=== PATIENT | female | born 1955 | race Caucasian/White ===

== ENCOUNTER 2021-01-30 20:51 | Emergency (ER) | payer MEDICARE, BC ==
--- NOTE | 2021-01-30 21:24 | EDM.PDOC ---
ED HPI GENERAL MEDICAL PROBLEM - General Stated Complaint: HIGH BS AND CHILLS Time Seen by Provider: 01/30/21 21:11 Source of Information: Reports: Patient - History of Present Illness INITIAL COMMENTS - FREE TEXT/NARRATIVE: Beverly is a 65 y/o female who presents to the ER with a 1 day history of chills. She apparently had a temp of 102 at home. Her blood suagr has also been elevated. and she just started to dysuria. She is usually seen at the [facility] in [place]. Has not had much of an appetite the last day. - Related Data Home Meds: Home Meds Levofloxacin [Levaquin] 500 mg PO DAILY #10 tablet 01/30/21 [Rx] Review of Systems - Review of Systems Review Of Systems: See Below Constitutional: Reports: Chills, Fever Eyes: Reports: No Symptoms Ears: Reports: No Symptoms Nose: Reports: No Symptoms Mouth/Throat: Reports: No Symptoms Respiratory: Reports: No Symptoms Cardiovascular: Reports: No Symptoms GI/Abdominal: Reports: Decreased Appetite Genitourinary: Reports: Dysuria Musculoskeletal: Reports: No Symptoms Skin: Reports: No Symptoms Neurological: Reports: No Symptoms Psychiatric: Reports: No Symptoms ED EXAM, GENERAL - Physical Exam Exam: See Below General Appearance: Alert, WD/WN, No Apparent Distress (Elderly female. SItting quietly on the ER cart.) Ears: Hearing Grossly Normal Nose: Normal Inspection Throat/Mouth: Normal Inspection, Normal Voice Head: Atraumatic, Normocephalic Neck: Normal Inspection, Supple Respiratory/Chest: No Respiratory Distress, Lungs Clear, Chest Non-Tender Cardiovascular: Normal Peripheral Pulses, Regular Rate, Rhythm GI/Abdominal: Normal Bowel Sounds, Soft (Female) Exam: Deferred Rectal (Female) Exam: Deferred Back Exam: Normal Inspection Extremities: No Pedal Edema, Normal Capillary Refill Neurological: Alert, Oriented, CN II-XII Intact, Normal Cognition, Normal Gait Skin Exam: Warm, Dry, Intact, Normal Color, No Rash Course - Vital Signs Text/Narrative:: 2110 The patient was seen by the DIRECTOR OF REHABILITATION. Labs ordered. She was given APAP 650mg po x 1 for fever of 103.2. 2230 Labs reviewed. CBC WBC=13.2, Neuts=86%. CMP Evmwef=217, BUN=22, Slip Bridge Operator=1.8, Mawbywy=172. UA +nitrates, sm ketones, WBC=20-30, Leuk Es=-small, Bacteria=many. Urine Cx pending. Will given Ceftriaxone 1gm IVP and a liter fo NS. Patient denies pain or nausea at this time. Will plan Levaquin for outpatient abx therapy. Patient denied any pain or nausea. Her fever did come down from the dose of APAP that she was given.\ Patient was given discharge instructions and left the ER in stable condition. - Orders/Labs/Meds Orders: Active Orders 24 hr Category Date Time Status CULTURE URINE [RM] Stat Lab 01/30/21 21:17 Received Sodium Chloride 0.9% [Normal Saline] 1,000 ml Med 01/30/21 22:30 Active IV ONETIME Medication Orders Sodium Chloride (Normal Saline) 1,000 mls @ 999 mls/hr IV ONETIME ONE Stop: 01/30/21 23:30 Labs: Laboratory Tests 01/30/21 01/30/21 01/30/21 Range/Units 21:08 21:17 21:36 WBC 13.2 H (4.0-10.0) x10^3/uL RBC 3.83 L (4.00-5.50) x10^6/uL Hgb 12.0 (12.0-16.0) g/dL Hct 34.3 (33.0-47.0) % MCV 89.6 (78.0-93.0) fL MCH 31.3 (26.0-32.0) pg MCHC 35.0 (32.0-36.0) g/dL RDW Coeff of Kris 12.2 (10.0-15.0) % Plt Count 298 (130-400) x10^3/uL Add Manual Diff Yes Neutrophils % (Manual) 86 H (50-80) % Band Neutrophils % 3 (0-6) % Lymphocytes % (Manual) 5 L (25-50) % Reactive Lymphs % 2 H (0) % Monocytes % (Manual) 4 (2-11) % Hypersegmented Neuts Few H Platelet Estimate Adequate Polychromasia Rare Target Cells Rare Sodium (136-145) mmol/L Potassium (3.5-5.1) mmol/L Chloride (98-107) mmol/L Carbon Dioxide (21-32) mmol/L Anion Gap (5-15) mmol/L BUN (7-18) mg/dL Creatinine (0.55-1.02) mg/dL Est Cr Clr Drug Dosing Estimated GFR (MDRD) Glucose (70-99) mg/dL POC Glucose 370 H (70-99) mg/dL Calcium (8.5-10.1) mg/dL Urine Color Yellow (YELLOW) Urine Appearance Slightly cloudy H (CLEAR) Urine pH 5.5 (5.0-8.0) Ur Specific [place] 1.020 Urine Protein >=300 H (NEGATIVE) mg/dL Urine Glucose (UA) 500 H (NEGATIVE) mg/dL Urine Ketones 15 H (NEGATIVE) mg/dL Urine Occult Blood Moderate H (NEGATIVE) Urine Nitrite Positive H (NEGATIVE) Urine Bilirubin Negative (NEGATIVE) Urine Urobilinogen 0.2 (0.2) EU/dL Ur Leukocyte Esterase Small H (NEGATIVE) U Hyaline Cast (Auto) Rare Urine RBC 5-10 H (NOT SEEN) /HPF Urine WBC 20-30 H (NOT SEEN) /HPF Ur Squamous Epith Cells Few H (NOT SEEN) /HPF Urine Bacteria Many H (NOT SEEN) /HPF Urine Mucus Few H (NOT SEEN) /LPF 01/30/21 Range/Units 21:36 WBC (4.0-10.0) x10^3/uL RBC (4.00-5.50) x10^6/uL Hgb (12.0-16.0) g/dL Hct (33.0-47.0) % MCV (78.0-93.0) fL MCH (26.0-32.0) pg MCHC (32.0-36.0) g/dL RDW Coeff of Kris (10.0-15.0) % Plt Count (130-400) x10^3/uL Add Manual Diff Neutrophils % (Manual) (50-80) % Band Neutrophils % (0-6) % Lymphocytes % (Manual) (25-50) % Reactive Lymphs % (0) % Monocytes % (Manual) (2-11) % Hypersegmented Neuts Platelet Estimate Polychromasia Target Cells Sodium 133 L (136-145) mmol/L Potassium 3.8 (3.5-5.1) mmol/L Chloride 94 L (98-107) mmol/L Carbon Dioxide 26 (21-32) mmol/L Anion Gap 16.8 H (5-15) mmol/L BUN 22 H (7-18) mg/dL Creatinine 1.8 H (0.55-1.02) mg/dL Est Cr Clr Drug Dosing TNP Estimated GFR (MDRD) 28 Glucose 406 H* (70-99) mg/dL POC Glucose (70-99) mg/dL Calcium 9.2 (8.5-10.1) mg/dL Urine Color (YELLOW) Urine Appearance (CLEAR) Urine pH (5.0-8.0) Ur Specific [place] Urine Protein (NEGATIVE) mg/dL Urine Glucose (UA) (NEGATIVE) mg/dL Urine Ketones (NEGATIVE) mg/dL Urine Occult Blood (NEGATIVE) Urine Nitrite (NEGATIVE) Urine Bilirubin (NEGATIVE) Urine Urobilinogen (0.2) EU/dL Ur Leukocyte Esterase (NEGATIVE) U Hyaline Cast (Auto) Urine RBC (NOT SEEN) /HPF Urine WBC (NOT SEEN) /HPF Ur Squamous Epith Cells (NOT SEEN) /HPF Urine Bacteria (NOT SEEN) /HPF Urine Mucus (NOT SEEN) /LPF Meds: Medications Generic Name Dose Route Start Last Admin Trade Name Freq PRN Reason Stop Dose Admin Sodium Chloride 1,000 mls @ 999 mls/hr 01/30/21 22:30 Normal Saline IV 01/30/21 23:30 ONETIME ONE Discontinued Medications Generic Name Dose Route Start Last Admin Trade Name Freq PRN Reason Stop Dose Admin Acetaminophen 650 mg 01/30/21 21:22 Acetaminophen 325 Mg Tab PO 01/30/21 21:23 NOW ONE Ceftriaxone Sodium 1 gm 01/30/21 22:30 Ceftriaxone 1 Gm Vial IVPUSH 01/30/21 22:31 STAT ONE Departure - Departure Time of Disposition: 22:46 Disposition: Home, Self-Care 01 Condition: Good Clinical Impression: Pyelonephritis Diabetes Qualifiers: Diabetes mellitus type: type 2 Diabetes mellitus snf insulin use: unspecified snf insulin use status Diabetes mellitus complication status: without complication Qualified Code(s): E11.9 - Type 2 diabetes mellitus without complications - Discharge Information *PRESCRIPTION DRUG MONITORING PROGRAM REVIEWED*: Not Applicable *COPY OF PRESCRIPTION DRUG MONITORING REPORT IN PATIENT DAMIÁN: Not Applicable Prescriptions: Levofloxacin [Levaquin] 500 mg PO DAILY #10 tablet Instructions: Pyelonephritis, Adult Referrals: PCP,Not In Area [Primary Care Provider] - - My Orders Last 24 Hours: My Active Orders 01/30/21 21:17 CULTURE URINE [RM] Stat 01/30/21 22:30 Sodium Chloride 0.9% [Normal Saline] 1,000 ml IV ONETIME - Assessment/Plan Last 24 Hours: My Active Orders 01/30/21 21:17 CULTURE URINE [RM] Stat 01/30/21 22:30 Sodium Chloride 0.9% [Normal Saline] 1,000 ml IV ONETIME Assessment:: 1)Pyelonephritis 2)Hx Diabetes Mellitus Plan: -Levaquin 500mg oral daily x 10 days #10(Rx) -Zofran 4 mg oral very 6 hours as needed for nausea #6(Rx) -Use acetaminophen or ibuprofen as needed for fever/pain -Push fluids -Rest -Your blood sugars will run higher since you have an infection. If you feel more ill and are not able to take your meds for any reason, you need to come back to the nearest ER for possible admission -Follow up next week for recheck with your Primary Care Physician
[2021-01-30 21:54] LABS: CHLORIDE,CL 94 mmol/L (98-107); SODIUM,NA 133 mmol/L (136-145)
[2021-01-30 21:56] LABS: ANION GAP 16.8 mmol/L (5-15)
[2021-01-30] MEDS: Acetaminophen 325 MG Tab PO ONE (21:56)
[2021-01-30] MEDS: cefTRIAXone 1 GM Vial IVPUSH ONE (22:45)
[2021-01-30] MEDS: Sodium Chloride 0.9% 1,000 ML IV ONE (22:45)
== END 2021-01-31 00:05 | disposition home or self-care (01) ==
LOC: VM.ED 20:51
DX: E11.9 Type 2 diabetes mellitus without complications (principal); N12 Tubulo-interstitial nephritis, not specified as acute or chronic
CPT/HCPCS: 36415; 80048; 81001; 82947; 85025; 87086; 87088; 87186; 96374; 99283; A9270; J0696; J7030; 99284

== ENCOUNTER 2021-01-31 16:40 | Observation (INO) | payer MEDICARE, BC ==
[2021-01-31] MEDS ORDERED: Ketorolac 30 MG/ML SDV IVPUSH ONE (16:56)
[2021-01-31] MEDS ORDERED: Ondansetron 4 MG/2 ML SDV IVPUSH ONE (16:56)
[2021-01-31] MEDS ORDERED: Sodium Chloride 0.9% 1,000 ML IV ONE (16:56)
--- NOTE | 2021-01-31 17:09 | EDM.PDOC ---
ED HPI GENERAL MEDICAL PROBLEM - General Chief Complaint: General Stated Complaint: SHAKING,DEHYDRATION Time Seen by Provider: 01/31/21 17:07 Source of Information: Reports: Patient, Family - History of Present Illness INITIAL COMMENTS - FREE TEXT/NARRATIVE: Beverly is a 65 y/o female who comes to the ER reporting that she is not feeling any better. She was seen last night for pyelonephritis and sent home with oral Levaquin. She took that this AM and then has also been taking APAP an ibuprofen. She is now shaking and has gotten nauseated. She did vomit on arrival to the ER. - Related Data Allergies Allergy/AdvReac Type Severity Reaction Status Date / Time No Known Allergies Allergy Verified 01/31/21 16:59 Home Meds: Home Meds Levofloxacin [Levaquin] 500 mg PO DAILY #10 tablet 01/30/21 [Rx] Aspirin 81 mg PO DAILY 01/31/21 [History] Calcium Carbonate/Vitamin D3 [Caltrate 600 + D Soft Chew Tab] 1 each PO BIDMEALS 01/31/21 [History] Losartan [Cozaar] 100 mg PO DAILY 01/31/21 [History] Lovastatin 20 mg PO BEDTIME 01/31/21 [History] Metoprolol Succinate [Toprol XL 100mg] 100 mg PO DAILY 01/31/21 [History] Multivitamin with Minerals [Multiple Vitamin] 1 tab PO DAILY 01/31/21 [History] Semaglutide [Rybelsus] 7 mg PO DAILY 01/31/21 [History] glipiZIDE [Glipizide ER] 10 mg PO BID 01/31/21 [History] hydroCHLOROthiazide [Hydrochlorothiazide] 25 mg PO DAILY 01/31/21 [History] metFORMIN [Glucophage XR] 2,000 mg PO DAILY 01/31/21 [History] Past Medical History Genitourinary History: Reports: UTI, Recurrent Endocrine/Metabolic History: Reports: Diabetes, Type II Social & Family History - Tobacco Use Tobacco Use Status *Q: Unknown Ever Used Tobacco ED ROS GENERAL - Review of Systems Review Of Systems: See Below Constitutional: Reports: Fever, Chills, Malaise, Weakness HEENT: Reports: No Symptoms Respiratory: Reports: No Symptoms Cardiovascular: Reports: No Symptoms Endocrine: Reports: No Symptoms GI/Abdominal: Reports: Decreased Appetite, Nausea, Vomiting Musculoskeletal: Reports: No Symptoms Skin: Reports: No Symptoms Neurological: Reports: No Symptoms Psychiatric: Reports: No Symptoms Hematologic/Lymphatic: Reports: No Symptoms Immunologic: Reports: No Symptoms ED EXAM, GENERAL - Physical Exam Exam: See Below General Appearance: Alert, WD/WN (Adult female, appears to not feel well.), Other (Patient is shaking on exam) Eye Exam: Bilateral Eye: PERRL Ears: Hearing Grossly Normal Nose: Normal Inspection Throat/Mouth: Normal Inspection, Normal Lips, Perioral Cyanosis Neck: Normal Inspection, Supple Respiratory/Chest: No Respiratory Distress, Lungs Clear, Chest Non-Tender Cardiovascular: Normal Peripheral Pulses, Regular Rate, Rhythm GI/Abdominal: Normal Bowel Sounds, Soft, Non-Tender (Female) Exam: Deferred Rectal (Female) Exam: Deferred Back Exam: Normal Inspection Extremities: Normal Inspection, Normal Range of Motion, Normal Capillary Refill Neurological: Alert, Oriented, CN II-XII Intact Psychiatric: Flat Affect Skin Exam: Warm, Dry, Intact, Normal Color Lymphatic: No Adenopathy Course - Vital Signs Text/Narrative:: 1704 The patient was seen by the RN TRANSITIONAL. Labs done. She was given a liter of IV fluids, Zofran 4mg IVP, and Toradol 30mg IVP. 1830 Lab reviewed. Note WBC=15.0, Neuts=85%; CMP BUN=25, Contract Project Manager=2.0, Zlpvtgo=[id number]. CRP=39.6. 24 hours urine cx report noted gram neg rods, should be covered with Levaquin. WBC is increasing and appears to be a bit more dehydrated. Having trouble with oral meds at home and is also diabetic. Discussed with patient and her and will admit her to Observation for IV abx, serial labs, and symptomatic cares. See Observation orders. COVID test ordered prior to admission. Last Recorded V/S: Last Vital Signs Temp 36.9 C 01/31/21 18:18 Pulse 101 H 01/31/21 18:18 Resp 12 01/31/21 18:18 BP 126/59 L 01/31/21 18:18 Pulse Ox 94 L 01/31/21 18:18 - Orders/Labs/Meds Orders: Active Orders 24 hr Category Date Time Status Patient Status [ADT] Routine ADT 01/31/21 18:29 Ordered Labs: Laboratory Tests 01/31/21 01/31/21 Range/Units 17:18 17:18 WBC 15.0 H (4.0-10.0) x10^3/uL RBC 4.18 (4.00-5.50) x10^6/uL Hgb 12.9 (12.0-16.0) g/dL Hct 36.9 (33.0-47.0) % MCV 88.3 (78.0-93.0) fL MCH 30.9 (26.0-32.0) pg MCHC 35.0 (32.0-36.0) g/dL RDW Coeff of Kris 12.2 (10.0-15.0) % Plt Count 289 (130-400) x10^3/uL Add Manual Diff Yes Neutrophils % (Manual) 85 H (50-80) % Lymphocytes % (Manual) 6 L (25-50) % Atypical Lymphs % 2 H (0) % Monocytes % (Manual) 7 (2-11) % Hypersegmented Neuts Few H Platelet Estimate Adequate Acanthocytes (Spur) Occasional Sodium 136 (136-145) mmol/L Potassium 4.2 (3.5-5.1) mmol/L Chloride 97 L (98-107) mmol/L Carbon Dioxide 23 (21-32) mmol/L Anion Gap 20.2 H (5-15) mmol/L BUN 25 H (7-18) mg/dL Creatinine 2.0 H (0.55-1.02) mg/dL Est Cr Clr Drug Dosing TNP Estimated GFR (MDRD) 25 Glucose 336 H (70-99) mg/dL Calcium 9.1 (8.5-10.1) mg/dL C-Reactive Protein 39.6 H (<=0.9) mg/dL Meds: Medications Discontinued Medications Generic Name Dose Route Start Last Admin Trade Name Freq PRN Reason Stop Dose Admin Sodium Chloride 1,000 mls @ 999 mls/hr 01/31/21 16:56 01/31/21 17:14 Normal Saline IV 01/31/21 17:56 999 mls/hr ONETIME ONE Administration Ketorolac Tromethamine 30 mg 01/31/21 16:56 01/31/21 17:23 Ketorolac 30 Mg/Ml Sdv IVPUSH 01/31/21 16:57 30 mg ONETIME ONE Administration Ondansetron HCl 4 mg 01/31/21 16:56 01/31/21 17:16 Ondansetron 4 Mg/2 Ml Sdv IVPUSH 01/31/21 16:57 4 mg ONETIME ONE Administration Departure - Departure Time of Disposition: 18:31 Disposition: Refer to Observation Condition: Good Clinical Impression: Pyelonephritis Diabetes Qualifiers: Diabetes mellitus type: type 2 Diabetes mellitus terminal carman insulin use: unspecified terminal carman insulin use status Diabetes mellitus complication status: without complication Qualified Code(s): E11.9 - Type 2 diabetes mellitus without complications - Discharge Information Referrals: Lidya Dhillon NP [Primary Care Provider] - Forms: ED Department Discharge Sepsis Event Note (ED) - Evaluation Sepsis Screening Result: No Definite Risk - Focused Exam Vital Signs: Vital Signs Temp Pulse Resp BP Pulse Ox 01/31/21 18:18 36.9 C 101 H 12 126/59 L 94 L 01/31/21 16:45 36.4 C 99 18 141/62 H 99 - My Orders Last 24 Hours: My Active Orders 01/31/21 18:29 Patient Status [ADT] Routine - Assessment/Plan Admission H&P: Please use this note as an admission H&P Last 24 Hours: My Active Orders 01/31/21 18:29 Patient Status [ADT] Routine Assessment:: 1)Pyelonephritis,Failed outpatient therapy 2)DM Plan: -Admit for IV abx and IV fluids -Serial Labs
[2021-01-31 17:36] LABS: CHLORIDE,CL 97 mmol/L (98-107); SODIUM,NA 136 mmol/L (136-145)
[2021-01-31 17:39] LABS: ANION GAP 20.2 mmol/L (5-15)
[2021-01-31] MEDS ORDERED: Acetaminophen 325 MG Tab PO PRN (18:36)
[2021-01-31] MEDS ORDERED: Promethazine 25 MG Tab PO PRN (18:36)
[2021-01-31] MEDS ORDERED: Acetaminophen/oxyCODONE 325-5 MG Tab PO PRN ×2 (18:36)
[2021-01-31] MEDS ORDERED: Sodium Chloride 0.9% 10 ML Syringe FLUSH PRN (18:36)
[2021-01-31] MEDS ORDERED: Ondansetron 4 MG Tab.DIS PO PRN (18:36)
[2021-01-31] MEDS ORDERED: Levofloxacin/Dextrose 5%-Water 500 MG in Premix Bag 1 BAG IV SCH (18:45)
[2021-01-31] MEDS: glipiZIDE 10 MG Tab.ER PO SCH (19:41)
[2021-01-31] MEDS: atorvaSTATin 10 MG Tab PO SCH (19:42)
[2021-01-31] MEDS ORDERED: Meropenem 1 GM in Sodium Chloride 0.9% 100 ML IV SCH (20:00)
[2021-01-31] MEDS ORDERED: LOVASTATIN 20 MG PO SCH (20:00)
[2021-02-01] MEDS: Meropenem 500 MG in Sodium Chloride 0.9% 100 ML IV SCH ×3 (04:47→19:31)
[2021-02-01] MEDS ORDERED: Non-Formulary Medication 1 Each (Metformin [Glucophage Xr] 500 MG Tab.Er) PO SCH ×2 (08:00→18:45)
[2021-02-01] MEDS: Metoprolol Succinate 50 MG Tab.ER PO SCH (08:03)
[2021-02-01] MEDS: glipiZIDE 10 MG Tab.ER PO SCH ×2 (08:03→17:56)
[2021-02-01] MEDS: Losartan 50 MG Tab PO SCH (08:04)
[2021-02-01] MEDS: Hydrochlorothiazide 25 MG Tab PO SCH (08:04)
[2021-02-01] MEDS: Aspirin 81 MG Tab.Chew PO SCH (08:04)
[2021-02-01 08:19] LABS: ANION GAP 13.5 mmol/L (5-15)
[2021-02-01] MEDS: Sodium Chloride 0.9% 1,000 ML IV SCH (10:37)
[2021-02-01] MEDS ORDERED: 50% Dextrose in Water 50 ML Syringe IV PRN (12:31)
[2021-02-01] MEDS ORDERED: Glucagon,Human Recombinant 1 MG Vial IM PRN (12:31)
--- NOTE | 2021-02-01 12:31 | PCM.PN ---
- General Info Date of Service: 02/01/21 Subjective Update: Patient is seen on rounds. Report she is feeling better. No further shaking episodes, nausea seems to be gone. Has been up to the bathroom to void. - Review of Systems General: Reports: No Symptoms HEENT: Reports: No Symptoms Pulmonary: Reports: No Symptoms Cardiovascular: Reports: No Symptoms Gastrointestinal: Reports: No Symptoms Genitourinary: Reports: No Symptoms Musculoskeletal: Reports: No Symptoms Skin: Reports: No Symptoms Neurological: Reports: No Symptoms Psychiatric: Reports: No Symptoms - Patient Data Vitals - Most Recent: Last Vital Signs Temp 36.4 C 02/01/21 10:00 Pulse 85 02/01/21 10:00 Resp 16 02/01/21 10:00 BP 116/56 L 02/01/21 10:00 Pulse Ox 95 02/01/21 10:00 Weight - Most Recent: 75.296 kg I&O - Last 24 Hours: Intake & Output 01/31/21 02/01/21 02/01/21 22:59 06:59 14:59 Intake Total 100 385 Output Total 250 100 Balance -150 285 Lab Results Last 24 Hours: Laboratory Results - last 24 hr 01/31/21 01/31/21 01/31/21 Range/Units 17:18 17:18 18:32 WBC 15.0 H (4.0-10.0) x10^3/uL RBC 4.18 (4.00-5.50) x10^6/uL Hgb 12.9 (12.0-16.0) g/dL Hct 36.9 (33.0-47.0) % MCV 88.3 (78.0-93.0) fL MCH 30.9 (26.0-32.0) pg MCHC 35.0 (32.0-36.0) g/dL RDW Coeff of Kris 12.2 (10.0-15.0) % Plt Count 289 (130-400) x10^3/uL Add Manual Diff Yes Neutrophils % (Manual) 85 H (50-80) % Lymphocytes % (Manual) 6 L (25-50) % Atypical Lymphs % 2 H (0) % Monocytes % (Manual) 7 (2-11) % Hypersegmented Neuts Few H Platelet Estimate Adequate Poikilocytosis Acanthocytes (Spur) Occasional Sodium 136 (136-145) mmol/L Potassium 4.2 (3.5-5.1) mmol/L Chloride 97 L (98-107) mmol/L Carbon Dioxide 23 (21-32) mmol/L Anion Gap 20.2 H (5-15) mmol/L BUN 25 H (7-18) mg/dL Creatinine 2.0 H (0.55-1.02) mg/dL Est Cr Clr Drug Dosing TNP Estimated GFR (MDRD) 25 Glucose 336 H (70-99) mg/dL POC Glucose (70-99) mg/dL Calcium 9.1 (8.5-10.1) mg/dL C-Reactive Protein 39.6 H (<=0.9) mg/dL SARS CoV-2 RNA Rapid BERNADINE Negative (NEGATIVE) 01/31/21 02/01/21 02/01/21 Range/Units 21:38 04:57 07:31 WBC 10.1 H (4.0-10.0) x10^3/uL RBC 3.39 L (4.00-5.50) x10^6/uL Hgb 10.4 L D (12.0-16.0) g/dL Hct 30.4 L (33.0-47.0) % MCV 89.7 (78.0-93.0) fL MCH 30.7 (26.0-32.0) pg MCHC 34.2 (32.0-36.0) g/dL RDW Coeff of Kris 12.1 (10.0-15.0) % Plt Count 259 (130-400) x10^3/uL Add Manual Diff Yes Neutrophils % (Manual) 77 (50-80) % Lymphocytes % (Manual) 11 L (25-50) % Atypical Lymphs % 2 H (0) % Monocytes % (Manual) 10 (2-11) % Hypersegmented Neuts Platelet Estimate Adequate Poikilocytosis Occasional Acanthocytes (Spur) Few Sodium (136-145) mmol/L Potassium (3.5-5.1) mmol/L Chloride (98-107) mmol/L Carbon Dioxide (21-32) mmol/L Anion Gap (5-15) mmol/L BUN (7-18) mg/dL Creatinine (0.55-1.02) mg/dL Est Cr Clr Drug Dosing Estimated GFR (MDRD) Glucose (70-99) mg/dL POC Glucose 356 H 219 H (70-99) mg/dL Calcium (8.5-10.1) mg/dL C-Reactive Protein (<=0.9) mg/dL SARS CoV-2 RNA Rapid BERNADINE (NEGATIVE) 02/01/21 Range/Units 07:31 WBC (4.0-10.0) x10^3/uL RBC (4.00-5.50) x10^6/uL Hgb (12.0-16.0) g/dL Hct (33.0-47.0) % MCV (78.0-93.0) fL MCH (26.0-32.0) pg MCHC (32.0-36.0) g/dL RDW Coeff of Kris (10.0-15.0) % Plt Count (130-400) x10^3/uL Add Manual Diff Neutrophils % (Manual) (50-80) % Lymphocytes % (Manual) (25-50) % Atypical Lymphs % (0) % Monocytes % (Manual) (2-11) % Hypersegmented Neuts Platelet Estimate Poikilocytosis Acanthocytes (Spur) Sodium 140 (136-145) mmol/L Potassium 3.5 (3.5-5.1) mmol/L Chloride 103 (98-107) mmol/L Carbon Dioxide 27 (21-32) mmol/L Anion Gap 13.5 (5-15) mmol/L BUN 28 H (7-18) mg/dL Creatinine 1.8 H (0.55-1.02) mg/dL Est Cr Clr Drug Dosing 28.78 Estimated GFR (MDRD) 28 Glucose 223 H (70-99) mg/dL POC Glucose (70-99) mg/dL Calcium 8.1 L (8.5-10.1) mg/dL C-Reactive Protein 31.7 H (<=0.9) mg/dL SARS CoV-2 RNA Rapid BERNADINE (NEGATIVE) Med Orders - Current: Current Medications Acetaminophen (Acetaminophen 325 Mg Tab) 650 mg PO Q4H PRN PRN Reason: Pain (Mild 1-3)/fever Aspirin (Aspirin 81 Mg Tab.Chew) 81 mg PO DAILY JO Last Admin: 02/01/21 08:04 Dose: 81 mg Documented by: Atorvastatin Calcium (Atorvastatin 10 Mg Tab) 5 mg PO BEDTIME [facility] Last Admin: 01/31/21 19:42 Dose: 5 mg Documented by: Glipizide (Glipizide 10 Mg Tab.Er) 10 mg PO BIDMEALS [facility] Last Admin: 02/01/21 08:03 Dose: 10 mg Documented by: Hydrochlorothiazide (Hydrochlorothiazide 25 Mg Tab) 25 mg PO DAILY [facility] Last Admin: 02/01/21 08:04 Dose: 25 mg Documented by: Levofloxacin/Dextrose 500 mg/ (Premix) 100 mls @ 100 mls/hr IV Q24H [facility] Meropenem 500 mg/ Sodium (Chloride) 100 mls @ 33 mls/hr IV Q8H [facility] Last Admin: 02/01/21 11:52 Dose: 33 mls/hr Documented by: Sodium Chloride (Normal Saline) 1,000 mls @ 125 mls/hr IV ASDIRECTED [facility] Last Admin: 02/01/21 10:37 Dose: 125 mls/hr Documented by: Losartan Potassium (Losartan 50 Mg Tab) 100 mg PO DAILY [facility] Last Admin: 02/01/21 08:04 Dose: 100 mg Documented by: Metoprolol Succinate (Metoprolol Succinate 50 Mg Tab.Er) 100 mg PO DAILY [facility] Last Admin: 02/01/21 08:03 Dose: 100 mg Documented by: Non-Formulary Medication (Metformin [Glucophage Xr]) 2,000 mg PO DAILY [facility] Non-Formulary Medication (Semaglutide [Rybelsus]) 7 mg PO DAILY [facility] Ondansetron HCl (Ondansetron 4 Mg Tab.Dis) 4 mg PO Q4H PRN PRN Reason: nausea, able to take PO Oxycodone/Acetaminophen (Acetaminophen/Oxycodone 325-5 Mg Tab) 1 tab PO Q4H PRN PRN Reason: Pain (moderate 4-6) Oxycodone/Acetaminophen (Acetaminophen/Oxycodone 325-5 Mg Tab) 2 tab PO Q4H PRN PRN Reason: Pain (moderate 4-6) Promethazine HCl (Promethazine 25 Mg Tab) 25 mg PO Q6H PRN PRN Reason: nausea, able to take PO Sodium Chloride (Sodium Chloride 0.9% 10 Ml Syringe) 10 ml FLUSH ASDIRECTED PRN PRN Reason: Keep Vein Open Discontinued Medications Sodium Chloride (Normal Saline) 1,000 mls @ 999 mls/hr IV ONETIME ONE Stop: 01/31/21 17:56 Last Admin: 01/31/21 17:14 Dose: 999 mls/hr Documented by: Meropenem 1 gm/ Sodium (Chloride) 100 mls @ 200 mls/hr IV Q8H [facility] Last Admin: 01/31/21 19:41 Dose: 200 mls/hr Documented by: Ketorolac Tromethamine (Ketorolac 30 Mg/Ml Sdv) 30 mg IVPUSH ONETIME ONE Stop: 01/31/21 16:57 Last Admin: 01/31/21 17:23 Dose: 30 mg Documented by: Ondansetron HCl (Ondansetron 4 Mg/2 Ml Sdv) 4 mg IVPUSH ONETIME ONE Stop: 01/31/21 16:57 Last Admin: 01/31/21 17:16 Dose: 4 mg Documented by: - Exam General: Alert, Oriented, No Acute Distress HEENT: Pupils Equal Neck: Supple Lungs: Clear to Auscultation, Normal Respiratory Effort Cardiovascular: Regular Rate GI/Abdominal Exam: Normal Bowel Sounds, Soft, Non-Tender (Female) Exam: Deferred Back Exam: No: CVA Tenderness (L), CVA Tenderness (R) Extremities: Normal Inspection, Normal Range of Motion, Non-Tender, Normal Capil berenice Refill Skin: Warm, Dry, Intact Psy/Mental Status: Alert, Normal Affect - Patient Data Lab Results Last 24 hrs: Laboratory Results - last 24 hr 01/31/21 01/31/21 01/31/21 Range/Units 17:18 17:18 18:32 WBC 15.0 H (4.0-10.0) x10^3/uL RBC 4.18 (4.00-5.50) x10^6/uL Hgb 12.9 (12.0-16.0) g/dL Hct 36.9 (33.0-47.0) % MCV 88.3 (78.0-93.0) fL MCH 30.9 (26.0-32.0) pg MCHC 35.0 (32.0-36.0) g/dL RDW Coeff of Kris 12.2 (10.0-15.0) % Plt Count 289 (130-400) x10^3/uL Add Manual Diff Yes Neutrophils % (Manual) 85 H (50-80) % Lymphocytes % (Manual) 6 L (25-50) % Atypical Lymphs % 2 H (0) % Monocytes % (Manual) 7 (2-11) % Hypersegmented Neuts Few H Platelet Estimate Adequate Poikilocytosis Acanthocytes (Spur) Occasional Sodium 136 (136-145) mmol/L Potassium 4.2 (3.5-5.1) mmol/L Chloride 97 L (98-107) mmol/L Carbon Dioxide 23 (21-32) mmol/L Anion Gap 20.2 H (5-15) mmol/L BUN 25 H (7-18) mg/dL Creatinine 2.0 H (0.55-1.02) mg/dL Est Cr Clr Drug Dosing TNP Estimated GFR (MDRD) 25 Glucose 336 H (70-99) mg/dL POC Glucose (70-99) mg/dL Calcium 9.1 (8.5-10.1) mg/dL C-Reactive Protein 39.6 H (<=0.9) mg/dL SARS CoV-2 RNA Rapid BERNADINE Negative (NEGATIVE) 01/31/21 02/01/21 02/01/21 Range/Units 21:38 04:57 07:31 WBC 10.1 H (4.0-10.0) x10^3/uL RBC 3.39 L (4.00-5.50) x10^6/uL Hgb 10.4 L D (12.0-16.0) g/dL Hct 30.4 L (33.0-47.0) % MCV 89.7 (78.0-93.0) fL MCH 30.7 (26.0-32.0) pg MCHC 34.2 (32.0-36.0) g/dL RDW Coeff of Kris 12.1 (10.0-15.0) % Plt Count 259 (130-400) x10^3/uL Add Manual Diff Yes Neutrophils % (Manual) 77 (50-80) % Lymphocytes % (Manual) 11 L (25-50) % Atypical Lymphs % 2 H (0) % Monocytes % (Manual) 10 (2-11) % Hypersegmented Neuts Platelet Estimate Adequate Poikilocytosis Occasional Acanthocytes (Spur) Few Sodium (136-145) mmol/L Potassium (3.5-5.1) mmol/L Chloride (98-107) mmol/L Carbon Dioxide (21-32) mmol/L Anion Gap (5-15) mmol/L BUN (7-18) mg/dL Creatinine (0.55-1.02) mg/dL Est Cr Clr Drug Dosing Estimated GFR (MDRD) Glucose (70-99) mg/dL POC Glucose 356 H 219 H (70-99) mg/dL Calcium (8.5-10.1) mg/dL C-Reactive Protein (<=0.9) mg/dL SARS CoV-2 RNA Rapid BERNADINE (NEGATIVE) 02/01/21 Range/Units 07:31 WBC (4.0-10.0) x10^3/uL RBC (4.00-5.50) x10^6/uL Hgb (12.0-16.0) g/dL Hct (33.0-47.0) % MCV (78.0-93.0) fL MCH (26.0-32.0) pg MCHC (32.0-36.0) g/dL RDW Coeff of Kris (10.0-15.0) % Plt Count (130-400) x10^3/uL Add Manual Diff Neutrophils % (Manual) (50-80) % Lymphocytes % (Manual) (25-50) % Atypical Lymphs % (0) % Monocytes % (Manual) (2-11) % Hypersegmented Neuts Platelet Estimate Poikilocytosis Acanthocytes (Spur) Sodium 140 (136-145) mmol/L Potassium 3.5 (3.5-5.1) mmol/L Chloride 103 (98-107) mmol/L Carbon Dioxide 27 (21-32) mmol/L Anion Gap 13.5 (5-15) mmol/L BUN 28 H (7-18) mg/dL Creatinine 1.8 H (0.55-1.02) mg/dL Est Cr Clr Drug Dosing 28.78 Estimated GFR (MDRD) 28 Glucose 223 H (70-99) mg/dL POC Glucose (70-99) mg/dL Calcium 8.1 L (8.5-10.1) mg/dL C-Reactive Protein 31.7 H (<=0.9) mg/dL SARS CoV-2 RNA Rapid BERNADINE (NEGATIVE) Result Diagrams: 02/01/21 07:31 02/01/21 07:31 Sepsis Event Note - Evaluation Sepsis Screening Result: No Definite Risk - Focused Exam Vital Signs: Vital Signs Temp Pulse Pulse Resp BP BP Pulse Ox 02/01/21 10:00 36.4 C 85 16 116/56 L 95 02/01/21 08:04 114/56 L 02/01/21 08:03 87 114/56 L 02/01/21 04:51 37.1 C 93 16 133/60 93 L 02/01/21 02:00 36.9 C 90 16 124/46 L 96 - Problem List Review Problem List Initiated/Reviewed/Updated: Yes - My Orders Last 24 Hours: My Active Orders 01/31/21 18:29 Patient Status [ADT] Routine 01/31/21 18:36 Blood Glucose Check, Bedside [RC] 07,11,17,20 Intake and Output [RC] 06,18 Oxygen Therapy [RC] PRN Up With Assistance [RC] 08,20 VTE/DVT Education [RC] .PRN Vital Signs [RC] 02,06,10,14,18,22 Acetaminophen [TylenoL] 650 mg PO Q4H PRN Acetaminophen/oxyCODONE [Percocet 325-5 MG] 1 tab PO Q4H PRN Acetaminophen/oxyCODONE [Percocet 325-5 MG] 2 tab PO Q4H PRN Ondansetron [Zofran ODT] 4 mg PO Q4H PRN Promethazine [Phenergan] 25 mg PO Q6H PRN Sodium Chloride 0.9% [Saline Flush] 10 ml FLUSH ASDIRECTED PRN Glucose Management Sub Q Reflex [OM.PC] Click to Edit Peripheral IV Insertion Adult [OM.PC] Routine Resuscitation Status Routine 01/31/21 18:38 Diabetes Education [RC] .PRN 01/31/21 18:39 Dietary Supplements [RC] ,01/31/21 18:45 Levofloxacin/Dextrose 5%-Water [Levaquin in D5W 500 MG/100 ML] 500 mg Premix Bag 1 bag IV Q24H 01/31/21 19:00 glipiZIDE [Glucotrol XL] 10 mg PO BIDMEALS 01/31/21 20:00 atorvaSTATin [Lipitor] 5 mg PO BEDTIME 02/01/21 04:00 Meropenem [Merrem] 500 mg Sodium Chloride 0.9% [Normal Saline] 100 ml IV Q8H 02/01/21 Breakfast [employer] Diet [DIET] 02/01/21 08:00 Aspirin 81 mg PO DAILY Losartan [Cozaar] 100 mg PO DAILY Metoprolol Succinate [Toprol XL] 100 mg PO DAILY Semaglutide [Rybelsus] 7 mg PO DAILY hydroCHLOROthiazide 25 mg PO DAILY metFORMIN [Glucophage XR] 2,000 mg PO DAILY 02/01/21 10:30 Sodium Chloride 0.9% [Normal Saline] 1,000 ml IV ASDIRECTED 02/02/21 05:11 BASIC METABOLIC PANEL,BMP [CHEM] AM C-REACTIVE PROTEIN [CHEM] AM CBC WITH AUTO DIFF [HEME] AM - Assessment Assessment:: 1)Pyelonephritis 2)DM Type 2 3)Renal Insufficiency - Plan Plan:: -WBC is improving. WBC 10.1 and diff normalized. Note BUN increased to 28 and Manager Cash also increased to 2.0. -Continue IV fluids today -Receiving Meropenem. Pharmacy recommended alternatie doing due to kidney function -Will add sliding scale insulin coverage while admitted. Blood sugars running in the 300s. -AM labs
[2021-02-01] MEDS: Insulin Regular, Human 100 Units/ML 3 ML Vial SUBCUT SCH ×2 (14:34→17:56)
[2021-02-01] MEDS: atorvaSTATin 10 MG Tab PO SCH (19:32)
[2021-02-02] MEDS: Sodium Chloride 0.9% 1,000 ML IV SCH (00:47)
[2021-02-02] MEDS: Meropenem 500 MG in Sodium Chloride 0.9% 100 ML IV SCH (05:03)
[2021-02-02] MEDS: Hydrochlorothiazide 25 MG Tab PO SCH (07:54)
[2021-02-02] MEDS: glipiZIDE 10 MG Tab.ER PO SCH (07:54)
[2021-02-02] MEDS: Aspirin 81 MG Tab.Chew PO SCH (07:54)
[2021-02-02] MEDS: Losartan 50 MG Tab PO SCH (07:54)
[2021-02-02] MEDS: Metoprolol Succinate 50 MG Tab.ER PO SCH (07:54)
[2021-02-02] MEDS: Insulin Regular, Human 100 Units/ML 3 ML Vial SUBCUT SCH (07:56)
[2021-02-02 09:17] LABS: ANION GAP 12.4 mmol/L (5-15)
[2021-02-02] MEDS ORDERED: Amoxicillin/Clavulanate K 500-125 MG Tab PO ONE (14:42)
--- NOTE | 2021-02-02 23:13 | PCM.DCSUM1 ---
Discharge Summary - Hospital Course Free Text/Narrative:: Pt. was admitted observation status for acute pyelonephritis and weakness. Pt. had initially been seen in ER and was discharged, only to return later at which time she was admitted. Pt. has a history of stage 3 chronic kidney disease. She was started on IV Merropenem. Urine cultures grew e coli susceptible to all antibiotics in the susceptibility spectrum. Labs were repeated this AM. Her white count was decreased, as was her CRP. Kidney function had improved as well. Pt. last dose of IV antibiotics was during rounds this AM. Pt. is very eager to be released this AM. She will be started on renally adjusted augmentin (500mg BID) which has activity against this strain of e coli. Will treat the patient for 10 days, and advise follow-up in 10 days time to ensure resolution of the infection. Diagnosis: Stroke: No - Discharge Data Discharge Date: 02/02/21 Discharge Disposition: Home, Self-Care 01 Condition: Good - Referral to Home Health Primary Care Physician: Lidya Dhillon NP - Discharge Diagnosis/Problem(s) (1) Pyelonephritis SNOMED Code(s): 69910639 ICD Code: N12 - TUBULO-INTERSTITIAL NEPHRITIS, NOT SPCF ACUTE OR CHRONIC Status: Acute - Patient Instructions Driving: Do Not Drive Showering/Bathing: May Shower Notify Provider of: Fever, Nausea and/or Vomiting - Discharge Plan Home Medications: Home Meds Aspirin 81 mg PO DAILY 01/31/21 [History] Calcium Carbonate/Vitamin D3 [Caltrate 600 + D Soft Chew Tab] 1 each PO BIDMEALS 01/31/21 [History] Losartan [Cozaar] 100 mg PO DAILY 01/31/21 [History] Lovastatin 20 mg PO BEDTIME 01/31/21 [History] Metoprolol Succinate [Toprol XL 100mg] 100 mg PO DAILY 01/31/21 [History] Multivitamin with Minerals [Multiple Vitamin] 1 tab PO DAILY 01/31/21 [History] Semaglutide [Rybelsus] 7 mg PO DAILY 01/31/21 [History] glipiZIDE [Glipizide ER] 10 mg PO BID 01/31/21 [History] hydroCHLOROthiazide [Hydrochlorothiazide] 25 mg PO DAILY 01/31/21 [History] metFORMIN [Glucophage XR] 2,000 mg PO DAILY 01/31/21 [History] Forms: ED Department Discharge Referrals: Lidya Dhillon NP [Primary Care Provider] - - Discharge Summary/Plan Comment DC Time >30 min.: Yes Discharge Summary/Plan Comment: Continue with current medications. Stop levaquin. Start augmentin 500mg 1 twice daily for 10 days Drink plenty of fluids. Tylenol for fever. Recheck in clinic in 10-14 days - General Info Functional Status: Reports: Pain Controlled, Tolerating Diet, Ambulating, Urinating - Review of Systems General: Reports: No Symptoms. Denies: Fever, Weakness HEENT: Reports: No Symptoms Pulmonary: Reports: No Symptoms Cardiovascular: Reports: No Symptoms Gastrointestinal: Reports: No Symptoms Genitourinary: Reports: No Symptoms Musculoskeletal: Reports: No Symptoms Skin: Reports: No Symptoms Neurological: Reports: No Symptoms Psychiatric: Reports: No Symptoms - Patient Data Vitals - Most Recent: Last Vital Signs Temp 36.6 C 02/02/21 05:24 Pulse 84 02/02/21 07:54 Resp 16 02/02/21 05:24 BP 131/66 02/02/21 07:54 Pulse Ox 96 02/02/21 05:24 Weight - Most Recent: 75.296 kg Lab Results - Last 24 hrs: Laboratory Results - last 24 hr 02/02/21 02/02/21 02/02/21 Range/Units 05:11 08:40 08:40 WBC 9.3 (4.0-10.0) x10^3/uL RBC 3.63 L (4.00-5.50) x10^6/uL Hgb 11.2 L (12.0-16.0) g/dL Hct 32.4 L (33.0-47.0) % MCV 89.3 (78.0-93.0) fL MCH 30.9 (26.0-32.0) pg MCHC 34.6 (32.0-36.0) g/dL RDW Coeff of Kris 12.1 (10.0-15.0) % Plt Count 276 (130-400) x10^3/uL Neut % (Auto) 70.4 (50.0-80.0) % Lymph % (Auto) 17.9 L (25.0-50.0) % Lucas % (Auto) 11.1 H (2.0-11.0) % Eos % (Auto) 0.4 (0.0-4.0) % Baso % (Auto) 0.2 (0.2-1.2) % Sodium 139 (136-145) mmol/L Potassium 3.4 L (3.5-5.1) mmol/L Chloride 103 (98-107) mmol/L Carbon Dioxide 27 (21-32) mmol/L Anion Gap 12.4 (5-15) mmol/L BUN 18 (7-18) mg/dL Creatinine 1.5 H (0.55-1.02) mg/dL Est Cr Clr Drug Dosing 34.54 mL/min Estimated GFR (MDRD) 35 Glucose 196 H (70-99) mg/dL POC Glucose 125 H (70-99) mg/dL Calcium 8.2 L (8.5-10.1) mg/dL Corrected Calcium 9.7 (8.5-10.1) mg/dL Total Bilirubin 0.5 (0.2-1.0) mg/dL AST 17 (15-37) U/L ALT 13 L (14-59) U/L Alkaline Phosphatase 57 (46-116) U/L C-Reactive Protein 19.1 H (<=0.9) mg/dL Total Protein 6.2 L (6.4-8.2) g/dL Albumin 2.1 L (3.4-5.0) g/dL Globulin 4.1 Albumin/Globulin Ratio 0.51 Med Orders - Current: Current Medications Discontinued Medications Acetaminophen (Acetaminophen 325 Mg Tab) 650 mg PO Q4H PRN PRN Reason: Pain (Mild 1-3)/fever Amoxicillin/Clavulanate Potassium (Amoxicillin/Clavulanate K 500-125 Mg Tab) 1 tab PO ONETIME ONE Stop: 02/02/21 14:43 Aspirin (Aspirin 81 Mg Tab.Chew) 81 mg PO DAILY [facility] Last Admin: 02/02/21 07:54 Dose: 81 mg Documented by: Atorvastatin Calcium (Atorvastatin 10 Mg Tab) 5 mg PO BEDTIME [facility] Last Admin: 02/01/21 19:32 Dose: 5 mg Documented by: Dextrose/Water (50% Dextrose In Water 50 Ml Syringe) 50 ml IV ASDIRECTED PRN PRN Reason: Hypoglycemia Glipizide (Glipizide 10 Mg Tab.Er) 10 mg PO BIDMEALS [facility] Last Admin: 02/02/21 07:54 Dose: 10 mg Documented by: Glucagon (Glucagon,Human Recombinant 1 Mg Vial) 1 mg IM ASDIRECTED PRN PRN Reason: Hypoglycemia Hydrochlorothiazide (Hydrochlorothiazide 25 Mg Tab) 25 mg PO DAILY [facility] Last Admin: 02/02/21 07:54 Dose: 25 mg Documented by: Sodium Chloride (Normal Saline) 1,000 mls @ 999 mls/hr IV ONETIME ONE Stop: 01/31/21 17:56 Last Admin: 01/31/21 17:14 Dose: 999 mls/hr Documented by: Levofloxacin/Dextrose 500 mg/ (Premix) 100 mls @ 100 mls/hr IV Q24H [facility] Last Admin: 02/01/21 21:13 Dose: Not Given Documented by: Meropenem 1 gm/ Sodium (Chloride) 100 mls @ 200 mls/hr IV Q8H [facility] Last Admin: 01/31/21 19:41 Dose: 200 mls/hr Documented by: Meropenem 500 mg/ Sodium (Chloride) 100 mls @ 33 mls/hr IV Q8H [facility] Last Admin: 02/02/21 05:03 Dose: 33 mls/hr Documented by: Sodium Chloride (Normal Saline) 1,000 mls @ 125 mls/hr IV ASDIRECTED [facility] Last Admin: 02/02/21 00:47 Dose: 125 mls/hr Documented by: Insulin Human Regular (Insulin Regular, Human 100 Units/Ml 3 Ml Vial) 0 unit SUBCUT TIDMEALS [facility]; Protocol Last Admin: 02/02/21 07:56 Dose: Not Given Documented by: Ketorolac Tromethamine (Ketorolac 30 Mg/Ml Sdv) 30 mg IVPUSH ONETIME ONE Stop: 01/31/21 16:57 Last Admin: 01/31/21 17:23 Dose: 30 mg Documented by: Losartan Potassium (Losartan 50 Mg Tab) 100 mg PO DAILY [facility] Last Admin: 02/02/21 07:54 Dose: 100 mg Documented by: Metoprolol Succinate (Metoprolol Succinate 50 Mg Tab.Er) 100 mg PO DAILY [facility] Last Admin: 02/02/21 07:54 Dose: 100 mg Documented by: Non-Formulary Medication (Metformin [Glucophage Xr]) 2,000 mg PO DAILY [facility] Last Admin: 02/01/21 21:13 Dose: Not Given Documented by: Non-Formulary Medication (Semaglutide [Rybelsus]) 7 mg PO DAILY [facility] Last Admin: 02/01/21 21:13 Dose: Not Given Documented by: Non-Formulary Medication (Metformin [Glucophage Xr]) 2,000 mg PO DAILY [facility] Non-Formulary Medication (Semaglutide [Rybelsus]) 7 mg PO DAILY [facility] Ondansetron HCl (Ondansetron 4 Mg/2 Ml Sdv) 4 mg IVPUSH ONETIME ONE Stop: 01/31/21 16:57 Last Admin: 01/31/21 17:16 Dose: 4 mg Documented by: Ondansetron HCl (Ondansetron 4 Mg Tab.Dis) 4 mg PO Q4H PRN PRN Reason: nausea, able to take PO Oxycodone/Acetaminophen (Acetaminophen/Oxycodone 325-5 Mg Tab) 1 tab PO Q4H PRN PRN Reason: Pain (moderate 4-6) Oxycodone/Acetaminophen (Acetaminophen/Oxycodone 325-5 Mg Tab) 2 tab PO Q4H PRN PRN Reason: Pain (moderate 4-6) Promethazine HCl (Promethazine 25 Mg Tab) 25 mg PO Q6H PRN PRN Reason: nausea, able to take PO Sodium Chloride (Sodium Chloride 0.9% 10 Ml Syringe) 10 ml FLUSH ASDIRECTED PRN PRN Reason: Keep Vein Open - Exam General: Reports: Alert, Oriented Lungs: Reports: Clear to Auscultation, Normal Respiratory Effort Cardiovascular: Reports: Regular Rate, Regular Rhythm GI/Abdominal Exam: Normal Bowel Sounds, Soft, Non-Tender, No Distention, No Mass (Female) Exam: Deferred Rectal (Female) Exam: Deferred Back Exam: Reports: Normal Inspection, Full Range of Motion Extremities: Normal Inspection, Normal Range of Motion, Non-Tender, No Pedal Edema, Normal Capillary Refill Skin: Reports: Warm, Dry, Intact Neurological: Reports: No New Focal Deficit Psy/Mental Status: Reports: Alert, Normal Affect, Normal Mood
== END 2021-02-02 10:35 | disposition home or self-care (01) ==
LOC: VM.ED 16:40 → VM.MS 18:29 → UNDODISOB 02-01 18:35
PROVIDERS: ADMIT Nurse Practitioner Family; ATTEND Nurse Practitioner Family
DX: N12 Tubulo-interstitial nephritis, not specified as acute or chronic (principal); E11.9 Type 2 diabetes mellitus without complications; Z79.84 Long term (current) use of oral hypoglycemic drugs; Z20.822 Contact with and (suspected) exposure to COVID-19; Z79.899 Other long term (current) drug therapy; Z79.82 Long term (current) use of aspirin
CPT/HCPCS: 36415; 80048; 80053; 82947; 85025; 86140; 96365; 96366; 96374; 96375; 96376; 99217; 99220; 99225; 99284-25; A9270-GY; G0378; J1815-GY; J1885; J2185; J2405; J7030; U0002

== ENCOUNTER 2021-05-13 21:35 | Inpatient (IN) | payer MEDICARE, BC ==
[2021-05-13] MEDS ORDERED: Sodium Chloride 0.9% 10 ML Syringe FLUSH PRN (22:06)
[2021-05-13] MEDS ORDERED: Ondansetron 4 MG/2 ML SDV IV ONE (22:06)
[2021-05-13] MEDS ORDERED: Lactated Ringers 1,000 ML IV ONE ×2 (22:06→22:50)
--- NOTE | 2021-05-13 22:16 | EDM.PDOC ---
ED HPI GENERAL MEDICAL PROBLEM - General Stated Complaint: NOT FEELING WELL Time Seen by Provider: 05/13/21 22:01 Source of Information: Reports: Patient History Limitations: Reports: No Limitations - History of Present Illness INITIAL COMMENTS - FREE TEXT/NARRATIVE: Patient comes emergency department today from home with concerns of not feeling well for about 7 days. The patient is a very poor historian at best. She relates that she has a history of diabetes she believes. She denies any other history. She is unsure if she has had any surgeries in her abdomen in the past but does tell me that she has had a hysterectomy. She has had some changes in her diabetic medications recently. Her blood sugars last couple of days have been in the 300s and today at home it read high. She does have a history of asymptomatic pyelonephritis as well that she has been hospitalized for. She has had nausea and vomiting for the past 7 days although today it was much better and she has been able to drink fluids today. Today was a day when she had a high reading on her glucometer. She has had no chest pain or shortness of breath or difficulty breathing. No cough or congestion. No weakness dizziness lightheadedness. No syncope. She has no pain in her abdomen other than when she has vomiting. She has had no hematuria dysuria urinary frequency. No black or tarry stools. No flank pain. - Related Data Allergies Allergy/AdvReac Type Severity Reaction Status Date / Time No Known Allergies Allergy Verified 05/13/21 23:46 Home Meds: Home Meds Aspirin 81 mg PO DAILY 01/31/21 [History] Calcium Carbonate/Vitamin D3 [Caltrate 600 + D Soft Chew Tab] 1 each PO BIDMEALS 01/31/21 [History] Losartan [Cozaar] 100 mg PO DAILY 01/31/21 [History] Lovastatin 20 mg PO BEDTIME 01/31/21 [History] Metoprolol Succinate [Toprol XL 100mg] 100 mg PO DAILY 01/31/21 [History] Multivitamin with Minerals [Multiple Vitamin] 1 tab PO DAILY 01/31/21 [History] hydroCHLOROthiazide [Hydrochlorothiazide] 25 mg PO DAILY 01/31/21 [History] metFORMIN [Glucophage XR] 2,000 mg PO DAILY 01/31/21 [History] Ondansetron [Zofran ODT] 4 mg PO Q8H PRN 05/13/21 [History] Semaglutide [Rybelsus] 14 mg PO DAILY 05/13/21 [History] glipiZIDE [Glipizide ER] 10 mg PO DAILY 05/13/21 [History] Past Medical History Cardiovascular History: Reports: High Cholesterol, Hypertension Other Gastrointestinal History: rectocele Genitourinary History: Reports: Chronic Renal Insuffiency, UTI, Recurrent Other Genitourinary History: cystocele Endocrine/Metabolic History: Reports: Diabetes, Type II Social & Family History - Caffeine Use Caffeine Use: Reports: Soda ED ROS GENERAL - Review of Systems Review Of Systems: Comprehensive ROS is negative, except as noted in HPI. ED EXAM, GI/ABD - Physical Exam Exam: See Below Text/Narrative:: She is alert appropriate does not appear to be confused although she is really struggling to answer even simple questions. She has a fine tremor noted at rest. Exam Limited By: No Limitations General Appearance: Alert, WD/WN, No Apparent Distress Eyes: Bilateral: EOMI Ears: Normal External Exam Nose: Normal Inspection Throat/Mouth: Normal Inspection Head: Atraumatic, Normocephalic Neck: Normal Inspection, Supple, Non-Tender, Full Range of Motion Respiratory/Chest: No Respiratory Distress, Lungs Clear, Normal Breath Sounds, No Accessory Muscle Use, Chest Non-Tender Cardiovascular: Normal Peripheral Pulses, Regular Rate, Rhythm GI/Abdominal Exam: Normal Bowel Sounds, Soft, Non-Tender (Female) Exam: Deferred Rectal (Female) Exam: Deferred Back Exam: Normal Inspection, Full Range of Motion. No: CVA Tenderness (L), CVA Tenderness (R) Extremities: Normal Inspection, Normal Range of Motion, Non-Tender, No Pedal Edema, Normal Capillary Refill Neurological: Alert, Oriented, CN II-XII Intact, Normal Cognition, No Motor/Sensory Deficits Psychiatric: Flat Affect Skin Exam: Intact, Normal Color, Cool, Diaphoretic (minimally) Lymphatic: No Adenopathy Course - Vital Signs Last Recorded V/S: Last Vital Signs Temp 97.9 F 05/14/21 05:42 Pulse 95 05/14/21 05:42 Resp 16 05/14/21 05:42 BP 144/57 H 05/14/21 05:42 Pulse Ox 99 05/14/21 05:42 - Orders/Labs/Meds Orders: Active Orders 24 hr Category Date Time Status CULTURE BLOOD [BC] Stat Lab 05/13/21 22:08 Received CULTURE BLOOD [BC] Stat Lab 05/13/21 22:15 Received CULTURE URINE [RM] Stat Lab 05/13/21 22:58 Received Sodium Chloride 0.9% [Saline Flush] Med 05/13/21 22:06 Active 10 ml FLUSH ASDIRECTED PRN Blood Culture x2 Reflex Set [OM.PC] Stat Ot 05/13/21 22:09 Ordered Peripheral IV Insertion Adult [OM.PC] Stat Ot 05/13/21 22:06 Ordered Medication Orders Acetaminophen (Acetaminophen 325 Mg Tab) 650 mg PO Q4H PRN PRN Reason: Pain (Mild 1-3)/fever Aspirin (Aspirin 81 Mg Tab.Chew) 81 mg PO DAILY [facility] Calcium Carbonate (Calcium Carbonate/Vitamin D3 1250 Mg-5 Mcg Tab) 1 tab PO BIDMEALS [facility] Ceftriaxone Sodium (Ceftriaxone 2 Gm Vial) 2 gm IVPUSH DAILY [facility] Dextrose/Water (50% Dextrose In Water 50 Ml Syringe) 50 ml IVPUSH ASDIRECTED PRN PRN Reason: Hypoglycemia Enoxaparin Sodium (Enoxaparin 30 Mg/0.3 Ml Syringe) 30 mg SUBCUT DAILY@2000 [facility] Glucagon (Glucagon,Human Recombinant 1 Mg Vial) 1 mg IM ASDIRECTED PRN PRN Reason: Hypoglycemia Sodium Chloride (Normal Saline) 1,000 mls @ 200 mls/hr IV ASDIRECTED [facility] Last Admin: 05/14/21 05:38 Dose: 200 mls/hr Documented by: YOSI Sodium Chloride (Normal Saline) 1,000 mls @ 500 mls/hr IV ASDIRECTED [facility] Last Admin: 05/14/21 00:35 Dose: 500 mls/hr Documented by: AUGUSTINA Insulin Human Lispro (Insulin Lispro 100 Units/Ml 3 Ml Vial) 0 unit SUBCUT TIDMEALS [facility]; Protocol Metoprolol Succinate (Metoprolol Succinate 50 Mg Tab.Er) 100 mg PO DAILY [facility] Ondansetron HCl (Ondansetron 4 Mg/2 Ml Sdv) 4 mg IV Q6H PRN PRN Reason: Nausea/Vomiting Sodium Chloride (Sodium Chloride 0.9% 10 Ml Syringe) 10 ml FLUSH ASDIRECTED PRN PRN Reason: Keep Vein Open Labs: Laboratory Tests 05/13/21 05/13/21 05/13/21 Range/Units 22:08 22:08 22:08 WBC 20.1 H* (4.0-10.0) x10^3/uL RBC 4.39 (4.00-5.50) x10^6/uL Hgb 13.0 (12.0-16.0) g/dL Hct 36.7 (33.0-47.0) % MCV 83.6 (78.0-93.0) fL MCH 29.6 (26.0-32.0) pg MCHC 35.4 (32.0-36.0) g/dL RDW Coeff of Kris 12.2 (10.0-15.0) % Plt Count 701 H (130-400) x10^3/uL Add Manual Diff Yes Neutrophils % (Manual) 88 H (50-80) % Band Neutrophils % 1 (0-6) % Lymphocytes % (Manual) 4 L (25-50) % Monocytes % (Manual) 6 (2-11) % Metamyelocytes % 1 H (0) % Immature Gran # 0.20 H (0.00-0.07) X10^3/Ul Absolute Neutrophils 17.9 H (1.8-7.7) x10^3/uL Lymphocytes # (Manual) 0.8 L (1.0-4.8) x10^3/uL Monocytes # (Manual) 1.2 H (0.0-0.8) x10^3/uL Platelet Estimate Increased H POC VBG pH (7.33-7.43) pH POC VBG pCO2 (41-51) mmHg POC VBG pO2 mmHg POC VBG HCO3 (22-29) mmol/L POC Venous O2 Sat % VBG Base Excess (-(2)-3) mmol/L POC FiO2 Sodium 128 L* D (136-145) mmol/L Potassium 4.7 (3.5-5.1) mmol/L Chloride 88 L D (98-107) mmol/L Carbon Dioxide 18 L (21-32) mmol/L POC Venous Total CO2 (23-30) mmol/L Anion Gap 26.7 H (5-15) mmol/L BUN 120 H* D (7-18) mg/dL Creatinine 8.6 H* D (0.55-1.02) mg/dL Est Cr Clr Drug Dosing TNP Estimated GFR (MDRD) 5 Glucose 582 H* (70-99) mg/dL Lactic Acid 5.3 H* (0.4-2.0) mmol/L Calcium 8.6 (8.5-10.1) mg/dL Corrected Calcium 9.4 (8.5-10.1) mg/dL Magnesium (1.8-2.4) mg/dL Total Bilirubin 0.5 (0.2-1.0) mg/dL AST 11 L (15-37) U/L ALT 14 (14-59) U/L Alkaline Phosphatase 74 (46-116) U/L C-Reactive Protein 12.9 H (<=0.9) mg/dL Total Protein 7.5 (6.4-8.2) g/dL Albumin 3.0 L (3.4-5.0) g/dL Globulin 4.5 Albumin/Globulin Ratio 0.67 Lipase 8569 H (73-393) U/L Procalcitonin (0.1-0.50) ng/mL 05/13/21 05/13/21 05/13/21 Range/Units 22:08 22:08 22:22 WBC (4.0-10.0) x10^3/uL RBC (4.00-5.50) x10^6/uL Hgb (12.0-16.0) g/dL Hct (33.0-47.0) % MCV (78.0-93.0) fL MCH (26.0-32.0) pg MCHC (32.0-36.0) g/dL RDW Coeff of Kris (10.0-15.0) % Plt Count (130-400) x10^3/uL Add Manual Diff Neutrophils % (Manual) (50-80) % Band Neutrophils % (0-6) % Lymphocytes % (Manual) (25-50) % Monocytes % (Manual) (2-11) % Metamyelocytes % (0) % Immature Gran # (0.00-0.07) X10^3/Ul Absolute Neutrophils (1.8-7.7) x10^3/uL Lymphocytes # (Manual) (1.0-4.8) x10^3/uL Monocytes # (Manual) (0.0-0.8) x10^3/uL Platelet Estimate POC VBG pH 7.39 (7.33-7.43) pH POC VBG pCO2 26 L (41-51) mmHg POC VBG pO2 59 mmHg POC VBG HCO3 16 L (22-29) mmol/L POC Venous O2 Sat 91 % VBG Base Excess -9 L (-(2)-3) mmol/L POC FiO2 21 Sodium (136-145) mmol/L Potassium (3.5-5.1) mmol/L Chloride (98-107) mmol/L Carbon Dioxide (21-32) mmol/L POC Venous Total CO2 17 L (23-30) mmol/L Anion Gap (5-15) mmol/L BUN (7-18) mg/dL Creatinine (0.55-1.02) mg/dL Est Cr Clr Drug Dosing Estimated GFR (MDRD) Glucose (70-99) mg/dL Lactic Acid (0.4-2.0) mmol/L Calcium (8.5-10.1) mg/dL Corrected Calcium (8.5-10.1) mg/dL Magnesium 2.1 (1.8-2.4) mg/dL Total Bilirubin (0.2-1.0) mg/dL AST (15-37) U/L ALT (14-59) U/L Alkaline Phosphatase (46-116) U/L C-Reactive Protein (<=0.9) mg/dL Total Protein (6.4-8.2) g/dL Albumin (3.4-5.0) g/dL Globulin Albumin/Globulin Ratio Lipase (73-393) U/L Procalcitonin 1.48 H (0.1-0.50) ng/mL Meds: Medications Generic Name Dose Route Start Last Admin Trade Name Freq PRN Reason Stop Dose Admin Acetaminophen 650 mg 05/13/21 23:33 Acetaminophen 325 Mg Tab PO Q4H PRN Pain (Mild 1-3)/fever Aspirin 81 mg 05/14/21 08:00 Aspirin 81 Mg Tab.Chew PO DAILY [facility] Calcium Carbonate 1 tab 05/14/21 08:00 Calcium Carbonate/Vitamin D3 1250 Mg-5 Mcg Tab PO BIDMEALS [facility] Ceftriaxone Sodium 2 gm 05/14/21 22:00 Ceftriaxone 2 Gm Vial IVPUSH DAILY [facility] Dextrose/Water 50 ml 05/13/21 23:45 50% Dextrose In Water 50 Ml Syringe IVPUSH ASDIRECTED PRN Hypoglycemia Enoxaparin Sodium 30 mg 05/14/21 20:00 Enoxaparin 30 Mg/0.3 Ml Syringe SUBCUT DAILY@2000 [facility] Glucagon 1 mg 05/13/21 23:45 Glucagon,Human Recombinant 1 Mg Vial IM ASDIRECTED PRN Hypoglycemia Sodium Chloride 1,000 mls @ 200 mls/hr 05/13/21 23:45 05/14/21 05:38 Normal Saline IV 200 mls/hr ASDIRECTED JO Administration Sodium Chloride 1,000 mls @ 500 mls/hr 05/14/21 00:45 05/14/21 00:35 Normal Saline IV 500 mls/hr ASDIRECTED JO Administration Insulin Human Lispro 0 unit 05/14/21 08:00 Insulin Lispro 100 Units/Ml 3 Ml Vial SUBCUT TIDMEALS [facility] Protocol Metoprolol Succinate 100 mg 05/14/21 08:00 Metoprolol Succinate 50 Mg Tab.Er PO DAILY [facility] Ondansetron HCl 4 mg 05/13/21 23:33 Ondansetron 4 Mg/2 Ml Sdv IV Q6H PRN Nausea/Vomiting Sodium Chloride 10 ml 05/13/21 22:06 Sodium Chloride 0.9% 10 Ml Syringe FLUSH ASDIRECTED PRN Keep Vein Open Discontinued Medications Generic Name Dose Route Start Last Admin Trade Name Freq PRN Reason Stop Dose Admin Ceftriaxone Sodium 2 gm 05/13/21 22:28 05/13/21 22:38 Ceftriaxone 2 Gm Vial IVPUSH 05/13/21 22:29 2 gm STAT ONE Administration Hydrochlorothiazide 25 mg 05/14/21 08:00 Hydrochlorothiazide 25 Mg Tab PO DAILY [facility] Lactated Ringer's 1,000 mls @ 999 mls/hr 05/13/21 22:06 05/13/21 22:20 Ringers, Lactated IV 05/13/21 23:06 999 mls/hr ONETIME ONE Administration Lactated Ringer's 1,000 mls @ 999 mls/hr 05/13/21 22:50 05/13/21 23:10 Ringers, Lactated IV 05/13/21 23:50 999 mls/hr ONETIME ONE Administration Sodium Chloride 1,000 mls @ 500 mls/hr 05/13/21 23:15 Normal Saline IV ASDIRECTED [facility] Insulin Human Regular 5 unit 05/13/21 23:12 05/13/21 23:21 Insulin Regular, Human 100 Units/Ml 3 Ml Vial SUBCUT 05/13/21 23:13 5 units NOW STA Administration Ondansetron HCl 4 mg 05/13/21 22:06 05/13/21 22:25 Ondansetron 4 Mg/2 Ml Sdv IV 05/13/21 22:07 4 mg ONETIME ONE Administration - Re-Assessments/Exams Free Text/Narrative Re-Assessment/Exam: 05/13/21 22:20 Revealing this patient's history and [facility] she has a history of hypertension hyperlipidemia type 2 diabetes CKD stage III IV was established labs are drawn. Zofran 4 mg IV push. Lactated Ringer's 1 L wide open. Her white blood cell count returned approximately 21. 2 g of Rocephin IV push for concerns of bacteremia. Venous blood gases with pH of 7.39, PCO2 26, bicarb 16 base excess -9. She does not show any signs of acidosis at this time although she has a metabolic acidosis that is respiratory compensated as well. CMP with a sodium of 128 although her blood sugar is quite high which gives us a corrected sodium of 136, her potassium is normal at 4.7, chloride 88, CO2 is 18, anion gap 26.7, BUN 120, creatinine 8.6 which is up from baseline of 1.5 this most likely prerenal and sepsis. GFR is five, glucose 582. Her lactic acid is 5.3. Second liter of LR wide open for a total of 30 mils per kilogram for sepsis. Third liter of normal saline at 500 mils an hour for 2 hours. Her CRP is elevated at 12.9 Procalcitonin 1.48. Urinalysis with a glucose of greater than 1000 protein moderate leukocyte esterase greater than 100 WBCs. Urine culture is pending. Do not see any signs of diabetic ketoacidosis at this time. We will give her 5 units of regular insulin subcutaneously. Her vitals stayed stable in the emergency department. There is currently no beds in the [facility] to transfer this patient. We will keep her here under inpatient status. I will manage this patient overnight and transfer care to the primary care provider team of [facility] to Dr. Friedman in the morning. I discussed my grave concerns of the severe sepsis without septic shock as well as hyperglycemia without any evidence of hyperkalemia at this time. This patient is quite ill. I discussed with her at length that the next time she has any symptoms like this she should not wait as long. We will admit her into the hospital here close monitoring for aggressive hydration treatment of her sepsis discontinue lower oral antihyperglycemic's and start her on subcutaneous insulin dosing to control this during her times of sepsis. She is comfortable with this plan and her questions are answered. Departure - Departure Time of Disposition: 22:52 Disposition: Admitted As Inpatient 65 Clinical Impression: TOMASA (acute kidney injury), Hyponatremia Sepsis Qualifiers: Sepsis type: sepsis due to unspecified organism Sepsis acute organ dysfunction status: with acute organ dysfunction Severe sepsis acute organ dysfunction type: acute renal failure Acute renal failure type: unspecified Severe sepsis shock status: without septic shock Qualified Code(s): A41.9 - Sepsis, unspecified organism Hyperglycemia due to type 2 diabetes mellitus Qualifiers: Diabetes mellitus manager terminal insulin use: without assisted use Qualified Code(s): E11.65 - Type 2 diabetes mellitus with hyperglycemia Pancreatitis, acute Qualifiers: Pancreatitis type: unspecified pancreatitis type Acute pancreatitis complication: unspecified Qualified Code(s): K85.90 - Acute pancreatitis without necrosis or infection, unspecified - Discharge Information Sepsis Event Note (ED) - Focused Exam Vital Signs: Vital Signs Temp Pulse Resp BP Pulse Ox 05/13/21 21:35 98 F 112 H 16 116/65 98 - Problem List & Annotations (1) Pyelonephritis SNOMED Code(s): 08850056 Code(s): N12 - TUBULO-INTERSTITIAL NEPHRITIS, NOT SPCF ACUTE OR CHRONIC Status: Acute Current Visit: No Annotation/Comment:: She has asymptomatic pyelonephritis which she has had multiple times in the past. She is septic from her pyelonephritis. She was given 2 g of Rocephin for bacteremia in the emergency department. Blood and urine cultures are pending. Upon discharge follow-up with urology would be considered to see if she has some type of underlying pathology causing her recurrent asymptomatic pyelonephritis. (2) Sepsis SNOMED Code(s): 56884859 Code(s): A41.9 - SEPSIS, UNSPECIFIED ORGANISM Status: Acute Current Visit: Yes Annotation/Comment:: Her sepsis is a pyelonephritis. She has sepsis without septic shock. She has a lactic acid of 5.8 which we will trend throughout the night. She has an elevated procalcitonin at 1.48. She was given 2 g of Rocephin for bacteremia in the emergency department. We will continue this on the inpatient unit. 1 g twice daily. We will trend her lactic until it is back to normal. Daily lactic as well as procalcitonin. Blood cultures are pending. Urine culture pending. Qualifiers: Sepsis type: sepsis due to unspecified organism Sepsis acute organ dysfunction status: with acute organ dysfunction Severe sepsis acute organ dysfunction type: acute renal failure Acute renal failure type: unspecified Severe sepsis shock status: without septic shock Qualified Code(s): A41.9 - Sepsis, unspecified organism; R65.20 - Severe sepsis without septic shock; N17.9 - Acute kidney failure, unspecified (3) TOMASA (acute kidney injury) SNOMED Code(s): 18322399, 85535929 Code(s): N17.9 - ACUTE KIDNEY FAILURE, UNSPECIFIED Status: Acute Current Visit: Yes Annotation/Comment:: Patient has a history of chronic renal failure stage III. With a creatinine of 1.52, BUN 20 with a GFR 34.BUN today is 120 with a creatinine of 8.6. She has a normal potassium at 4.7. This is most likely acute on chronic renal failure in the presence of sepsis severe without septic shock. This is most likely acute kidney injury from prerenal dehydration as well as sepsis. We will hydrate her aggressively throughout the night. She received 2 L bolus in the emergency department another liter over 2 hours and we will hydrate her at 200 mils an hour during the night. Repeat labs in the morning. Closely monitor I/O. I will also hold her ARB with the kidney failure. (4) Hyperglycemia due to type 2 diabetes mellitus SNOMED Code(s): 082188327779071, 862145721518981 Code(s): E11.65 - TYPE 2 DIABETES MELLITUS WITH HYPERGLYCEMIA Status: Acute Current Visit: Yes Annotation/Comment:: She has had some recent changes in her diabetic regimen. She is quite hyperglycemic with a blood sugar of 582. She does not show any evidence of diabetic ketoacidosis at this time as she is metabolically and respiratorily compensated. She has a normal pH. Beta hydro xybutyrate pending. We will hold her oral medications at this time and start her on low insulin sliding scale with blood sugar 4 times daily. Qualifiers: Diabetes mellitus assisted insulin use: without assisted use Qualified Code(s): E11.65 - Type 2 diabetes mellitus with hyperglycemia (5) Hyponatremia SNOMED Code(s): 48525298 Code(s): E87.1 - HYPO-OSMOLALITY AND HYPONATREMIA Status: Acute Current Visit: Yes Annotation/Comment:: The patient sodium is 128 although she is quite hyperglycemic with a glucose of 582. Her corrected sodium is 136. There is no presence of DKA at this time she is metabolically and respiratorily compensated. We will repeat labs in the morning. Normal saline infusion over the night. (6) Hypertension SNOMED Code(s): 69548856 Code(s): I10 - ESSENTIAL (PRIMARY) HYPERTENSION Status: Acute Current Visit: Yes Annotation/Comment:: BP 145/65 in the ED. WIll hold her ARB and HCTZ at this time with the kidney injury as well as the sepsis. Continue her metoprolol. (7) Hyperlipidemia SNOMED Code(s): 03074514 Code(s): E78.5 - HYPERLIPIDEMIA, UNSPECIFIED Status: Acute Current Visit: Yes Annotation/Comment:: On Lovastatin at home. Will hold in the presence of TOMASA. (8) Pancreatitis SNOMED Code(s): 78370984 Code(s): K85.90 - ACUTE PANCREATITIS WITHOUT NECROSIS OR INFECTION, UNSP Status: Acute Current Visit: Yes Annotation/Comment:: The patient also has a lipase of 8569. She recently started on Rybelsus which could be the cause of her pancreatitis. She could also have pancreatitis from her severe dehydration and hyperglycemia. She is already being hydrated with IV hydration. She is not complaining of abdominal pain. This is most likely multifactorial in nature due to her recent illness her diabetic medications poorly controlled hemoglobin A1c. Her ransom score is 13% for pancreatic mortality. CT abdomen pelvis without contrast as we are in severe acute kidney injury shows moderate tate creatitis without any discrete fluid collections. Inflammatory changes in the pancreatic bed. No mention of pseudocyst. As she is tolerating oral fluids as well as food and she is not having severe abdominal pain or nausea and vomiting I think it is appropriate to start feeding her at this time. We will start her on low-dose insulin sliding scale. Qualifiers: Chronicity: acute Pancreatitis type: unspecified pancreatitis type - Problem List Review Problem List Initiated/Reviewed/Updated: Yes - My Orders Last 24 Hours: My Active Orders 05/13/21 22:06 Sodium Chloride 0.9% [Saline Flush] 10 ml FLUSH ASDIRECTED PRN Peripheral IV Insertion Adult [OM.PC] Stat 05/13/21 22:08 CULTURE BLOOD [BC] Stat 05/13/21 22:09 Blood Culture x2 Reflex Set [OM.PC] Stat 05/13/21 22:15 CULTURE BLOOD [BC] Stat 05/13/21 22:58 CULTURE URINE [RM] Stat - Assessment/Plan Admission H&P: Please use this note as an admission H&P Last 24 Hours: My Active Orders 05/13/21 22:06 Sodium Chloride 0.9% [Saline Flush] 10 ml FLUSH ASDIRECTED PRN Peripheral IV Insertion Adult [OM.PC] Stat 05/13/21 22:08 CULTURE BLOOD [BC] Stat 05/13/21 22:09 Blood Culture x2 Reflex Set [OM.PC] Stat 05/13/21 22:15 CULTURE BLOOD [BC] Stat 05/13/21 22:58 CULTURE URINE [RM] Stat Assessment:: Assessment/plan. The patient will be admitted into the inpatient status here due to the concerns that are quite severe as listed above. There are no hospital beds and anywhere in the state of [place]. She will need at minimum two nights of inpatient management due to her severe sepsis without septic shock and acute injury to her kidney upon chronic renal failure. She also has hyperglycemia without any evidence of DKA this is most likely causative from her infection. Be admitted under the inpatient care under myself tonight and wound care will be transferred to primary care provider at [facility] in the morning Dr Friedman or Dr. Katiana Yoon VTE: Lovenox 30mg Subcut high risk geneva score. Renally dosed. Sepsis: This patient clearly has severe sepsis without septic shock. Her lactic acid is 5.8. We will trended every 4 hours during the night. Procalcitonin was elevated as well. Blood cultures urine cultures pending. CODE STATUS: Full code. There is a risk for worsening of this patient while she is in the hospital to deteriorate to severe septic shock. We will monitor her closely with vital signs every 2 hours. If she does start to deteriorate and show signs of septic shock we will start Levophed to keep her mean arterial pressure above 65. Again there are no hospital beds in the [facility] [place] at this time at the tertiary centers. Plan: Please use this note as the admission H&P.
[2021-05-13] MEDS ORDERED: cefTRIAXone 2 GM Vial IVPUSH ONE (22:28)
[2021-05-13 22:57] LABS: CHLORIDE,CL 88 mmol/L (98-107)
[2021-05-13 23:02] LABS: ANION GAP 26.7 mmol/L (5-15); SODIUM,NA 128 mmol/L (136-145)
[2021-05-13] MEDS ORDERED: Insulin Regular, Human 100 Units/ML 3 ML Vial SUBCUT STA (23:12)
[2021-05-13] MEDS ORDERED: Sodium Chloride 0.9% 1,000 ML IV SCH (23:15)
[2021-05-13] MEDS ORDERED: Acetaminophen 325 MG Tab PO PRN (23:33)
[2021-05-13] MEDS ORDERED: 50% Dextrose in Water 50 ML Syringe IVPUSH PRN (23:45)
[2021-05-13] MEDS ORDERED: Glucagon,Human Recombinant 1 MG Vial IM PRN (23:45)
[2021-05-14] MEDS ORDERED: Sodium Chloride 0.9% 1,000 ML IV SCH ×2 (00:45→15:51)
[2021-05-14 02:27] LABS: ANION GAP 20.8 mmol/L (5-15)
[2021-05-14] MEDS: Sodium Chloride 0.9% 1,000 ML IV SCH ×2 (05:38→10:47)
[2021-05-14 07:26] LABS: ANION GAP 16.4 mmol/L (5-15)
--- NOTE | 2021-05-14 07:49 | CT ---
[id number] CT/CT Abdomen Pelvis WO IV Exam: CT Abdomen Pelvis WO IV Clinical Data: ABDOMINAL PAIN. PANCREATITIS COMPARISON: NO PREVIOUS SIMILAR EXAM IS AVAILABLE FINDINGS: There is evidence of pancreatitis IV contrast was not used There are inflammatory changes in the pancreatic bed There is no free air or free fluid There are no discrete fluid collections The gallbladder is slightly distended The liver and spleen show no focal abnormalities There is question of minimal cirrhosis. There is no hydronephrosis The pelvis shows no mass or adenopathy The uterus has been removed The appendix is normal IMPRESSION: MODERATE PANCREATITIS Francis Lange MD 05/14/21 [id number] Thank you for allowing us to participate in the care of your patient.
[2021-05-14] MEDS ORDERED: Hydrochlorothiazide 25 MG Tab PO SCH (08:00)
[2021-05-14] MEDS: Aspirin 81 MG Tab.Chew PO SCH (08:28)
[2021-05-14] MEDS: Calcium Carbonate/Vitamin D3 1250 MG-5 MCG Tab PO SCH ×2 (08:28→18:29)
[2021-05-14] MEDS: Metoprolol Succinate 50 MG Tab.ER PO SCH (08:28)
[2021-05-14] MEDS: Insulin Lispro 100 Units/ML 3 ML Vial SUBCUT SCH ×3 (08:36→18:30)
--- NOTE | 2021-05-14 10:30 | PCM.PN ---
- General Info Date of Service: 05/14/21 Subjective Update: 65 yo female hospital day #2 admitted with pyelonephritis, TOMASA, pancreatitis, and severe dehydration after presenting to the ER for evaluation of 1 week of nausea and vomiting. Patient's also at bedside this morning. She denies any abdominal pain. She does not have much of an appetite but does not feel nauseous. No vomiting since admission. No fever or chills. ROS otherwise negative. - Review of Systems General: Reports: No Symptoms HEENT: Reports: No Symptoms Pulmonary: Reports: No Symptoms Cardiovascular: Reports: No Symptoms Gastrointestinal: Reports: No Symptoms Genitourinary: Reports: No Symptoms Musculoskeletal: Reports: No Symptoms Skin: Reports: No Symptoms Neurological: Reports: No Symptoms - Patient Data Vitals - Most Recent: Last Vital Signs Temp 36.6 C 05/14/21 05:42 Pulse 96 05/14/21 08:28 Resp 16 05/14/21 05:42 BP 143/58 H 05/14/21 08:28 Pulse Ox 99 05/14/21 05:42 Weight - Most Recent: 66.224 kg I&O - Last 24 Hours: Intake & Output 05/13/21 05/14/21 05/14/21 22:59 06:59 14:59 Intake Total 120 Balance 120 Lab Results Last 24 Hours: Laboratory Results - last 24 hr 05/13/21 05/13/21 05/13/21 Range/Units 22:08 22:08 22:08 WBC 20.1 H* (4.0-10.0) x10^3/uL RBC 4.39 (4.00-5.50) x10^6/uL Hgb 13.0 (12.0-16.0) g/dL Hct 36.7 (33.0-47.0) % MCV 83.6 (78.0-93.0) fL MCH 29.6 (26.0-32.0) pg MCHC 35.4 (32.0-36.0) g/dL RDW Coeff of Kris 12.2 (10.0-15.0) % Plt Count 701 H (130-400) x10^3/uL Immature Gran % (Auto) (0.00-0.43) % Neut % (Auto) (50.0-80.0) % Lymph % (Auto) (25.0-50.0) % [place] % (Auto) (2.0-11.0) % Eos % (Auto) (0.0-4.0) % Baso % (Auto) (0.2-1.2) % Neut # (Auto) (1.8-7.7) x10^3/uL Lymph # (Auto) (1.0-4.8) x10^3/uL [place] # (Auto) (0.0-0.8) x10^3/uL Eos # (Auto) (0.0-0.5) x10^3/uL Baso # (Auto) (0.0-0.2) x10^3/uL Immature Gran # (Auto) (0.00-0.07) x10^3/uL Add Manual Diff Yes Neutrophils % (Manual) 88 H (50-80) % Band Neutrophils % 1 (0-6) % Lymphocytes % (Manual) 4 L (25-50) % Monocytes % (Manual) 6 (2-11) % Metamyelocytes % 1 H (0) % Immature Gran # 0.20 H (0.00-0.07) X10^3/Ul Absolute Neutrophils 17.9 H (1.8-7.7) x10^3/uL Lymphocytes # (Manual) 0.8 L (1.0-4.8) x10^3/uL Monocytes # (Manual) 1.2 H (0.0-0.8) x10^3/uL Platelet Estimate Increased H POC VBG pH (7.33-7.43) pH POC VBG pCO2 (41-51) mmHg POC VBG pO2 mmHg POC VBG HCO3 (22-29) mmol/L POC Venous O2 Sat % VBG Base Excess (-(2)-3) mmol/L POC FiO2 Sodium 128 L* D (136-145) mmol/L Potassium 4.7 (3.5-5.1) mmol/L Chloride 88 L D (98-107) mmol/L Carbon Dioxide 18 L (21-32) mmol/L POC Venous Total CO2 (23-30) mmol/L Anion Gap 26.7 H (5-15) mmol/L BUN 120 H* D (7-18) mg/dL Creatinine 8.6 H* D (0.55-1.02) mg/dL Est Cr Clr Drug Dosing TNP Estimated GFR (MDRD) 5 Glucose 582 H* (70-99) mg/dL POC Glucose (70-99) mg/dL Hemoglobin A1c (<5.7) % Lactic Acid 5.3 H* (0.4-2.0) mmol/L Calcium 8.6 (8.5-10.1) mg/dL Corrected Calcium 9.4 (8.5-10.1) mg/dL Magnesium (1.8-2.4) mg/dL Total Bilirubin 0.5 (0.2-1.0) mg/dL AST 11 L (15-37) U/L ALT 14 (14-59) U/L Alkaline Phosphatase 74 (46-116) U/L Lactate Dehydrogenase (81-234) U/L C-Reactive Protein 12.9 H (<=0.9) mg/dL Total Protein 7.5 (6.4-8.2) g/dL Albumin 3.0 L (3.4-5.0) g/dL Globulin 4.5 Albumin/Globulin Ratio 0.67 Lipase 8569 H (73-393) U/L Procalcitonin (0.1-0.50) ng/mL Urine Color (YELLOW) Urine Appearance (CLEAR) Urine pH (5.0-8.0) Ur Specific [place] Urine Protein (NEGATIVE) mg/dL Urine Glucose (UA) (NEGATIVE) mg/dL Urine Ketones (NEGATIVE) mg/dL Urine Occult Blood (NEGATIVE) Urine Nitrite (NEGATIVE) Urine Bilirubin (NEGATIVE) Urine Urobilinogen (0.2) EU/dL Ur Leukocyte Esterase (NEGATIVE) Urine RBC (NOT SEEN) /HPF Urine WBC (NOT SEEN) /HPF Ur Squamous Epith Cells (NOT SEEN) /HPF Amorphous Sediment Urine Bacteria (NOT SEEN) /HPF Urine Mucus (NOT SEEN) /LPF SARS CoV-2 RNA Rapid BERANDINE (NEGATIVE) 05/13/21 05/13/21 05/13/21 Range/Units 22:08 22:08 22:22 WBC (4.0-10.0) x10^3/uL RBC (4.00-5.50) x10^6/uL Hgb (12.0-16.0) g/dL Hct (33.0-47.0) % MCV (78.0-93.0) fL MCH (26.0-32.0) pg MCHC (32.0-36.0) g/dL RDW Coeff of Kris (10.0-15.0) % Plt Count (130-400) x10^3/uL Immature Gran % (Auto) (0.00-0.43) % Neut % (Auto) (50.0-80.0) % Lymph % (Auto) (25.0-50.0) % [place] % (Auto) (2.0-11.0) % Eos % (Auto) (0.0-4.0) % Baso % (Auto) (0.2-1.2) % Neut # (Auto) (1.8-7.7) x10^3/uL Lymph # (Auto) (1.0-4.8) x10^3/uL [place] # (Auto) (0.0-0.8) x10^3/uL Eos # (Auto) (0.0-0.5) x10^3/uL Baso # (Auto) (0.0-0.2) x10^3/uL Immature Gran # (Auto) (0.00-0.07) x10^3/uL Add Manual Diff Neutrophils % (Manual) (50-80) % Band Neutrophils % (0-6) % Lymphocytes % (Manual) (25-50) % Monocytes % (Manual) (2-11) % Metamyelocytes % (0) % Immature Gran # (0.00-0.07) X10^3/Ul Absolute Neutrophils (1.8-7.7) x10^3/uL Lymphocytes # (Manual) (1.0-4.8) x10^3/uL Monocytes # (Manual) (0.0-0.8) x10^3/uL Platelet Estimate POC VBG pH 7.39 (7.33-7.43) pH POC VBG pCO2 26 L (41-51) mmHg POC VBG pO2 59 mmHg POC VBG HCO3 16 L (22-29) mmol/L POC Venous O2 Sat 91 % VBG Base Excess -9 L (-(2)-3) mmol/L POC FiO2 21 Sodium (136-145) mmol/L Potassium (3.5-5.1) mmol/L Chloride (98-107) mmol/L Carbon Dioxide (21-32) mmol/L POC Venous Total CO2 17 L (23-30) mmol/L Anion Gap (5-15) mmol/L BUN (7-18) mg/dL Creatinine (0.55-1.02) mg/dL Est Cr Clr Drug Dosing Estimated GFR (MDRD) Glucose (70-99) mg/dL POC Glucose (70-99) mg/dL Hemoglobin A1c (<5.7) % Lactic Acid (0.4-2.0) mmol/L Calcium (8.5-10.1) mg/dL Corrected Calcium (8.5-10.1) mg/dL Magnesium 2.1 (1.8-2.4) mg/dL Total Bilirubin (0.2-1.0) mg/dL AST (15-37) U/L ALT (14-59) U/L Alkaline Phosphatase (46-116) U/L Lactate Dehydrogenase (81-234) U/L C-Reactive Protein (<=0.9) mg/dL Total Protein (6.4-8.2) g/dL Albumin (3.4-5.0) g/dL Globulin Albumin/Globulin Ratio Lipase (73-393) U/L Procalcitonin 1.48 H (0.1-0.50) ng/mL Urine Color (YELLOW) Urine Appearance (CLEAR) Urine pH (5.0-8.0) Ur Specific [place] Urine Protein (NEGATIVE) mg/dL Urine Glucose (UA) (NEGATIVE) mg/dL Urine Ketones (NEGATIVE) mg/dL Urine Occult Blood (NEGATIVE) Urine Nitrite (NEGATIVE) Urine Bilirubin (NEGATIVE) Urine Urobilinogen (0.2) EU/dL Ur Leukocyte Esterase (NEGATIVE) Urine RBC (NOT SEEN) /HPF Urine WBC (NOT SEEN) /HPF Ur Squamous Epith Cells (NOT SEEN) /HPF Amorphous Sediment Urine Bacteria (NOT SEEN) /HPF Urine Mucus (NOT SEEN) /LPF SARS CoV-2 RNA Rapid BERNADINE (NEGATIVE) 05/13/21 05/13/21 05/14/21 Range/Units 22:58 23:09 00:53 WBC (4.0-10.0) x10^3/uL RBC (4.00-5.50) x10^6/uL Hgb (12.0-16.0) g/dL Hct (33.0-47.0) % MCV (78.0-93.0) fL MCH (26.0-32.0) pg MCHC (32.0-36.0) g/dL RDW Coeff of Kris (10.0-15.0) % Plt Count (130-400) x10^3/uL Immature Gran % (Auto) (0.00-0.43) % Neut % (Auto) (50.0-80.0) % Lymph % (Auto) (25.0-50.0) % [place] % (Auto) (2.0-11.0) % Eos % (Auto) (0.0-4.0) % Baso % (Auto) (0.2-1.2) % Neut # (Auto) (1.8-7.7) x10^3/uL Lymph # (Auto) (1.0-4.8) x10^3/uL [place] # (Auto) (0.0-0.8) x10^3/uL Eos # (Auto) (0.0-0.5) x10^3/uL Baso # (Auto) (0.0-0.2) x10^3/uL Immature Gran # (Auto) (0.00-0.07) x10^3/uL Add Manual Diff Neutrophils % (Manual) (50-80) % Band Neutrophils % (0-6) % Lymphocytes % (Manual) (25-50) % Monocytes % (Manual) (2-11) % Metamyelocytes % (0) % Immature Gran # (0.00-0.07) X10^3/Ul Absolute Neutrophils (1.8-7.7) x10^3/uL Lymphocytes # (Manual) (1.0-4.8) x10^3/uL Monocytes # (Manual) (0.0-0.8) x10^3/uL Platelet Estimate POC VBG pH (7.33-7.43) pH POC VBG pCO2 (41-51) mmHg POC VBG pO2 mmHg POC VBG HCO3 (22-29) mmol/L POC Venous O2 Sat % VBG Base Excess (-(2)-3) mmol/L POC FiO2 Sodium (136-145) mmol/L Potassium (3.5-5.1) mmol/L Chloride (98-107) mmol/L Carbon Dioxide (21-32) mmol/L POC Venous Total CO2 (23-30) mmol/L Anion Gap (5-15) mmol/L BUN (7-18) mg/dL Creatinine (0.55-1.02) mg/dL Est Cr Clr Drug Dosing Estimated GFR (MDRD) Glucose (70-99) mg/dL POC Glucose 454 H* (70-99) mg/dL Hemoglobin A1c (<5.7) % Lactic Acid (0.4-2.0) mmol/L Calcium (8.5-10.1) mg/dL Corrected Calcium (8.5-10.1) mg/dL Magnesium (1.8-2.4) mg/dL Total Bilirubin (0.2-1.0) mg/dL AST (15-37) U/L ALT (14-59) U/L Alkaline Phosphatase (46-116) U/L Lactate Dehydrogenase (81-234) U/L C-Reactive Protein (<=0.9) mg/dL Total Protein (6.4-8.2) g/dL Albumin (3.4-5.0) g/dL Globulin Albumin/Globulin Ratio Lipase (73-393) U/L Procalcitonin (0.1-0.50) ng/mL Urine Color Light yellow (YELLOW) Urine Appearance Cloudy H (CLEAR) Urine pH 5.0 (5.0-8.0) Ur Specific [place] 1.015 Urine Protein 100 H (NEGATIVE) mg/dL Urine Glucose (UA) >=1000 H (NEGATIVE) mg/dL Urine Ketones Trace H (NEGATIVE) mg/dL Urine Occult Blood Moderate H (NEGATIVE) Urine Nitrite Negative (NEGATIVE) Urine Bilirubin Small H (NEGATIVE) Urine Urobilinogen 0.2 (0.2) EU/dL Ur Leukocyte Esterase Moderate H (NEGATIVE) Urine RBC 20-30 H (NOT SEEN) /HPF Urine WBC >100 H (NOT SEEN) /HPF Ur Squamous Epith Cells Few H (NOT SEEN) /HPF Amorphous Sediment Occasional Urine Bacteria Occasional H (NOT SEEN) /HPF Urine Mucus Few H (NOT SEEN) /LPF SARS CoV-2 RNA Rapid BERNADINE Negative (NEGATIVE) 05/14/21 05/14/21 05/14/21 Range/Units 02:05 02:05 02:05 WBC (4.0-10.0) x10^3/uL RBC (4.00-5.50) x10^6/uL Hgb (12.0-16.0) g/dL Hct (33.0-47.0) % MCV (78.0-93.0) fL MCH (26.0-32.0) pg MCHC (32.0-36.0) g/dL RDW Coeff of Kris (10.0-15.0) % Plt Count (130-400) x10^3/uL Immature Gran % (Auto) (0.00-0.43) % Neut % (Auto) (50.0-80.0) % Lymph % (Auto) (25.0-50.0) % [place] % (Auto) (2.0-11.0) % Eos % (Auto) (0.0-4.0) % Baso % (Auto) (0.2-1.2) % Neut # (Auto) (1.8-7.7) x10^3/uL Lymph # (Auto) (1.0-4.8) x10^3/uL [place] # (Auto) (0.0-0.8) x10^3/uL Eos # (Auto) (0.0-0.5) x10^3/uL Baso # (Auto) (0.0-0.2) x10^3/uL Immature Gran # (Auto) (0.00-0.07) x10^3/uL Add Manual Diff Neutrophils % (Manual) (50-80) % Band Neutrophils % (0-6) % Lymphocytes % (Manual) (25-50) % Monocytes % (Manual) (2-11) % Metamyelocytes % (0) % Immature Gran # (0.00-0.07) X10^3/Ul Absolute Neutrophils (1.8-7.7) x10^3/uL Lymphocytes # (Manual) (1.0-4.8) x10^3/uL Monocytes # (Manual) (0.0-0.8) x10^3/uL Platelet Estimate POC VBG pH (7.33-7.43) pH POC VBG pCO2 (41-51) mmHg POC VBG pO2 mmHg POC VBG HCO3 (22-29) mmol/L POC Venous O2 Sat % VBG Base Excess (-(2)-3) mmol/L POC FiO2 Sodium 135 L (136-145) mmol/L Potassium 4.8 (3.5-5.1) mmol/L Chloride 97 L (98-107) mmol/L Carbon Dioxide 22 (21-32) mmol/L POC Venous Total CO2 (23-30) mmol/L Anion Gap 20.8 H (5-15) mmol/L BUN 107 H* (7-18) mg/dL Creatinine 7.4 H* D (0.55-1.02) mg/dL Est Cr Clr Drug Dosing 7.00 Estimated GFR (MDRD) 6 Glucose 352 H (70-99) mg/dL POC Glucose (70-99) mg/dL Hemoglobin A1c (<5.7) % Lactic Acid 6.2 H* (0.4-2.0) mmol/L Calcium 8.1 L (8.5-10.1) mg/dL Corrected Calcium (8.5-10.1) mg/dL Magnesium (1.8-2.4) mg/dL Total Bilirubin (0.2-1.0) mg/dL AST (15-37) U/L ALT (14-59) U/L Alkaline Phosphatase (46-116) U/L Lactate Dehydrogenase 193 (81-234) U/L C-Reactive Protein (<=0.9) mg/dL Total Protein (6.4-8.2) g/dL Albumin (3.4-5.0) g/dL Globulin Albumin/Globulin Ratio Lipase (73-393) U/L Procalcitonin (0.1-0.50) ng/mL Urine Color (YELLOW) Urine Appearance (CLEAR) Urine pH (5.0-8.0) Ur Specific [place] Urine Protein (NEGATIVE) mg/dL Urine Glucose (UA) (NEGATIVE) mg/dL Urine Ketones (NEGATIVE) mg/dL Urine Occult Blood (NEGATIVE) Urine Nitrite (NEGATIVE) Urine Bilirubin (NEGATIVE) Urine Urobilinogen (0.2) EU/dL Ur Leukocyte Esterase (NEGATIVE) Urine RBC (NOT SEEN) /HPF Urine WBC (NOT SEEN) /HPF Ur Squamous Epith Cells (NOT SEEN) /HPF Amorphous Sediment Urine Bacteria (NOT SEEN) /HPF Urine Mucus (NOT SEEN) /LPF SARS CoV-2 RNA Rapid BERNADINE (NEGATIVE) 05/14/21 05/14/21 05/14/21 Range/Units 02:21 06:28 06:28 WBC 15.4 H (4.0-10.0) x10^3/uL RBC 3.94 L (4.00-5.50) x10^6/uL Hgb 11.7 L (12.0-16.0) g/dL Hct 33.0 (33.0-47.0) % MCV 83.8 (78.0-93.0) fL MCH 29.7 (26.0-32.0) pg MCHC 35.5 (32.0-36.0) g/dL RDW Coeff of Kris 12.2 (10.0-15.0) % Plt Count 492 H D (130-400) x10^3/uL Immature Gran % (Auto) 0.60 H (0.00-0.43) % Neut % (Auto) 87.5 H (50.0-80.0) % Lymph % (Auto) 4.9 L (25.0-50.0) % [place] % (Auto) 6.9 (2.0-11.0) % Eos % (Auto) 0.0 (0.0-4.0) % Baso % (Auto) 0.1 L (0.2-1.2) % Neut # (Auto) 13.5 H (1.8-7.7) x10^3/uL Lymph # (Auto) 0.8 L (1.0-4.8) x10^3/uL [place] # (Auto) 1.1 H (0.0-0.8) x10^3/uL Eos # (Auto) 0.0 (0.0-0.5) x10^3/uL Baso # (Auto) 0.0 (0.0-0.2) x10^3/uL Immature Gran # (Auto) 0.09 H (0.00-0.07) x10^3/uL Add Manual Diff Neutrophils % (Manual) (50-80) % Band Neutrophils % (0-6) % Lymphocytes % (Manual) (25-50) % Monocytes % (Manual) (2-11) % Metamyelocytes % (0) % Immature Gran # (0.00-0.07) X10^3/Ul Absolute Neutrophils (1.8-7.7) x10^3/uL Lymphocytes # (Manual) (1.0-4.8) x10^3/uL Monocytes # (Manual) (0.0-0.8) x10^3/uL Platelet Estimate POC VBG pH 7.35 (7.33-7.43) pH POC VBG pCO2 36 L (41-51) mmHg POC VBG pO2 29 mmHg POC VBG HCO3 20 L (22-29) mmol/L POC Venous O2 Sat 52 % VBG Base Excess -5 L (-(2)-3) mmol/L POC FiO2 21 Sodium 136 (136-145) mmol/L Potassium 4.4 (3.5-5.1) mmol/L Chloride 99 (98-107) mmol/L Carbon Dioxide 25 (21-32) mmol/L POC Venous Total CO2 21 L (23-30) mmol/L Anion Gap 16.4 H (5-15) mmol/L BUN 102 H* (7-18) mg/dL Creatinine 6.9 H* (0.55-1.02) mg/dL Est Cr Clr Drug Dosing 7.51 Estimated GFR (MDRD) 6 Glucose 295 H (70-99) mg/dL POC Glucose (70-99) mg/dL Hemoglobin A1c (<5.7) % Lactic Acid (0.4-2.0) mmol/L Calcium 8.4 L (8.5-10.1) mg/dL Corrected Calcium 9.7 (8.5-10.1) mg/dL Magnesium (1.8-2.4) mg/dL Total Bilirubin 0.3 (0.2-1.0) mg/dL AST 14 L (15-37) U/L ALT 16 (14-59) U/L Alkaline Phosphatase 62 (46-116) U/L Lactate Dehydrogenase 178 (81-234) U/L C-Reactive Protein 12.3 H (<=0.9) mg/dL Total Protein 6.1 L (6.4-8.2) g/dL Albumin 2.4 L (3.4-5.0) g/dL Globulin 3.7 Albumin/Globulin Ratio 0.65 Lipase 2716 H (73-393) U/L Procalcitonin (0.1-0.50) ng/mL Urine Color (YELLOW) Urine Appearance (CLEAR) Urine pH (5.0-8.0) Ur Specific [place] Urine Protein (NEGATIVE) mg/dL Urine Glucose (UA) (NEGATIVE) mg/dL Urine Ketones (NEGATIVE) mg/dL Urine Occult Blood (NEGATIVE) Urine Nitrite (NEGATIVE) Urine Bilirubin (NEGATIVE) Urine Urobilinogen (0.2) EU/dL Ur Leukocyte Esterase (NEGATIVE) Urine RBC (NOT SEEN) /HPF Urine WBC (NOT SEEN) /HPF Ur Squamous Epith Cells (NOT SEEN) /HPF Amorphous Sediment Urine Bacteria (NOT SEEN) /HPF Urine Mucus (NOT SEEN) /LPF SARS CoV-2 RNA Rapid BERNADINE (NEGATIVE) 05/14/21 05/14/21 05/14/21 Range/Units 06:28 06:28 06:28 WBC (4.0-10.0) x10^3/uL RBC (4.00-5.50) x10^6/uL Hgb (12.0-16.0) g/dL Hct (33.0-47.0) % MCV (78.0-93.0) fL MCH (26.0-32.0) pg MCHC (32.0-36.0) g/dL RDW Coeff of Kris (10.0-15.0) % Plt Count (130-400) x10^3/uL Immature Gran % (Auto) (0.00-0.43) % Neut % (Auto) (50.0-80.0) % Lymph % (Auto) (25.0-50.0) % [place] % (Auto) (2.0-11.0) % Eos % (Auto) (0.0-4.0) % Baso % (Auto) (0.2-1.2) % Neut # (Auto) (1.8-7.7) x10^3/uL Lymph # (Auto) (1.0-4.8) x10^3/uL [place] # (Auto) (0.0-0.8) x10^3/uL Eos # (Auto) (0.0-0.5) x10^3/uL Baso # (Auto) (0.0-0.2) x10^3/uL Immature Gran # (Auto) (0.00-0.07) x10^3/uL Add Manual Diff Neutrophils % (Manual) (50-80) % Band Neutrophils % (0-6) % Lymphocytes % (Manual) (25-50) % Monocytes % (Manual) (2-11) % Metamyelocytes % (0) % Immature Gran # (0.00-0.07) X10^3/Ul Absolute Neutrophils (1.8-7.7) x10^3/uL Lymphocytes # (Manual) (1.0-4.8) x10^3/uL Monocytes # (Manual) (0.0-0.8) x10^3/uL Platelet Estimate POC VBG pH (7.33-7.43) pH POC VBG pCO2 (41-51) mmHg POC VBG pO2 mmHg POC VBG HCO3 (22-29) mmol/L POC Venous O2 Sat % VBG Base Excess (-(2)-3) mmol/L POC FiO2 Sodium (136-145) mmol/L Potassium (3.5-5.1) mmol/L Chloride (98-107) mmol/L Carbon Dioxide (21-32) mmol/L POC Venous Total CO2 (23-30) mmol/L Anion Gap (5-15) mmol/L BUN (7-18) mg/dL Creatinine (0.55-1.02) mg/dL Est Cr Clr Drug Dosing Estimated GFR (MDRD) Glucose (70-99) mg/dL POC Glucose (70-99) mg/dL Hemoglobin A1c 11.0 H (<5.7) % Lactic Acid 4.0 H* (0.4-2.0) mmol/L Calcium (8.5-10.1) mg/dL Corrected Calcium (8.5-10.1) mg/dL Magnesium (1.8-2.4) mg/dL Total Bilirubin (0.2-1.0) mg/dL AST (15-37) U/L ALT (14-59) U/L Alkaline Phosphatase (46-116) U/L Lactate Dehydrogenase (81-234) U/L C-Reactive Protein (<=0.9) mg/dL Total Protein (6.4-8.2) g/dL Albumin (3.4-5.0) g/dL Globulin Albumin/Globulin Ratio Lipase (73-393) U/L Procalcitonin 1.28 H (0.1-0.50) ng/mL Urine Color (YELLOW) Urine Appearance (CLEAR) Urine pH (5.0-8.0) Ur Specific [place] Urine Protein (NEGATIVE) mg/dL Urine Glucose (UA) (NEGATIVE) mg/dL Urine Ketones (NEGATIVE) mg/dL Urine Occult Blood (NEGATIVE) Urine Nitrite (NEGATIVE) Urine Bilirubin (NEGATIVE) Urine Urobilinogen (0.2) EU/dL Ur Leukocyte Esterase (NEGATIVE) Urine RBC (NOT SEEN) /HPF Urine WBC (NOT SEEN) /HPF Ur Squamous Epith Cells (NOT SEEN) /HPF Amorphous Sediment Urine Bacteria (NOT SEEN) /HPF Urine Mucus (NOT SEEN) /LPF SARS CoV-2 RNA Rapid BERNADINE (NEGATIVE) Med Orders - Current: Current Medications Acetaminophen (Acetaminophen 325 Mg Tab) 650 mg PO Q4H PRN PRN Reason: Pain (Mild 1-3)/fever Aspirin (Aspirin 81 Mg Tab.Chew) 81 mg PO DAILY [facility] Last Admin: 05/14/21 08:28 Dose: 81 mg Documented by: Calcium Carbonate (Calcium Carbonate/Vitamin D3 1250 Mg-5 Mcg Tab) 1 tab PO BIDMEALS [facility] Last Admin: 05/14/21 08:28 Dose: 1 tab Documented by: Ceftriaxone Sodium (Ceftriaxone 2 Gm Vial) 2 gm IVPUSH DAILY [facility] Dextrose/Water (50% Dextrose In Water 50 Ml Syringe) 50 ml IVPUSH ASDIRECTED PRN PRN Reason: Hypoglycemia Glucagon (Glucagon,Human Recombinant 1 Mg Vial) 1 mg IM ASDIRECTED PRN PRN Reason: Hypoglycemia Heparin Sodium (Porcine) (Heparin Sodium 5,000 Units/Ml Vial) 5,000 units SUBCUT Q12H [facility] Sodium Chloride (Normal Saline) 1,000 mls @ 200 mls/hr IV ASDIRECTED [facility] Last Admin: 05/14/21 05:38 Dose: 200 mls/hr Documented by: Sodium Chloride (Normal Saline) 1,000 mls @ 500 mls/hr IV ASDIRECTED [facility] Last Admin: 05/14/21 00:35 Dose: 500 mls/hr Documented by: Insulin Human Lispro (Insulin Lispro 100 Units/Ml 3 Ml Vial) 0 unit SUBCUT TIDMEALS [facility]; Protocol Last Admin: 05/14/21 08:36 Dose: 3 unit Documented by: Metoprolol Succinate (Metoprolol Succinate 50 Mg Tab.Er) 100 mg PO DAILY [facility] Last Admin: 05/14/21 08:28 Dose: 100 mg Documented by: Ondansetron HCl (Ondansetron 4 Mg/2 Ml Sdv) 4 mg IV Q6H PRN PRN Reason: Nausea/Vomiting Sodium Chloride (Sodium Chloride 0.9% 10 Ml Syringe) 10 ml FLUSH ASDIRECTED PRN PRN Reason: Keep Vein Open Discontinued Medications Ceftriaxone Sodium (Ceftriaxone 2 Gm Vial) 2 gm IVPUSH STAT ONE Stop: 05/13/21 22:29 Last Admin: 05/13/21 22:38 Dose: 2 gm Documented by: Enoxaparin Sodium (Enoxaparin 30 Mg/0.3 Ml Syringe) 30 mg SUBCUT DAILY@2000 [facility] Hydrochlorothiazide (Hydrochlorothiazide 25 Mg Tab) 25 mg PO DAILY [facility] Lactated Ringer's (Ringers, Lactated) 1,000 mls @ 999 mls/hr IV ONETIME ONE Stop: 05/13/21 23:06 Last Admin: 05/13/21 22:20 Dose: 999 mls/hr Documented by: Lactated Ringer's (Ringers, Lactated) 1,000 mls @ 999 mls/hr IV ONETIME ONE Stop: 05/13/21 23:50 Last Admin: 05/13/21 23:10 Dose: 999 mls/hr Documented by: Sodium Chloride (Normal Saline) 1,000 mls @ 500 mls/hr IV ASDIRECTED [facility] Insulin Human Regular (Insulin Regular, Human 100 Units/Ml 3 Ml Vial) 5 unit SUBCUT NOW STA Stop: 05/13/21 23:13 Last Admin: 05/13/21 23:21 Dose: 5 units Documented by: Ondansetron HCl (Ondansetron 4 Mg/2 Ml Sdv) 4 mg IV ONETIME ONE Stop: 05/13/21 22:07 Last Admin: 05/13/21 22:25 Dose: 4 mg Documented by: - Exam General: Alert, Oriented, Cooperative, No Acute Distress HEENT: Mucous Membr. Moist/[place]ove Neck: Supple, Trachea Midline, No Thyromegaly. No: Lymphadenopathy Lungs: Clear to Auscultation, Normal Respiratory Effort Cardiovascular: Regular Rate, Regular Rhythm, No Murmurs GI/Abdominal Exam: Normal Bowel Sounds, Soft, Non-Tender, No Organomegaly, No Distention, No Mass Extremities: Normal Inspection, Non-Tender, No Pedal Edema, Normal Capillary Refill Peripheral Pulses: 2+: Radial (L), Radial (R) Skin: Warm, Dry, Intact Neurological: No New Focal Deficit - Patient Data Lab Results Last 24 hrs: Laboratory Results - last 24 hr 05/13/21 05/13/21 05/13/21 Range/Units 22:08 22:08 22:08 WBC 20.1 H* (4.0-10.0) x10^3/uL RBC 4.39 (4.00-5.50) x10^6/uL Hgb 13.0 (12.0-16.0) g/dL Hct 36.7 (33.0-47.0) % MCV 83.6 (78.0-93.0) fL MCH 29.6 (26.0-32.0) pg MCHC 35.4 (32.0-36.0) g/dL RDW Coeff of Kris 12.2 (10.0-15.0) % Plt Count 701 H (130-400) x10^3/uL Immature Gran % (Auto) (0.00-0.43) % Neut % (Auto) (50.0-80.0) % Lymph % (Auto) (25.0-50.0) % [place] % (Auto) (2.0-11.0) % Eos % (Auto) (0.0-4.0) % Baso % (Auto) (0.2-1.2) % Neut # (Auto) (1.8-7.7) x10^3/uL Lymph # (Auto) (1.0-4.8) x10^3/uL [place] # (Auto) (0.0-0.8) x10^3/uL Eos # (Auto) (0.0-0.5) x10^3/uL Baso # (Auto) (0.0-0.2) x10^3/uL Immature Gran # (Auto) (0.00-0.07) x10^3/uL Add Manual Diff Yes Neutrophils % (Manual) 88 H (50-80) % Band Neutrophils % 1 (0-6) % Lymphocytes % (Manual) 4 L (25-50) % Monocytes % (Manual) 6 (2-11) % Metamyelocytes % 1 H (0) % Immature Gran # 0.20 H (0.00-0.07) X10^3/Ul Absolute Neutrophils 17.9 H (1.8-7.7) x10^3/uL Lymphocytes # (Manual) 0.8 L (1.0-4.8) x10^3/uL Monocytes # (Manual) 1.2 H (0.0-0.8) x10^3/uL Platelet Estimate Increased H POC VBG pH (7.33-7.43) pH POC VBG pCO2 (41-51) mmHg POC VBG pO2 mmHg POC VBG HCO3 (22-29) mmol/L POC Venous O2 Sat % VBG Base Excess (-(2)-3) mmol/L POC FiO2 Sodium 128 L* D (136-145) mmol/L Potassium 4.7 (3.5-5.1) mmol/L Chloride 88 L D (98-107) mmol/L Carbon Dioxide 18 L (21-32) mmol/L POC Venous Total CO2 (23-30) mmol/L Anion Gap 26.7 H (5-15) mmol/L BUN 120 H* D (7-18) mg/dL Creatinine 8.6 H* D (0.55-1.02) mg/dL Est Cr Clr Drug Dosing TNP Estimated GFR (MDRD) 5 Glucose 582 H* (70-99) mg/dL POC Glucose (70-99) mg/dL Hemoglobin A1c (<5.7) % Lactic Acid 5.3 H* (0.4-2.0) mmol/L Calcium 8.6 (8.5-10.1) mg/dL Corrected Calcium 9.4 (8.5-10.1) mg/dL Magnesium (1.8-2.4) mg/dL Total Bilirubin 0.5 (0.2-1.0) mg/dL AST 11 L (15-37) U/L ALT 14 (14-59) U/L Alkaline Phosphatase 74 (46-116) U/L Lactate Dehydrogenase (81-234) U/L C-Reactive Protein 12.9 H (<=0.9) mg/dL Total Protein 7.5 (6.4-8.2) g/dL Albumin 3.0 L (3.4-5.0) g/dL Globulin 4.5 Albumin/Globulin Ratio 0.67 Lipase 8569 H (73-393) U/L Procalcitonin (0.1-0.50) ng/mL Urine Color (YELLOW) Urine Appearance (CLEAR) Urine pH (5.0-8.0) Ur Specific [place] Urine Protein (NEGATIVE) mg/dL Urine Glucose (UA) (NEGATIVE) mg/dL Urine Ketones (NEGATIVE) mg/dL Urine Occult Blood (NEGATIVE) Urine Nitrite (NEGATIVE) Urine Bilirubin (NEGATIVE) Urine Urobilinogen (0.2) EU/dL Ur Leukocyte Esterase (NEGATIVE) Urine RBC (NOT SEEN) /HPF Urine WBC (NOT SEEN) /HPF Ur Squamous Epith Cells (NOT SEEN) /HPF Amorphous Sediment Urine Bacteria (NOT SEEN) /HPF Urine Mucus (NOT SEEN) /LPF SARS CoV-2 RNA Rapid BERNADINE (NEGATIVE) 05/13/21 05/13/21 05/13/21 Range/Units 22:08 22:08 22:22 WBC (4.0-10.0) x10^3/uL RBC (4.00-5.50) x10^6/uL Hgb (12.0-16.0) g/dL Hct (33.0-47.0) % MCV (78.0-93.0) fL MCH (26.0-32.0) pg MCHC (32.0-36.0) g/dL RDW Coeff of Kris (10.0-15.0) % Plt Count (130-400) x10^3/uL Immature Gran % (Auto) (0.00-0.43) % Neut % (Auto) (50.0-80.0) % Lymph % (Auto) (25.0-50.0) % [place] % (Auto) (2.0-11.0) % Eos % (Auto) (0.0-4.0) % Baso % (Auto) (0.2-1.2) % Neut # (Auto) (1.8-7.7) x10^3/uL Lymph # (Auto) (1.0-4.8) x10^3/uL [place] # (Auto) (0.0-0.8) x10^3/uL Eos # (Auto) (0.0-0.5) x10^3/uL Baso # (Auto) (0.0-0.2) x10^3/uL Immature Gran # (Auto) (0.00-0.07) x10^3/uL Add Manual Diff Neutrophils % (Manual) (50-80) % Band Neutrophils % (0-6) % Lymphocytes % (Manual) (25-50) % Monocytes % (Manual) (2-11) % Metamyelocytes % (0) % Immature Gran # (0.00-0.07) X10^3/Ul Absolute Neutrophils (1.8-7.7) x10^3/uL Lymphocytes # (Manual) (1.0-4.8) x10^3/uL Monocytes # (Manual) (0.0-0.8) x10^3/uL Platelet Estimate POC VBG pH 7.39 (7.33-7.43) pH POC VBG pCO2 26 L (41-51) mmHg POC VBG pO2 59 mmHg POC VBG HCO3 16 L (22-29) mmol/L POC Venous O2 Sat 91 % VBG Base Excess -9 L (-(2)-3) mmol/L POC FiO2 21 Sodium (136-145) mmol/L Potassium (3.5-5.1) mmol/L Chloride (98-107) mmol/L Carbon Dioxide (21-32) mmol/L POC Venous Total CO2 17 L (23-30) mmol/L Anion Gap (5-15) mmol/L BUN (7-18) mg/dL Creatinine (0.55-1.02) mg/dL Est Cr Clr Drug Dosing Estimated GFR (MDRD) Glucose (70-99) mg/dL POC Glucose (70-99) mg/dL Hemoglobin A1c (<5.7) % Lactic Acid (0.4-2.0) mmol/L Calcium (8.5-10.1) mg/dL Corrected Calcium (8.5-10.1) mg/dL Magnesium 2.1 (1.8-2.4) mg/dL Total Bilirubin (0.2-1.0) mg/dL AST (15-37) U/L ALT (14-59) U/L Alkaline Phosphatase (46-116) U/L Lactate Dehydrogenase (81-234) U/L C-Reactive Protein (<=0.9) mg/dL Total Protein (6.4-8.2) g/dL Albumin (3.4-5.0) g/dL Globulin Albumin/Globulin Ratio Lipase (73-393) U/L Procalcitonin 1.48 H (0.1-0.50) ng/mL Urine Color (YELLOW) Urine Appearance (CLEAR) Urine pH (5.0-8.0) Ur Specific [place] Urine Protein (NEGATIVE) mg/dL Urine Glucose (UA) (NEGATIVE) mg/dL Urine Ketones (NEGATIVE) mg/dL Urine Occult Blood (NEGATIVE) Urine Nitrite (NEGATIVE) Urine Bilirubin (NEGATIVE) Urine Urobilinogen (0.2) EU/dL Ur Leukocyte Esterase (NEGATIVE) Urine RBC (NOT SEEN) /HPF Urine WBC (NOT SEEN) /HPF Ur Squamous Epith Cells (NOT SEEN) /HPF Amorphous Sediment Urine Bacteria (NOT SEEN) /HPF Urine Mucus (NOT SEEN) /LPF SARS CoV-2 RNA Rapid BERNADINE (NEGATIVE) 05/13/21 05/13/21 05/14/21 Range/Units 22:58 23:09 00:53 WBC (4.0-10.0) x10^3/uL RBC (4.00-5.50) x10^6/uL Hgb (12.0-16.0) g/dL Hct (33.0-47.0) % MCV (78.0-93.0) fL MCH (26.0-32.0) pg MCHC (32.0-36.0) g/dL RDW Coeff of Kris (10.0-15.0) % Plt Count (130-400) x10^3/uL Immature Gran % (Auto) (0.00-0.43) % Neut % (Auto) (50.0-80.0) % Lymph % (Auto) (25.0-50.0) % [place] % (Auto) (2.0-11.0) % Eos % (Auto) (0.0-4.0) % Baso % (Auto) (0.2-1.2) % Neut # (Auto) (1.8-7.7) x10^3/uL Lymph # (Auto) (1.0-4.8) x10^3/uL [place] # (Auto) (0.0-0.8) x10^3/uL Eos # (Auto) (0.0-0.5) x10^3/uL Baso # (Auto) (0.0-0.2) x10^3/uL Immature Gran # (Auto) (0.00-0.07) x10^3/uL Add Manual Diff Neutrophils % (Manual) (50-80) % Band Neutrophils % (0-6) % Lymphocytes % (Manual) (25-50) % Monocytes % (Manual) (2-11) % Metamyelocytes % (0) % Immature Gran # (0.00-0.07) X10^3/Ul Absolute Neutrophils (1.8-7.7) x10^3/uL Lymphocytes # (Manual) (1.0-4.8) x10^3/uL Monocytes # (Manual) (0.0-0.8) x10^3/uL Platelet Estimate POC VBG pH (7.33-7.43) pH POC VBG pCO2 (41-51) mmHg POC VBG pO2 mmHg POC VBG HCO3 (22-29) mmol/L POC Venous O2 Sat % VBG Base Excess (-(2)-3) mmol/L POC FiO2 Sodium (136-145) mmol/L Potassium (3.5-5.1) mmol/L Chloride (98-107) mmol/L Carbon Dioxide (21-32) mmol/L POC Venous Total CO2 (23-30) mmol/L Anion Gap (5-15) mmol/L BUN (7-18) mg/dL Creatinine (0.55-1.02) mg/dL Est Cr Clr Drug Dosing Estimated GFR (MDRD) Glucose (70-99) mg/dL POC Glucose 454 H* (70-99) mg/dL Hemoglobin A1c (<5.7) % Lactic Acid (0.4-2.0) mmol/L Calcium (8.5-10.1) mg/dL Corrected Calcium (8.5-10.1) mg/dL Magnesium (1.8-2.4) mg/dL Total Bilirubin (0.2-1.0) mg/dL AST (15-37) U/L ALT (14-59) U/L Alkaline Phosphatase (46-116) U/L Lactate Dehydrogenase (81-234) U/L C-Reactive Protein (<=0.9) mg/dL Total Protein (6.4-8.2) g/dL Albumin (3.4-5.0) g/dL Globulin Albumin/Globulin Ratio Lipase (73-393) U/L Procalcitonin (0.1-0.50) ng/mL Urine Color Light yellow (YELLOW) Urine Appearance Cloudy H (CLEAR) Urine pH 5.0 (5.0-8.0) Ur Specific [place] 1.015 Urine Protein 100 H (NEGATIVE) mg/dL Urine Glucose (UA) >=1000 H (NEGATIVE) mg/dL Urine Ketones Trace H (NEGATIVE) mg/dL Urine Occult Blood Moderate H (NEGATIVE) Urine Nitrite Negative (NEGATIVE) Urine Bilirubin Small H (NEGATIVE) Urine Urobilinogen 0.2 (0.2) EU/dL Ur Leukocyte Esterase Moderate H (NEGATIVE) Urine RBC 20-30 H (NOT SEEN) /HPF Urine WBC >100 H (NOT SEEN) /HPF Ur Squamous Epith Cells Few H (NOT SEEN) /HPF Amorphous Sediment Occasional Urine Bacteria Occasional H (NOT SEEN) /HPF Urine Mucus Few H (NOT SEEN) /LPF SARS CoV-2 RNA Rapid BERNADINE Negative (NEGATIVE) 05/14/21 05/14/21 05/14/21 Range/Units 02:05 02:05 02:05 WBC (4.0-10.0) x10^3/uL RBC (4.00-5.50) x10^6/uL Hgb (12.0-16.0) g/dL Hct (33.0-47.0) % MCV (78.0-93.0) fL MCH (26.0-32.0) pg MCHC (32.0-36.0) g/dL RDW Coeff of Kris (10.0-15.0) % Plt Count (130-400) x10^3/uL Immature Gran % (Auto) (0.00-0.43) % Neut % (Auto) (50.0-80.0) % Lymph % (Auto) (25.0-50.0) % [place] % (Auto) (2.0-11.0) % Eos % (Auto) (0.0-4.0) % Baso % (Auto) (0.2-1.2) % Neut # (Auto) (1.8-7.7) x10^3/uL Lymph # (Auto) (1.0-4.8) x10^3/uL [place] # (Auto) (0.0-0.8) x10^3/uL Eos # (Auto) (0.0-0.5) x10^3/uL Baso # (Auto) (0.0-0.2) x10^3/uL Immature Gran # (Auto) (0.00-0.07) x10^3/uL Add Manual Diff Neutrophils % (Manual) (50-80) % Band Neutrophils % (0-6) % Lymphocytes % (Manual) (25-50) % Monocytes % (Manual) (2-11) % Metamyelocytes % (0) % Immature Gran # (0.00-0.07) X10^3/Ul Absolute Neutrophils (1.8-7.7) x10^3/uL Lymphocytes # (Manual) (1.0-4.8) x10^3/uL Monocytes # (Manual) (0.0-0.8) x10^3/uL Platelet Estimate POC VBG pH (7.33-7.43) pH POC VBG pCO2 (41-51) mmHg POC VBG pO2 mmHg POC VBG HCO3 (22-29) mmol/L POC Venous O2 Sat % VBG Base Excess (-(2)-3) mmol/L POC FiO2 Sodium 135 L (136-145) mmol/L Potassium 4.8 (3.5-5.1) mmol/L Chloride 97 L (98-107) mmol/L Carbon Dioxide 22 (21-32) mmol/L POC Venous Total CO2 (23-30) mmol/L Anion Gap 20.8 H (5-15) mmol/L BUN 107 H* (7-18) mg/dL Creatinine 7.4 H* D (0.55-1.02) mg/dL Est Cr Clr Drug Dosing 7.00 Estimated GFR (MDRD) 6 Glucose 352 H (70-99) mg/dL POC Glucose (70-99) mg/dL Hemoglobin A1c (<5.7) % Lactic Acid 6.2 H* (0.4-2.0) mmol/L Calcium 8.1 L (8.5-10.1) mg/dL Corrected Calcium (8.5-10.1) mg/dL Magnesium (1.8-2.4) mg/dL Total Bilirubin (0.2-1.0) mg/dL AST (15-37) U/L ALT (14-59) U/L Alkaline Phosphatase (46-116) U/L Lactate Dehydrogenase 193 (81-234) U/L C-Reactive Protein (<=0.9) mg/dL Total Protein (6.4-8.2) g/dL Albumin (3.4-5.0) g/dL Globulin Albumin/Globulin Ratio Lipase (73-393) U/L Procalcitonin (0.1-0.50) ng/mL Urine Color (YELLOW) Urine Appearance (CLEAR) Urine pH (5.0-8.0) Ur Specific [place] Urine Protein (NEGATIVE) mg/dL Urine Glucose (UA) (NEGATIVE) mg/dL Urine Ketones (NEGATIVE) mg/dL Urine Occult Blood (NEGATIVE) Urine Nitrite (NEGATIVE) Urine Bilirubin (NEGATIVE) Urine Urobilinogen (0.2) EU/dL Ur Leukocyte Esterase (NEGATIVE) Urine RBC (NOT SEEN) /HPF Urine WBC (NOT SEEN) /HPF Ur Squamous Epith Cells (NOT SEEN) /HPF Amorphous Sediment Urine Bacteria (NOT SEEN) /HPF Urine Mucus (NOT SEEN) /LPF SARS CoV-2 RNA Rapid BERNADINE (NEGATIVE) 05/14/21 05/14/21 05/14/21 Range/Units 02:21 06:28 06:28 WBC 15.4 H (4.0-10.0) x10^3/uL RBC 3.94 L (4.00-5.50) x10^6/uL Hgb 11.7 L (12.0-16.0) g/dL Hct 33.0 (33.0-47.0) % MCV 83.8 (78.0-93.0) fL MCH 29.7 (26.0-32.0) pg MCHC 35.5 (32.0-36.0) g/dL RDW Coeff of Kris 12.2 (10.0-15.0) % Plt Count 492 H D (130-400) x10^3/uL Immature Gran % (Auto) 0.60 H (0.00-0.43) % Neut % (Auto) 87.5 H (50.0-80.0) % Lymph % (Auto) 4.9 L (25.0-50.0) % [place] % (Auto) 6.9 (2.0-11.0) % Eos % (Auto) 0.0 (0.0-4.0) % Baso % (Auto) 0.1 L (0.2-1.2) % Neut # (Auto) 13.5 H (1.8-7.7) x10^3/uL Lymph # (Auto) 0.8 L (1.0-4.8) x10^3/uL [place] # (Auto) 1.1 H (0.0-0.8) x10^3/uL Eos # (Auto) 0.0 (0.0-0.5) x10^3/uL Baso # (Auto) 0.0 (0.0-0.2) x10^3/uL Immature Gran # (Auto) 0.09 H (0.00-0.07) x10^3/uL Add Manual Diff Neutrophils % (Manual) (50-80) % Band Neutrophils % (0-6) % Lymphocytes % (Manual) (25-50) % Monocytes % (Manual) (2-11) % Metamyelocytes % (0) % Immature Gran # (0.00-0.07) X10^3/Ul Absolute Neutrophils (1.8-7.7) x10^3/uL Lymphocytes # (Manual) (1.0-4.8) x10^3/uL Monocytes # (Manual) (0.0-0.8) x10^3/uL Platelet Estimate POC VBG pH 7.35 (7.33-7.43) pH POC VBG pCO2 36 L (41-51) mmHg POC VBG pO2 29 mmHg POC VBG HCO3 20 L (22-29) mmol/L POC Venous O2 Sat 52 % VBG Base Excess -5 L (-(2)-3) mmol/L POC FiO2 21 Sodium 136 (136-145) mmol/L Potassium 4.4 (3.5-5.1) mmol/L Chloride 99 (98-107) mmol/L Carbon Dioxide 25 (21-32) mmol/L POC Venous Total CO2 21 L (23-30) mmol/L Anion Gap 16.4 H (5-15) mmol/L BUN 102 H* (7-18) mg/dL Creatinine 6.9 H* (0.55-1.02) mg/dL Est Cr Clr Drug Dosing 7.51 Estimated GFR (MDRD) 6 Glucose 295 H (70-99) mg/dL POC Glucose (70-99) mg/dL Hemoglobin A1c (<5.7) % Lactic Acid (0.4-2.0) mmol/L Calcium 8.4 L (8.5-10.1) mg/dL Corrected Calcium 9.7 (8.5-10.1) mg/dL Magnesium (1.8-2.4) mg/dL Total Bilirubin 0.3 (0.2-1.0) mg/dL AST 14 L (15-37) U/L ALT 16 (14-59) U/L Alkaline Phosphatase 62 (46-116) U/L Lactate Dehydrogenase 178 (81-234) U/L C-Reactive Protein 12.3 H (<=0.9) mg/dL Total Protein 6.1 L (6.4-8.2) g/dL Albumin 2.4 L (3.4-5.0) g/dL Globulin 3.7 Albumin/Globulin Ratio 0.65 Lipase 2716 H (73-393) U/L Procalcitonin (0.1-0.50) ng/mL Urine Color (YELLOW) Urine Appearance (CLEAR) Urine pH (5.0-8.0) Ur Specific [place] Urine Protein (NEGATIVE) mg/dL Urine Glucose (UA) (NEGATIVE) mg/dL Urine Ketones (NEGATIVE) mg/dL Urine Occult Blood (NEGATIVE) Urine Nitrite (NEGATIVE) Urine Bilirubin (NEGATIVE) Urine Urobilinogen (0.2) EU/dL Ur Leukocyte Esterase (NEGATIVE) Urine RBC (NOT SEEN) /HPF Urine WBC (NOT SEEN) /HPF Ur Squamous Epith Cells (NOT SEEN) /HPF Amorphous Sediment Urine Bacteria (NOT SEEN) /HPF Urine Mucus (NOT SEEN) /LPF SARS CoV-2 RNA Rapid BERNADINE (NEGATIVE) 05/14/21 05/14/21 05/14/21 Range/Units 06:28 06:28 06:28 WBC (4.0-10.0) x10^3/uL RBC (4.00-5.50) x10^6/uL Hgb (12.0-16.0) g/dL Hct (33.0-47.0) % MCV (78.0-93.0) fL MCH (26.0-32.0) pg MCHC (32.0-36.0) g/dL RDW Coeff of Kris (10.0-15.0) % Plt Count (130-400) x10^3/uL Immature Gran % (Auto) (0.00-0.43) % Neut % (Auto) (50.0-80.0) % Lymph % (Auto) (25.0-50.0) % [place] % (Auto) (2.0-11.0) % Eos % (Auto) (0.0-4.0) % Baso % (Auto) (0.2-1.2) % Neut # (Auto) (1.8-7.7) x10^3/uL Lymph # (Auto) (1.0-4.8) x10^3/uL [place] # (Auto) (0.0-0.8) x10^3/uL Eos # (Auto) (0.0-0.5) x10^3/uL Baso # (Auto) (0.0-0.2) x10^3/uL Immature Gran # (Auto) (0.00-0.07) x10^3/uL Add Manual Diff Neutrophils % (Manual) (50-80) % Band Neutrophils % (0-6) % Lymphocytes % (Manual) (25-50) % Monocytes % (Manual) (2-11) % Metamyelocytes % (0) % Immature Gran # (0.00-0.07) X10^3/Ul Absolute Neutrophils (1.8-7.7) x10^3/uL Lymphocytes # (Manual) (1.0-4.8) x10^3/uL Monocytes # (Manual) (0.0-0.8) x10^3/uL Platelet Estimate POC VBG pH (7.33-7.43) pH POC VBG pCO2 (41-51) mmHg POC VBG pO2 mmHg POC VBG HCO3 (22-29) mmol/L POC Venous O2 Sat % VBG Base Excess (-(2)-3) mmol/L POC FiO2 Sodium (136-145) mmol/L Potassium (3.5-5.1) mmol/L Chloride (98-107) mmol/L Carbon Dioxide (21-32) mmol/L POC Venous Total CO2 (23-30) mmol/L Anion Gap (5-15) mmol/L BUN (7-18) mg/dL Creatinine (0.55-1.02) mg/dL Est Cr Clr Drug Dosing Estimated GFR (MDRD) Glucose (70-99) mg/dL POC Glucose (70-99) mg/dL Hemoglobin A1c 11.0 H (<5.7) % Lactic Acid 4.0 H* (0.4-2.0) mmol/L Calcium (8.5-10.1) mg/dL Corrected Calcium (8.5-10.1) mg/dL Magnesium (1.8-2.4) mg/dL Total Bilirubin (0.2-1.0) mg/dL AST (15-37) U/L ALT (14-59) U/L Alkaline Phosphatase (46-116) U/L Lactate Dehydrogenase (81-234) U/L C-Reactive Protein (<=0.9) mg/dL Total Protein (6.4-8.2) g/dL Albumin (3.4-5.0) g/dL Globulin Albumin/Globulin Ratio Lipase (73-393) U/L Procalcitonin 1.28 H (0.1-0.50) ng/mL Urine Color (YELLOW) Urine Appearance (CLEAR) Urine pH (5.0-8.0) Ur Specific [place] Urine Protein (NEGATIVE) mg/dL Urine Glucose (UA) (NEGATIVE) mg/dL Urine Ketones (NEGATIVE) mg/dL Urine Occult Blood (NEGATIVE) Urine Nitrite (NEGATIVE) Urine Bilirubin (NEGATIVE) Urine Urobilinogen (0.2) EU/dL Ur Leukocyte Esterase (NEGATIVE) Urine RBC (NOT SEEN) /HPF Urine WBC (NOT SEEN) /HPF Ur Squamous Epith Cells (NOT SEEN) /HPF Amorphous Sediment Urine Bacteria (NOT SEEN) /HPF Urine Mucus (NOT SEEN) /LPF SARS CoV-2 RNA Rapid BERNADINE (NEGATIVE) Result Diagrams: 05/14/21 06:28 05/14/21 06:28 Sepsis Event Note - Evaluation Sepsis Screening Result: Possible Sepsis Risk - Focused Exam Vital Signs: Vital Signs Temp Temp Pulse Pulse Resp BP BP 05/14/21 08:28 96 143/58 H 05/14/21 05:42 36.6 C 95 16 05/14/21 00:55 36.4 C 92 16 139/58 L 05/13/21 23:30 36.1 C 100 16 145/65 H BP Pulse Ox 05/14/21 08:28 05/14/21 05:42 144/57 H 99 05/14/21 00:55 100 05/13/21 23:30 99 - Problem List & Annotations (1) Sepsis SNOMED Code(s): 65553371 Code(s): A41.9 - SEPSIS, UNSPECIFIED ORGANISM Status: Acute Current Visit: Yes Qualifiers: Sepsis type: sepsis due to unspecified organism Sepsis acute organ dysfunction status: with acute organ dysfunction Severe sepsis acute organ dysfunction type: acute renal failure Acute renal failure type: unspecified Severe sepsis shock status: without septic shock Qualified Code(s): A41.9 - Sepsis, unspecified organism; R65.20 - Severe sepsis without septic shock; N17.9 - Acute kidney failure, unspecified (2) Pyelonephritis SNOMED Code(s): 52288505 Code(s): N12 - TUBULO-INTERSTITIAL NEPHRITIS, NOT SPCF ACUTE OR CHRONIC Status: Acute Current Visit: No (3) TOMASA (acute kidney injury) SNOMED Code(s): 06175346, 11518280 Code(s): N17.9 - ACUTE KIDNEY FAILURE, UNSPECIFIED Status: Acute Current Visit: Yes (4) Dehydration, severe SNOMED Code(s): 593253847 Code(s): E86.0 - DEHYDRATION Status: Acute Current Visit: Yes (5) Pancreatitis SNOMED Code(s): 93888955 Code(s): K85.90 - ACUTE PANCREATITIS WITHOUT NECROSIS OR INFECTION, UNSP Status: Acute Current Visit: Yes Qualifiers: Chronicity: acute Pancreatitis type: unspecified pancreatitis type (6) Diabetes SNOMED Code(s): 82812965 Code(s): E11.9 - TYPE 2 DIABETES MELLITUS WITHOUT COMPLICATIONS Status: Chronic Current Visit: No Qualifiers: 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 use status Diabetes mellitus complication status: without complication Qualified Code(s): E11.9 - Type 2 diabetes mellitus without complications (7) Hyperglycemia due to type 2 diabetes mellitus SNOMED Code(s): 227333909409540, 641743066864192 Code(s): E11.65 - TYPE 2 DIABETES MELLITUS WITH HYPERGLYCEMIA Status: Acute Current Visit: Yes Qualifiers: Diabetes mellitus petroleum terminal plant operator insulin use: without chcf use Qualified Code(s): E11.65 - Type 2 diabetes mellitus with hyperglycemia (8) Hyponatremia SNOMED Code(s): 82123585 Code(s): E87.1 - HYPO-OSMOLALITY AND HYPONATREMIA Status: Acute Current Visit: Yes (9) Hyperlipidemia SNOMED Code(s): 06305267 Code(s): E78.5 - HYPERLIPIDEMIA, UNSPECIFIED Status: Chronic Current Visit: Yes Qualifiers: Hyperlipidemia type: unspecified Qualified Code(s): E78.5 - Hyperlipidemia, unspecified (10) Hypertension SNOMED Code(s): 53790220 Code(s): I10 - ESSENTIAL (PRIMARY) HYPERTENSION Status: Chronic Current Visit: Yes Qualifiers: Hypertension type: primary hypertension Qualified Code(s): I10 - Essential (primary) hypertension - Problem List Review Problem List Initiated/Reviewed/Updated: Yes - My Orders Last 24 Hours: My Active Orders 05/14/21 10:30 Heparin Sodium 5,000 units SUBCUT Q12H 05/14/21 14:00 BASIC METABOLIC PANEL,BMP [CHEM] Routine CBC WITH AUTO DIFF [HEME] Routine - Assessment Assessment:: 65 yo female hospital day #2 admitted with sepsis secondary to pyelonephritis, severe dehydration with TOMASA, and pancreatitis. Is feeling somewhat better today. Labs all trending in the right direction. Vitals are stable. - Plan Plan:: #1 Sepsis, secondary to #2 #2 Pyelonephritis - No s/s of any infection really. Patient has h/o the same with pyelonephritis and had a positive U/A. - BP is stable. HR <100. WBC downtrending. Afebrile overnight. - Therefore, continue ceftriaxone. - Urine and blood cultures pending. - Lactic acid elevated and is downtrending. Will check again this pm. - Patient also severely dehydrated on presentation. Will continue fluids at 200 cc/hr until labs this pm. #3 TOMASA #4 Severe dehydration - Creatinine severely elevated on admission, likely secondary to severe dehydration. - Is downtrending with fluid resuscitation. - Will continue 200/hr until labs this pm. - Patient can drink ad haley. #5 Acute pancreatitis - Likely at least in part related to her oral diabetes medications. Unclear whether the n/v is from pancreatitis or whether it is from the pyelo and possibly a contributor to the pancreatitis. - Regardless, lipase is downtrending. - Can do a low fat, low residue diet as tolerated. - Fluids as above. 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 #6 Hyperglycemia without DKA #7 Type 2 DM #8 Pseudohyponatremia, secondary to #6 - Glucoses have come down nicely with fluids and insulin. - AG elevated but more likely related to her TOMASA. No other evidence of DKA. Urine ketones pending. - Will continue low dose SSI only today. - Plan to add lantus starting tonight or tomorrow with dosing dependent on how much short acting insulin she requires today. - Holding all oral medications. Likely will be discharged on insulin only until her pancreas has recovered. - Will need close follow-up in the outpatient setting for medication adjustment. #9 Hyperlipidemia #10 Hypertension - Home meds held except metoprolol given TOMASA as above. - Will add back as indicated by BP and as allowed by creatinine. Patient will remain on acute today - anticipate admission for at least another 2 -3 days. Will need urine culture to guide oral antibiotics prior to d/c. Patient will also need to eat/drink well enough to stay hydrated. Heparin for VTE prophylaxis as lovenox is contraindicated with her renal function. Code status is full.
[2021-05-14] MEDS: Heparin Sodium 5,000 Units/ML Vial SUBCUT SCH ×2 (13:20→22:08)
[2021-05-14 14:26] LABS: ANION GAP 14.1 mmol/L (5-15)
[2021-05-14] MEDS ORDERED: Enoxaparin 30 MG/0.3 ML Syringe SUBCUT SCH (20:00)
[2021-05-14] MEDS: cefTRIAXone 2 GM Vial IVPUSH SCH (21:46)
[2021-05-15 07:18] LABS: ANION GAP 22.9 mmol/L (5-15)
[2021-05-15] MEDS: Calcium Carbonate/Vitamin D3 1250 MG-5 MCG Tab PO SCH ×2 (08:14→19:19)
[2021-05-15] MEDS: Aspirin 81 MG Tab.Chew PO SCH (08:14)
[2021-05-15] MEDS: Metoprolol Succinate 50 MG Tab.ER PO SCH (08:14)
[2021-05-15] MEDS: cefTRIAXone 2 GM Vial IVPUSH SCH (08:25)
--- NOTE | 2021-05-15 08:35 | PCM.PN ---
- General Info Date of Service: 05/15/21 Subjective Update: 65 yo female hospital day #3 admitted with sepsis secondary to pyelonephritis, pancreatitis, and severe dehydration with TOMASA. Patient states she is feeling a little better this morning. She did vomit this morning but feels that was because she drank too much with breakfast. Her appetite is improved and she ate more for breakfast today than she has for the past week. She is having normal bowel movements and passing gas. No abdominal pain. No fever. - Review of Systems General: Reports: No Symptoms HEENT: Reports: No Symptoms Pulmonary: Reports: No Symptoms Cardiovascular: Reports: No Symptoms Gastrointestinal: Reports: No Symptoms Genitourinary: Reports: No Symptoms Musculoskeletal: Reports: No Symptoms Skin: Reports: No Symptoms Neurological: Reports: No Symptoms - Patient Data Vitals - Most Recent: Last Vital Signs Temp 36.3 C 05/15/21 06:00 Pulse 96 05/15/21 08:14 Resp 16 05/15/21 06:00 BP 137/81 05/15/21 08:14 Pulse Ox 100 05/15/21 06:00 Weight - Most Recent: 66.224 kg I&O - Last 24 Hours: Intake & Output 05/14/21 05/15/21 05/15/21 22:59 06:59 14:59 Intake Total 1500 1265 Balance 1500 1265 Lab Results Last 24 Hours: Laboratory Results - last 24 hr 05/13/21 05/14/21 05/14/21 Range/Units 22:08 11:48 14:00 WBC 13.3 H (4.0-10.0) x10^3/uL RBC 3.90 L (4.00-5.50) x10^6/uL Hgb 11.8 L (12.0-16.0) g/dL Hct 33.0 (33.0-47.0) % MCV 84.6 (78.0-93.0) fL MCH 30.3 (26.0-32.0) pg MCHC 35.8 (32.0-36.0) g/dL RDW Coeff of Kris 12.3 (10.0-15.0) % Plt Count 462 H (130-400) x10^3/uL Immature Gran % (Auto) 0.30 (0.00-0.43) % Neut % (Auto) 91.1 H (50.0-80.0) % Lymph % (Auto) 4.2 L (25.0-50.0) % [place] % (Auto) 4.3 (2.0-11.0) % Eos % (Auto) 0.0 (0.0-4.0) % Baso % (Auto) 0.1 L (0.2-1.2) % Neut # (Auto) 12.1 H (1.8-7.7) x10^3/uL Lymph # (Auto) 0.6 L (1.0-4.8) x10^3/uL [place] # (Auto) 0.6 (0.0-0.8) x10^3/uL Eos # (Auto) 0.0 (0.0-0.5) x10^3/uL Baso # (Auto) 0.0 (0.0-0.2) x10^3/uL Immature Gran # (Auto) 0.04 (0.00-0.07) x10^3/uL Sodium (136-145) mmol/L Potassium (3.5-5.1) mmol/L Chloride (98-107) mmol/L Carbon Dioxide (21-32) mmol/L Anion Gap (5-15) mmol/L BUN (7-18) mg/dL Creatinine (0.55-1.02) mg/dL Est Cr Clr Drug Dosing mL/min Estimated GFR (MDRD) Glucose (70-99) mg/dL POC Glucose 271 H (70-99) mg/dL Lactic Acid (0.4-2.0) mmol/L Calcium (8.5-10.1) mg/dL Corrected Calcium (8.5-10.1) mg/dL Total Bilirubin (0.2-1.0) mg/dL AST (15-37) U/L ALT (14-59) U/L Alkaline Phosphatase (46-116) U/L Lactate Dehydrogenase (81-234) U/L C-Reactive Protein (<=0.9) mg/dL Total Protein (6.4-8.2) g/dL Albumin (3.4-5.0) g/dL Globulin Albumin/Globulin Ratio B-Hydroxybutyrate 4.4 H* (0.0-0.2) mmol/L 05/14/21 05/14/21 05/14/21 Range/Units 14:00 14:00 17:38 WBC (4.0-10.0) x10^3/uL RBC (4.00-5.50) x10^6/uL Hgb (12.0-16.0) g/dL Hct (33.0-47.0) % MCV (78.0-93.0) fL MCH (26.0-32.0) pg MCHC (32.0-36.0) g/dL RDW Coeff of Kris (10.0-15.0) % Plt Count (130-400) x10^3/uL Immature Gran % (Auto) (0.00-0.43) % Neut % (Auto) (50.0-80.0) % Lymph % (Auto) (25.0-50.0) % [place] % (Auto) (2.0-11.0) % Eos % (Auto) (0.0-4.0) % Baso % (Auto) (0.2-1.2) % Neut # (Auto) (1.8-7.7) x10^3/uL Lymph # (Auto) (1.0-4.8) x10^3/uL [place] # (Auto) (0.0-0.8) x10^3/uL Eos # (Auto) (0.0-0.5) x10^3/uL Baso # (Auto) (0.0-0.2) x10^3/uL Immature Gran # (Auto) (0.00-0.07) x10^3/uL Sodium 139 (136-145) mmol/L Potassium 4.1 (3.5-5.1) mmol/L Chloride 102 (98-107) mmol/L Carbon Dioxide 27 (21-32) mmol/L Anion Gap 14.1 (5-15) mmol/L BUN 93 H* (7-18) mg/dL Creatinine 6.0 H* (0.55-1.02) mg/dL Est Cr Clr Drug Dosing 8.63 mL/min Estimated GFR (MDRD) 7 Glucose 290 H (70-99) mg/dL POC Glucose 171 H (70-99) mg/dL Lactic Acid 1.8 (0.4-2.0) mmol/L Calcium 8.0 L (8.5-10.1) mg/dL Corrected Calcium (8.5-10.1) mg/dL Total Bilirubin (0.2-1.0) mg/dL AST (15-37) U/L ALT (14-59) U/L Alkaline Phosphatase (46-116) U/L Lactate Dehydrogenase (81-234) U/L C-Reactive Protein (<=0.9) mg/dL Total Protein (6.4-8.2) g/dL Albumin (3.4-5.0) g/dL Globulin Albumin/Globulin Ratio B-Hydroxybutyrate (0.0-0.2) mmol/L 05/15/21 05/15/21 05/15/21 Range/Units 06:24 06:24 06:24 WBC 9.7 (4.0-10.0) x10^3/uL RBC 3.52 L (4.00-5.50) x10^6/uL Hgb 10.6 L (12.0-16.0) g/dL Hct 30.7 L (33.0-47.0) % MCV 87.2 (78.0-93.0) fL MCH 30.1 (26.0-32.0) pg MCHC 34.5 (32.0-36.0) g/dL RDW Coeff of Kris 12.5 (10.0-15.0) % Plt Count 375 D (130-400) x10^3/uL Immature Gran % (Auto) 1.50 H (0.00-0.43) % Neut % (Auto) 86.2 H (50.0-80.0) % Lymph % (Auto) 6.2 L (25.0-50.0) % [place] % (Auto) 6.0 (2.0-11.0) % Eos % (Auto) 0.0 (0.0-4.0) % Baso % (Auto) 0.1 L (0.2-1.2) % Neut # (Auto) 8.4 H (1.8-7.7) x10^3/uL Lymph # (Auto) 0.6 L (1.0-4.8) x10^3/uL [place] # (Auto) 0.6 (0.0-0.8) x10^3/uL Eos # (Auto) 0.0 (0.0-0.5) x10^3/uL Baso # (Auto) 0.0 (0.0-0.2) x10^3/uL Immature Gran # (Auto) 0.15 H (0.00-0.07) x10^3/uL Sodium 142 (136-145) mmol/L Potassium 3.9 (3.5-5.1) mmol/L Chloride 105 (98-107) mmol/L Carbon Dioxide 18 L (21-32) mmol/L Anion Gap 22.9 H (5-15) mmol/L BUN 71 H* (7-18) mg/dL Creatinine 4.2 H* D (0.55-1.02) mg/dL Est Cr Clr Drug Dosing 12.33 mL/min Estimated GFR (MDRD) 11 Glucose 285 H (70-99) mg/dL POC Glucose (70-99) mg/dL Lactic Acid 1.1 (0.4-2.0) mmol/L Calcium 7.8 L (8.5-10.1) mg/dL Corrected Calcium 9.4 (8.5-10.1) mg/dL Total Bilirubin 0.3 (0.2-1.0) mg/dL AST 13 L (15-37) U/L ALT 9 L (14-59) U/L Alkaline Phosphatase 61 (46-116) U/L Lactate Dehydrogenase 174 (81-234) U/L C-Reactive Protein 45.1 H (<=0.9) mg/dL Total Protein 5.7 L (6.4-8.2) g/dL Albumin 2.0 L (3.4-5.0) g/dL Globulin 3.7 Albumin/Globulin Ratio 0.54 B-Hydroxybutyrate (0.0-0.2) mmol/L Stalin Results Last 24 Hours: Microbiology 05/13/21 22:58 Urine Culture - Final Urine, Voided Enterobacter Aerogenes 05/13/21 22:08 Aerobic Blood Culture - Preliminary Blood - Venous NO GROWTH AFTER 1 DAY Anaerobic Blood Culture - Preliminary Gram Negative Rods 05/13/21 22:15 Aerobic Blood Culture - Preliminary Blood - Venous - Lab Draw NO GROWTH AFTER 1 DAY Anaerobic Blood Culture - Preliminary NO GROWTH AFTER 1 DAY Med Orders - Current: Current Medications Acetaminophen (Acetaminophen 325 Mg Tab) 650 mg PO Q4H PRN PRN Reason: Pain (Mild 1-3)/fever Aspirin (Aspirin 81 Mg Tab.Chew) 81 mg PO DAILY [facility] Last Admin: 05/15/21 08:14 Dose: 81 mg Documented by: Calcium Carbonate (Calcium Carbonate/Vitamin D3 1250 Mg-5 Mcg Tab) 1 tab PO BIDMEALS [facility] Last Admin: 05/15/21 08:14 Dose: 1 tab Documented by: Ceftriaxone Sodium (Ceftriaxone 2 Gm Vial) 2 gm IVPUSH DAILY [facility] Last Admin: 05/14/21 21:46 Dose: 2 gm Documented by: Dextrose/Water (50% Dextrose In Water 50 Ml Syringe) 50 ml IVPUSH ASDIRECTED PRN PRN Reason: Hypoglycemia Glucagon (Glucagon,Human Recombinant 1 Mg Vial) 1 mg IM ASDIRECTED PRN PRN Reason: Hypoglycemia Heparin Sodium (Porcine) (Heparin Sodium 5,000 Units/Ml Vial) 5,000 units SUBCUT Q12H [facility] Last Admin: 05/14/21 22:08 Dose: 5,000 units Documented by: Sodium Chloride (Normal Saline) 1,000 mls @ 150 mls/hr IV ASDIRECTED [facility] Last Admin: 05/14/21 22:05 Dose: 150 mls/hr Documented by: Insulin Human Lispro (Insulin Lispro 100 Units/Ml 3 Ml Vial) 0 unit SUBCUT TIDMEALS [facility]; Protocol Last Admin: 05/14/21 18:30 Dose: 1 unit Documented by: Metoprolol Succinate (Metoprolol Succinate 50 Mg Tab.Er) 100 mg PO DAILY [facility] Last Admin: 05/15/21 08:14 Dose: 100 mg Documented by: Ondansetron HCl (Ondansetron 4 Mg/2 Ml Sdv) 4 mg IV Q6H PRN PRN Reason: Nausea/Vomiting Sodium Chloride (Sodium Chloride 0.9% 10 Ml Syringe) 10 ml FLUSH ASDIRECTED PRN PRN Reason: Keep Vein Open Discontinued Medications Ceftriaxone Sodium (Ceftriaxone 2 Gm Vial) 2 gm IVPUSH STAT ONE Stop: 05/13/21 22:29 Last Admin: 05/13/21 22:38 Dose: 2 gm Documented by: Enoxaparin Sodium (Enoxaparin 30 Mg/0.3 Ml Syringe) 30 mg SUBCUT DAILY@1999 [facility] Hydrochlorothiazide (Hydrochlorothiazide 25 Mg Tab) 25 mg PO DAILY [facility] Lactated Ringer's (Ringers, Lactated) 1,000 mls @ 999 mls/hr IV ONETIME ONE Stop: 05/13/21 23:06 Last Admin: 05/13/21 22:20 Dose: 999 mls/hr Documented by: Lactated Ringer's (Ringers, Lactated) 1,000 mls @ 999 mls/hr IV ONETIME ONE Stop: 05/13/21 23:50 Last Admin: 05/13/21 23:10 Dose: 999 mls/hr Documented by: Sodium Chloride (Normal Saline) 1,000 mls @ 500 mls/hr IV ASDIRECTED [facility] Sodium Chloride (Normal Saline) 1,000 mls @ 150 mls/hr IV ASDIRECTED [facility] Last Admin: 05/14/21 10:47 Dose: 200 mls/hr Documented by: Sodium Chloride (Normal Saline) 1,000 mls @ 500 mls/hr IV ASDIRECTED [facility] Last Admin: 05/14/21 00:35 Dose: 500 mls/hr Documented by: Insulin Human Regular (Insulin Regular, Human 100 Units/Ml 3 Ml Vial) 5 unit SUBCUT NOW STA Stop: 05/13/21 23:13 Last Admin: 05/13/21 23:21 Dose: 5 units Documented by: Ondansetron HCl (Ondansetron 4 Mg/2 Ml Sdv) 4 mg IV ONETIME ONE Stop: 05/13/21 22:07 Last Admin: 05/13/21 22:25 Dose: 4 mg Documented by: - Exam General: Alert, Oriented, Cooperative, No Acute Distress HEENT: Mucous Membr. Moist/[place] Neck: Supple, Trachea Midline, No Thyromegaly. No: Lymphadenopathy Lungs: Clear to Auscultation, Normal Respiratory Effort Cardiovascular: Regular Rate, Regular Rhythm, No Murmurs GI/Abdominal Exam: Normal Bowel Sounds, Soft, Non-Tender, No Organomegaly, No Distention, No Mass Extremities: Normal Inspection, Normal Range of Motion, No Pedal Edema, Normal Capillary Refill Peripheral Pulses: 2+: Radial (L), Radial (R) Skin: Warm, Dry, Intact Neurological: No New Focal Deficit - Patient Data Lab Results Last 24 hrs: Laboratory Results - last 24 hr 05/13/21 05/14/21 05/14/21 Range/Units 22:08 11:48 14:00 WBC 13.3 H (4.0-10.0) x10^3/uL RBC 3.90 L (4.00-5.50) x10^6/uL Hgb 11.8 L (12.0-16.0) g/dL Hct 33.0 (33.0-47.0) % MCV 84.6 (78.0-93.0) fL MCH 30.3 (26.0-32.0) pg MCHC 35.8 (32.0-36.0) g/dL RDW Coeff of Kris 12.3 (10.0-15.0) % Plt Count 462 H (130-400) x10^3/uL Immature Gran % (Auto) 0.30 (0.00-0.43) % Neut % (Auto) 91.1 H (50.0-80.0) % Lymph % (Auto) 4.2 L (25.0-50.0) % [place] % (Auto) 4.3 (2.0-11.0) % Eos % (Auto) 0.0 (0.0-4.0) % Baso % (Auto) 0.1 L (0.2-1.2) % Neut # (Auto) 12.1 H (1.8-7.7) x10^3/uL Lymph # (Auto) 0.6 L (1.0-4.8) x10^3/uL [place] # (Auto) 0.6 (0.0-0.8) x10^3/uL Eos # (Auto) 0.0 (0.0-0.5) x10^3/uL Baso # (Auto) 0.0 (0.0-0.2) x10^3/uL Immature Gran # (Auto) 0.04 (0.00-0.07) x10^3/uL Sodium (136-145) mmol/L Potassium (3.5-5.1) mmol/L Chloride (98-107) mmol/L Carbon Dioxide (21-32) mmol/L Anion Gap (5-15) mmol/L BUN (7-18) mg/dL Creatinine (0.55-1.02) mg/dL Est Cr Clr Drug Dosing mL/min Estimated GFR (MDRD) Glucose (70-99) mg/dL POC Glucose 271 H (70-99) mg/dL Lactic Acid (0.4-2.0) mmol/L Calcium (8.5-10.1) mg/dL Corrected Calcium (8.5-10.1) mg/dL Total Bilirubin (0.2-1.0) mg/dL AST (15-37) U/L ALT (14-59) U/L Alkaline Phosphatase (46-116) U/L Lactate Dehydrogenase (81-234) U/L C-Reactive Protein (<=0.9) mg/dL Total Protein (6.4-8.2) g/dL Albumin (3.4-5.0) g/dL Globulin Albumin/Globulin Ratio B-Hydroxybutyrate 4.4 H* (0.0-0.2) mmol/L 05/14/21 05/14/21 05/14/21 Range/Units 14:00 14:00 17:38 WBC (4.0-10.0) x10^3/uL RBC (4.00-5.50) x10^6/uL Hgb (12.0-16.0) g/dL Hct (33.0-47.0) % MCV (78.0-93.0) fL MCH (26.0-32.0) pg MCHC (32.0-36.0) g/dL RDW Coeff of Kris (10.0-15.0) % Plt Count (130-400) x10^3/uL Immature Gran % (Auto) (0.00-0.43) % Neut % (Auto) (50.0-80.0) % Lymph % (Auto) (25.0-50.0) % [place] % (Auto) (2.0-11.0) % Eos % (Auto) (0.0-4.0) % Baso % (Auto) (0.2-1.2) % Neut # (Auto) (1.8-7.7) x10^3/uL Lymph # (Auto) (1.0-4.8) x10^3/uL [place] # (Auto) (0.0-0.8) x10^3/uL Eos # (Auto) (0.0-0.5) x10^3/uL Baso # (Auto) (0.0-0.2) x10^3/uL Immature Gran # (Auto) (0.00-0.07) x10^3/uL Sodium 139 (136-145) mmol/L Potassium 4.1 (3.5-5.1) mmol/L Chloride 102 (98-107) mmol/L Carbon Dioxide 27 (21-32) mmol/L Anion Gap 14.1 (5-15) mmol/L BUN 93 H* (7-18) mg/dL Creatinine 6.0 H* (0.55-1.02) mg/dL Est Cr Clr Drug Dosing 8.63 mL/min Estimated GFR (MDRD) 7 Glucose 290 H (70-99) mg/dL POC Glucose 171 H (70-99) mg/dL Lactic Acid 1.8 (0.4-2.0) mmol/L Calcium 8.0 L (8.5-10.1) mg/dL Corrected Calcium (8.5-10.1) mg/dL Total Bilirubin (0.2-1.0) mg/dL AST (15-37) U/L ALT (14-59) U/L Alkaline Phosphatase (46-116) U/L Lactate Dehydrogenase (81-234) U/L C-Reactive Protein (<=0.9) mg/dL Total Protein (6.4-8.2) g/dL Albumin (3.4-5.0) g/dL Globulin Albumin/Globulin Ratio B-Hydroxybutyrate (0.0-0.2) mmol/L 05/15/21 05/15/21 05/15/21 Range/Units 06:24 06:24 06:24 WBC 9.7 (4.0-10.0) x10^3/uL RBC 3.52 L (4.00-5.50) x10^6/uL Hgb 10.6 L (12.0-16.0) g/dL Hct 30.7 L (33.0-47.0) % MCV 87.2 (78.0-93.0) fL MCH 30.1 (26.0-32.0) pg MCHC 34.5 (32.0-36.0) g/dL RDW Coeff of Kris 12.5 (10.0-15.0) % Plt Count 375 D (130-400) x10^3/uL Immature Gran % (Auto) 1.50 H (0.00-0.43) % Neut % (Auto) 86.2 H (50.0-80.0) % Lymph % (Auto) 6.2 L (25.0-50.0) % [place] % (Auto) 6.0 (2.0-11.0) % Eos % (Auto) 0.0 (0.0-4.0) % Baso % (Auto) 0.1 L (0.2-1.2) % Neut # (Auto) 8.4 H (1.8-7.7) x10^3/uL Lymph # (Auto) 0.6 L (1.0-4.8) x10^3/uL [place] # (Auto) 0.6 (0.0-0.8) x10^3/uL Eos # (Auto) 0.0 (0.0-0.5) x10^3/uL Baso # (Auto) 0.0 (0.0-0.2) x10^3/uL Immature Gran # (Auto) 0.15 H (0.00-0.07) x10^3/uL Sodium 142 (136-145) mmol/L Potassium 3.9 (3.5-5.1) mmol/L Chloride 105 (98-107) mmol/L Carbon Dioxide 18 L (21-32) mmol/L Anion Gap 22.9 H (5-15) mmol/L BUN 71 H* (7-18) mg/dL Creatinine 4.2 H* D (0.55-1.02) mg/dL Est Cr Clr Drug Dosing 12.33 mL/min Estimated GFR (MDRD) 11 Glucose 285 H (70-99) mg/dL POC Glucose (70-99) mg/dL Lactic Acid 1.1 (0.4-2.0) mmol/L Calcium 7.8 L (8.5-10.1) mg/dL Corrected Calcium 9.4 (8.5-10.1) mg/dL Total Bilirubin 0.3 (0.2-1.0) mg/dL AST 13 L (15-37) U/L ALT 9 L (14-59) U/L Alkaline Phosphatase 61 (46-116) U/L Lactate Dehydrogenase 174 (81-234) U/L C-Reactive Protein 45.1 H (<=0.9) mg/dL Total Protein 5.7 L (6.4-8.2) g/dL Albumin 2.0 L (3.4-5.0) g/dL Globulin 3.7 Albumin/Globulin Ratio 0.54 B-Hydroxybutyrate (0.0-0.2) mmol/L Result Diagrams: 05/15/21 06:24 05/15/21 06:24 Stalin Results Last 24 hrs: Microbiology 05/13/21 22:58 Urine Culture - Final Urine, Voided Enterobacter Aerogenes 05/13/21 22:08 Aerobic Blood Culture - Preliminary Blood - Venous NO GROWTH AFTER 1 DAY Anaerobic Blood Culture - Preliminary Gram Negative Rods 05/13/21 22:15 Aerobic Blood Culture - Preliminary Blood - Venous - Lab Draw NO GROWTH AFTER 1 DAY Anaerobic Blood Culture - Preliminary NO GROWTH AFTER 1 DAY Sepsis Event Note - Evaluation Sepsis Screening Result: Severe Sepsis Risk - Focused Exam Vital Signs: Vital Signs Temp Pulse Pulse Resp BP BP Pulse Ox 05/15/21 08:14 96 137/81 05/15/21 06:00 36.3 C 95 16 150/61 H 100 - Problem List & Annotations (1) Sepsis SNOMED Code(s): 08920489 Code(s): A41.9 - SEPSIS, UNSPECIFIED ORGANISM Status: Acute Current Visit: Yes Qualifiers: Sepsis type: sepsis due to unspecified organism Sepsis acute organ dysfunction status: with acute organ dysfunction Severe sepsis acute organ dysfunction type: acute renal failure Acute renal failure type: unspecified Severe sepsis shock status: without septic shock Qualified Code(s): A41.9 - Sepsis, unspecified organism; R65.20 - Severe sepsis without septic shock; N17.9 - Acute kidney failure, unspecified (2) Pyelonephritis SNOMED Code(s): 36576993 Code(s): N12 - TUBULO-INTERSTITIAL NEPHRITIS, NOT SPCF ACUTE OR CHRONIC Status: Acute Current Visit: No (3) TOMASA (acute kidney injury) SNOMED Code(s): 68113340, 30983711 Code(s): N17.9 - ACUTE KIDNEY FAILURE, UNSPECIFIED Status: Acute Current Visit: Yes (4) Dehydration, severe SNOMED Code(s): 322879086 Code(s): E86.0 - DEHYDRATION Status: Acute Current Visit: Yes (5) Pancreatitis SNOMED Code(s): 43662258 Code(s): K85.90 - ACUTE PANCREATITIS WITHOUT NECROSIS OR INFECTION, UNSP Status: Acute Current Visit: Yes Qualifiers: Chronicity: acute Pancreatitis type: unspecified pancreatitis type (6) Diabetes SNOMED Code(s): 73060809 Code(s): E11.9 - TYPE 2 DIABETES MELLITUS WITHOUT COMPLICATIONS Status: Chronic Current Visit: No Qualifiers: Diabetes mellitus type: type 2 Diabetes mellitus detention insulin use: unspecified detention insulin use status Diabetes mellitus complication status: without complication Qualified Code(s): E11.9 - Type 2 diabetes mellitus without complications (7) Hyperglycemia due to type 2 diabetes mellitus SNOMED Code(s): 097183355548384, 805117854000069 Code(s): E11.65 - TYPE 2 DIABETES MELLITUS WITH HYPERGLYCEMIA Status: Acute Current Visit: Yes Qualifiers: 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 use Qualified Code(s): E11.65 - Type 2 diabetes mellitus with hyperglycemia (8) Hyponatremia SNOMED Code(s): 98105186 Code(s): E87.1 - HYPO-OSMOLALITY AND HYPONATREMIA Status: Acute Current Visit: Yes (9) Hyperlipidemia SNOMED Code(s): 51008415 Code(s): E78.5 - HYPERLIPIDEMIA, UNSPECIFIED Status: Chronic Current Visit: Yes Qualifiers: Hyperlipidemia type: unspecified Qualified Code(s): E78.5 - Hyperlipidemia, unspecified (10) Hypertension SNOMED Code(s): 41271088 Code(s): I10 - ESSENTIAL (PRIMARY) HYPERTENSION Status: Chronic Current Visit: Yes Qualifiers: Hypertension type: primary hypertension Qualified Code(s): I10 - Essential (primary) hypertension - Problem List Review Problem List Initiated/Reviewed/Updated: Yes - My Orders Last 24 Hours: My Active Orders 05/14/21 10:30 Heparin Sodium 5,000 units SUBCUT Q12H 05/14/21 15:51 Sodium Chloride 0.9% [Normal Saline] 1,000 ml IV ASDIRECTED - Assessment Assessment:: 65 yo female hospital day #3 admitted with sepsis secondary to pyelonephritis, severe dehydration with TOMASA, and pancreatitis. Is feeling somewhat better today. Labs all trending in the right direction. Vitals are stable. - Plan Plan:: #1 Sepsis, secondary to #2 #2 Pyelonephritis - Doing better today. - Vitals stable. WBC back to normal. - Therefore, continue ceftriaxone. - Urine and blood cultures growing gram negative rods. Final report pending. - Lactic acid back to normal as of yesterday pm and remains normal this am. Will d/c daily checks. - Continue fluids at 125 cc/hr. #3 TOMASA #4 Severe dehydration - Creatinine severely elevated on admission, likely secondary to severe dehydration. - Is downtrending nicely. - Will continue 125/hr. - Recheck labs in the am. - Patient can drink ad haley. #5 Acute pancreatitis - Cause is multifactorial. - Continue low fat, low residue, ADA diet as tolerated. - Fluids as above. - No further rechecks on her lipase as it will not spinning frame changer. #6 Hyperglycemia without DKA #7 Type 2 DM #8 Pseudohyponatremia, secondary to #6 - Glucoses have come down nicely with fluids and insulin. - BHB was elevated. However, gap was back to normal as of yesterday afternoon. Is back up today but suspect this is more renally related. - Will add lantus at bedtime and continue low dose SSI with meals. - Holding all oral medications. Likely will be discharged on insulin and metformin only until her pancreas has recovered. - Will need close follow-up in the outpatient setting for medication adjustment. #9 Hyperlipidemia #10 Hypertension - Home meds held except metoprolol given TOMASA as above. - Will add back as indicated by BP and as allowed by creatinine. Patient will remain on acute today - anticipate that she will remain admitted at least until Tuesday, possibly through the weekend. No major changes in management plan today. Will need urine culture to guide oral antibiotics prior to d/c. Patient will also need to eat/drink well enough to stay hydrated. Heparin for VTE prophylaxis as lovenox is contraindicated with her renal function. Code status is full.
[2021-05-15] MEDS: Insulin Lispro 100 Units/ML 3 ML Vial SUBCUT SCH ×3 (08:38→17:49)
[2021-05-15] MEDS: Ondansetron 4 MG/2 ML SDV IV PRN ×2 (12:19→17:48)
[2021-05-15] MEDS: Heparin Sodium 5,000 Units/ML Vial SUBCUT SCH ×2 (12:21→23:28)
[2021-05-15] MEDS ORDERED: Insulin Glarg,Human.Rec.Analog 100 Unit/ML SUBCUT SCH (20:00)
[2021-05-16] MEDS: Aspirin 81 MG Tab.Chew PO SCH (08:26)
[2021-05-16] MEDS: Metoprolol Succinate 50 MG Tab.ER PO SCH (08:26)
[2021-05-16] MEDS: Insulin Lispro 100 Units/ML 3 ML Vial SUBCUT SCH ×3 (08:31→18:57)
[2021-05-16] MEDS: Calcium Carbonate/Vitamin D3 1250 MG-5 MCG Tab PO SCH ×2 (08:31→17:39)
[2021-05-16 08:32] LABS: ANION GAP 16.4 mmol/L (5-15)
[2021-05-16] MEDS: cefTRIAXone 2 GM Vial IVPUSH SCH (08:36)
[2021-05-16] MEDS ORDERED: Levofloxacin 500 MG Tab PO ONE (09:32)
--- NOTE | 2021-05-16 09:44 | PCM.PN ---
- General Info Date of Service: 05/16/21 Subjective Update: 65 yo female hospital day #4 admitted with sepsis secondary to pyelonephritis, pancreatitis, and TOMASA from severe dehydration. Patient is feeling better this morning. Ate jello for breakfast without any issues. Denies any nausea or vomiting this morning. Took zofran twice yesterday. Is voiding frequently without dysuria. No fever or chills. Has walked in her room but not yet in the hallways. - Review of Systems General: Reports: No Symptoms HEENT: Reports: No Symptoms Pulmonary: Reports: No Symptoms Cardiovascular: Reports: No Symptoms Gastrointestinal: Reports: No Symptoms Genitourinary: Reports: No Symptoms Musculoskeletal: Reports: No Symptoms Skin: Reports: No Symptoms Neurological: Reports: No Symptoms - Patient Data Vitals - Most Recent: Last Vital Signs Temp 37.0 C 05/16/21 07:01 Pulse 87 05/16/21 08:26 Resp 16 05/16/21 07:01 BP 162/72 H 05/16/21 08:26 Pulse Ox 98 05/16/21 07:01 Weight - Most Recent: 65.544 kg I&O - Last 24 Hours: Intake & Output 05/15/21 05/16/21 05/16/21 22:59 06:59 14:59 Intake Total 400 Balance 400 Lab Results Last 24 Hours: Laboratory Results - last 24 hr 05/15/21 05/15/21 05/15/21 Range/Units 11:40 17:45 21:10 WBC (4.0-10.0) x10^3/uL RBC (4.00-5.50) x10^6/uL Hgb (12.0-16.0) g/dL Hct (33.0-47.0) % MCV (78.0-93.0) fL MCH (26.0-32.0) pg MCHC (32.0-36.0) g/dL RDW Coeff of Kris (10.0-15.0) % Plt Count (130-400) x10^3/uL Immature Gran % (Auto) (0.00-0.43) % Neut % (Auto) (50.0-80.0) % Lymph % (Auto) (25.0-50.0) % Ransom % (Auto) (2.0-11.0) % Eos % (Auto) (0.0-4.0) % Baso % (Auto) (0.2-1.2) % Neut # (Auto) (1.8-7.7) x10^3/uL Lymph # (Auto) (1.0-4.8) x10^3/uL Ransom # (Auto) (0.0-0.8) x10^3/uL Eos # (Auto) (0.0-0.5) x10^3/uL Baso # (Auto) (0.0-0.2) x10^3/uL Immature Gran # (Auto) (0.00-0.07) x10^3/uL Sodium (136-145) mmol/L Potassium (3.5-5.1) mmol/L Chloride (98-107) mmol/L Carbon Dioxide (21-32) mmol/L Anion Gap (5-15) mmol/L BUN (7-18) mg/dL Creatinine (0.55-1.02) mg/dL Est Cr Clr Drug Dosing mL/min Estimated GFR (MDRD) Glucose (70-99) mg/dL POC Glucose 332 H 268 H 231 H (70-99) mg/dL Calcium (8.5-10.1) mg/dL Corrected Calcium (8.5-10.1) mg/dL Total Bilirubin (0.2-1.0) mg/dL AST (15-37) U/L ALT (14-59) U/L Alkaline Phosphatase (46-116) U/L C-Reactive Protein (<=0.9) mg/dL Total Protein (6.4-8.2) g/dL Albumin (3.4-5.0) g/dL Globulin Albumin/Globulin Ratio 05/16/21 05/16/21 05/16/21 Range/Units 07:39 07:40 07:40 WBC 6.7 (4.0-10.0) x10^3/uL RBC 3.54 L (4.00-5.50) x10^6/uL Hgb 10.7 L (12.0-16.0) g/dL Hct 30.6 L (33.0-47.0) % MCV 86.4 (78.0-93.0) fL MCH 30.2 (26.0-32.0) pg MCHC 35.0 (32.0-36.0) g/dL RDW Coeff of Kris 12.4 (10.0-15.0) % Plt Count 348 (130-400) x10^3/uL Immature Gran % (Auto) 1.90 H (0.00-0.43) % Neut % (Auto) 81.3 H (50.0-80.0) % Lymph % (Auto) 9.4 L (25.0-50.0) % Ransom % (Auto) 7.2 (2.0-11.0) % Eos % (Auto) 0.1 (0.0-4.0) % Baso % (Auto) 0.1 L (0.2-1.2) % Neut # (Auto) 5.4 (1.8-7.7) x10^3/uL Lymph # (Auto) 0.6 L (1.0-4.8) x10^3/uL Ransom # (Auto) 0.5 (0.0-0.8) x10^3/uL Eos # (Auto) 0.0 (0.0-0.5) x10^3/uL Baso # (Auto) 0.0 (0.0-0.2) x10^3/uL Immature Gran # (Auto) 0.13 H (0.00-0.07) x10^3/uL Sodium 144 (136-145) mmol/L Potassium 3.4 L (3.5-5.1) mmol/L Chloride 105 (98-107) mmol/L Carbon Dioxide 26 (21-32) mmol/L Anion Gap 16.4 H (5-15) mmol/L BUN 44 H D (7-18) mg/dL Creatinine 2.9 H D (0.55-1.02) mg/dL Est Cr Clr Drug Dosing 17.86 mL/min Estimated GFR (MDRD) 16 Glucose 391 H (70-99) mg/dL POC Glucose 344 H (70-99) mg/dL Calcium 8.2 L (8.5-10.1) mg/dL Corrected Calcium 9.8 (8.5-10.1) mg/dL Total Bilirubin 0.2 (0.2-1.0) mg/dL AST 15 (15-37) U/L ALT 12 L (14-59) U/L Alkaline Phosphatase 63 (46-116) U/L C-Reactive Protein 17.8 H (<=0.9) mg/dL Total Protein 5.8 L (6.4-8.2) g/dL Albumin 2.0 L (3.4-5.0) g/dL Globulin 3.8 Albumin/Globulin Ratio 0.53 Stalin Results Last 24 Hours: Microbiology 05/13/21 22:15 Aerobic Blood Culture - Preliminary Blood - Venous - Lab Draw NO GROWTH AFTER 2 DAYS Anaerobic Blood Culture - Preliminary NO GROWTH AFTER 2 DAYS 05/13/21 22:08 Aerobic Blood Culture - Preliminary Blood - Venous NO GROWTH AFTER 2 DAYS Anaerobic Blood Culture - Final Enterobacter Aerogenes 05/13/21 22:58 Urine Culture - Final Urine, Voided Enterobacter Aerogenes Med Orders - Current: Current Medications Acetaminophen (Acetaminophen 325 Mg Tab) 650 mg PO Q4H PRN PRN Reason: Pain (Mild 1-3)/fever Aspirin (Aspirin 81 Mg Tab.Chew) 81 mg PO DAILY [facility] Last Admin: 05/16/21 08:26 Dose: 81 mg Documented by: Calcium Carbonate (Calcium Carbonate/Vitamin D3 1250 Mg-5 Mcg Tab) 1 tab PO BIDMEALS [facility] Last Admin: 05/16/21 08:31 Dose: 1 tab Documented by: Dextrose/Water (50% Dextrose In Water 50 Ml Syringe) 50 ml IVPUSH ASDIRECTED PRN PRN Reason: Hypoglycemia Glucagon (Glucagon,Human Recombinant 1 Mg Vial) 1 mg IM ASDIRECTED PRN PRN Reason: Hypoglycemia Heparin Sodium (Porcine) (Heparin Sodium 5,000 Units/Ml Vial) 5,000 units SUBCUT Q12H [facility] Last Admin: 05/15/21 23:28 Dose: 5,000 units Documented by: Insulin Glargine (Insulin Glarg,Human.Rec.Analog 100 Unit/Ml) 10 unit SUBCUT BEDTIME [facility] Insulin Human Lispro (Insulin Lispro 100 Units/Ml 3 Ml Vial) 0 unit SUBCUT TIDMEALS [facility]; Protocol Last Admin: 05/16/21 08:31 Dose: 4 unit Documented by: Metoprolol Succinate (Metoprolol Succinate 50 Mg Tab.Er) 100 mg PO DAILY [facility] Last Admin: 05/16/21 08:26 Dose: 100 mg Documented by: Ondansetron HCl (Ondansetron 4 Mg Tab.Dis) 4 mg PO Q8H PRN PRN Reason: Nausea/Vomiting Sodium Chloride (Sodium Chloride 0.9% 10 Ml Syringe) 10 ml FLUSH ASDIRECTED PRN PRN Reason: Keep Vein Open Discontinued Medications Ceftriaxone Sodium (Ceftriaxone 2 Gm Vial) 2 gm IVPUSH STAT ONE Stop: 05/13/21 22:29 Last Admin: 05/13/21 22:38 Dose: 2 gm Documented by: Ceftriaxone Sodium (Ceftriaxone 2 Gm Vial) 2 gm IVPUSH DAILY [facility] Last Admin: 05/16/21 08:36 Dose: 2 gm Documented by: Enoxaparin Sodium (Enoxaparin 30 Mg/0.3 Ml Syringe) 30 mg SUBCUT DAILY@1999 [facility] Hydrochlorothiazide (Hydrochlorothiazide 25 Mg Tab) 25 mg PO DAILY [facility] Lactated Ringer's (Ringers, Lactated) 1,000 mls @ 999 mls/hr IV ONETIME ONE Stop: 05/13/21 23:06 Last Admin: 05/13/21 22:20 Dose: 999 mls/hr Documented by: Lactated Ringer's (Ringers, Lactated) 1,000 mls @ 999 mls/hr IV ONETIME ONE Stop: 05/13/21 23:50 Last Admin: 05/13/21 23:10 Dose: 999 mls/hr Documented by: Sodium Chloride (Normal Saline) 1,000 mls @ 500 mls/hr IV ASDIRECTED [facility] Sodium Chloride (Normal Saline) 1,000 mls @ 150 mls/hr IV ASDIRECTED [facility] Last Admin: 05/14/21 10:47 Dose: 200 mls/hr Documented by: Sodium Chloride (Normal Saline) 1,000 mls @ 500 mls/hr IV ASDIRECTED [facility] Last Admin: 05/14/21 00:35 Dose: 500 mls/hr Documented by: Sodium Chloride (Normal Saline) 1,000 mls @ 125 mls/hr IV ASDIRECTED [facility] Last Admin: 05/14/21 22:05 Dose: 150 mls/hr Documented by: Insulin Glargine (Insulin Glarg,Human.Rec.Analog 100 Unit/Ml) 8 unit SUBCUT BEDTIME [facility] Last Admin: 05/15/21 21:10 Dose: 8 unit Documented by: Insulin Human Regular (Insulin Regular, Human 100 Units/Ml 3 Ml Vial) 5 unit SUBCUT NOW STA Stop: 05/13/21 23:13 Last Admin: 05/13/21 23:21 Dose: 5 units Documented by: Levofloxacin (Levofloxacin 500 Mg Tab) 750 mg PO ONETIME ONE Stop: 05/16/21 09:33 Ondansetron HCl (Ondansetron 4 Mg/2 Ml Sdv) 4 mg IV ONETIME ONE Stop: 05/13/21 22:07 Last Admin: 05/13/21 22:25 Dose: 4 mg Documented by: Ondansetron HCl (Ondansetron 4 Mg/2 Ml Sdv) 4 mg IV Q6H PRN PRN Reason: Nausea/Vomiting Last Admin: 05/15/21 17:48 Dose: 4 mg Documented by: - Exam General: Alert, Cooperative, No Acute Distress HEENT: Mucous Membr. Moist/Biddle Neck: Supple, Trachea Midline, No Thyromegaly. No: Lymphadenopathy Lungs: Clear to Auscultation, Normal Respiratory Effort Cardiovascular: Regular Rate, Regular Rhythm, No Murmurs GI/Abdominal Exam: Normal Bowel Sounds, Soft, Non-Tender, No Organomegaly, No Distention, No Mass Extremities: Normal Inspection, Non-Tender, No Pedal Edema, Normal Capillary Refill Peripheral Pulses: 2+: Radial (L), Radial (R) Skin: Warm, Dry, Intact Neurological: No New Focal Deficit - Patient Data Lab Results Last 24 hrs: Laboratory Results - last 24 hr 05/15/21 05/15/21 05/15/21 Range/Units 11:40 17:45 21:10 WBC (4.0-10.0) x10^3/uL RBC (4.00-5.50) x10^6/uL Hgb (12.0-16.0) g/dL Hct (33.0-47.0) % MCV (78.0-93.0) fL MCH (26.0-32.0) pg MCHC (32.0-36.0) g/dL RDW Coeff of Kris (10.0-15.0) % Plt Count (130-400) x10^3/uL Immature Gran % (Auto) (0.00-0.43) % Neut % (Auto) (50.0-80.0) % Lymph % (Auto) (25.0-50.0) % Ransom % (Auto) (2.0-11.0) % Eos % (Auto) (0.0-4.0) % Baso % (Auto) (0.2-1.2) % Neut # (Auto) (1.8-7.7) x10^3/uL Lymph # (Auto) (1.0-4.8) x10^3/uL Ransom # (Auto) (0.0-0.8) x10^3/uL Eos # (Auto) (0.0-0.5) x10^3/uL Baso # (Auto) (0.0-0.2) x10^3/uL Immature Gran # (Auto) (0.00-0.07) x10^3/uL Sodium (136-145) mmol/L Potassium (3.5-5.1) mmol/L Chloride (98-107) mmol/L Carbon Dioxide (21-32) mmol/L Anion Gap (5-15) mmol/L BUN (7-18) mg/dL Creatinine (0.55-1.02) mg/dL Est Cr Clr Drug Dosing mL/min Estimated GFR (MDRD) Glucose (70-99) mg/dL POC Glucose 332 H 268 H 231 H (70-99) mg/dL Calcium (8.5-10.1) mg/dL Corrected Calcium (8.5-10.1) mg/dL Total Bilirubin (0.2-1.0) mg/dL AST (15-37) U/L ALT (14-59) U/L Alkaline Phosphatase (46-116) U/L C-Reactive Protein (<=0.9) mg/dL Total Protein (6.4-8.2) g/dL Albumin (3.4-5.0) g/dL Globulin Albumin/Globulin Ratio 05/16/21 05/16/21 05/16/21 Range/Units 07:39 07:40 07:40 WBC 6.7 (4.0-10.0) x10^3/uL RBC 3.54 L (4.00-5.50) x10^6/uL Hgb 10.7 L (12.0-16.0) g/dL Hct 30.6 L (33.0-47.0) % MCV 86.4 (78.0-93.0) fL MCH 30.2 (26.0-32.0) pg MCHC 35.0 (32.0-36.0) g/dL RDW Coeff of Kris 12.4 (10.0-15.0) % Plt Count 348 (130-400) x10^3/uL Immature Gran % (Auto) 1.90 H (0.00-0.43) % Neut % (Auto) 81.3 H (50.0-80.0) % Lymph % (Auto) 9.4 L (25.0-50.0) % Ransom % (Auto) 7.2 (2.0-11.0) % Eos % (Auto) 0.1 (0.0-4.0) % Baso % (Auto) 0.1 L (0.2-1.2) % Neut # (Auto) 5.4 (1.8-7.7) x10^3/uL Lymph # (Auto) 0.6 L (1.0-4.8) x10^3/uL Ransom # (Auto) 0.5 (0.0-0.8) x10^3/uL Eos # (Auto) 0.0 (0.0-0.5) x10^3/uL Baso # (Auto) 0.0 (0.0-0.2) x10^3/uL Immature Gran # (Auto) 0.13 H (0.00-0.07) x10^3/uL Sodium 144 (136-145) mmol/L Potassium 3.4 L (3.5-5.1) mmol/L Chloride 105 (98-107) mmol/L Carbon Dioxide 26 (21-32) mmol/L Anion Gap 16.4 H (5-15) mmol/L BUN 44 H D (7-18) mg/dL Creatinine 2.9 H D (0.55-1.02) mg/dL Est Cr Clr Drug Dosing 17.86 mL/min Estimated GFR (MDRD) 16 Glucose 391 H (70-99) mg/dL POC Glucose 344 H (70-99) mg/dL Calcium 8.2 L (8.5-10.1) mg/dL Corrected Calcium 9.8 (8.5-10.1) mg/dL Total Bilirubin 0.2 (0.2-1.0) mg/dL AST 15 (15-37) U/L ALT 12 L (14-59) U/L Alkaline Phosphatase 63 (46-116) U/L C-Reactive Protein 17.8 H (<=0.9) mg/dL Total Protein 5.8 L (6.4-8.2) g/dL Albumin 2.0 L (3.4-5.0) g/dL Globulin 3.8 Albumin/Globulin Ratio 0.53 Result Diagrams: 05/16/21 07:40 05/16/21 07:40 Stalin Results Last 24 hrs: Microbiology 05/13/21 22:15 Aerobic Blood Culture - Preliminary Blood - Venous - Lab Draw NO GROWTH AFTER 2 DAYS Anaerobic Blood Culture - Preliminary NO GROWTH AFTER 2 DAYS 05/13/21 22:08 Aerobic Blood Culture - Preliminary Blood - Venous NO GROWTH AFTER 2 DAYS Anaerobic Blood Culture - Final Enterobacter Aerogenes 05/13/21 22:58 Urine Culture - Final Urine, Voided Enterobacter Aerogenes Sepsis Event Note - Evaluation Sepsis Screening Result: Possible Sepsis Risk - Focused Exam Vital Signs: Vital Signs Temp Pulse Pulse Resp BP BP Pulse Ox 05/16/21 08:26 87 162/72 H 05/16/21 07:01 37.0 C 93 16 149/75 H 98 05/15/21 22:00 36.6 C 90 14 152/59 H 100 - Problem List & Annotations (1) Sepsis SNOMED Code(s): 93693746 Code(s): A41.9 - SEPSIS, UNSPECIFIED ORGANISM Status: Acute Current Visit: Yes Qualifiers: Sepsis type: sepsis due to unspecified organism Sepsis acute organ dysfunction status: with acute organ dysfunction Severe sepsis acute organ dysfunction type: acute renal failure Acute renal failure type: unspecified Severe sepsis shock status: without septic shock Qualified Code(s): A41.9 - Sepsis, unspecified organism; R65.20 - Severe sepsis without septic shock; N17.9 - Acute kidney failure, unspecified (2) Pyelonephritis SNOMED Code(s): 47547733 Code(s): N12 - TUBULO-INTERSTITIAL NEPHRITIS, NOT SPCF ACUTE OR CHRONIC Status: Acute Current Visit: No (3) TOMASA (acute kidney injury) SNOMED Code(s): 59819259, 86433926 Code(s): N17.9 - ACUTE KIDNEY FAILURE, UNSPECIFIED Status: Acute Current Visit: Yes (4) Dehydration, severe SNOMED Code(s): 379294901 Code(s): E86.0 - DEHYDRATION Status: Acute Current Visit: Yes (5) Pancreatitis SNOMED Code(s): 79150874 Code(s): K85.90 - ACUTE PANCREATITIS WITHOUT NECROSIS OR INFECTION, UNSP Status: Acute Current Visit: Yes Qualifiers: Chronicity: acute Pancreatitis type: unspecified pancreatitis type (6) Diabetes SNOMED Code(s): 36679009 Code(s): E11.9 - TYPE 2 DIABETES MELLITUS WITHOUT COMPLICATIONS Status: Chronic Current Visit: No Qualifiers: Diabetes mellitus type: type 2 Diabetes mellitus superintendent container terminal insulin use: unspecified fdc insulin use status Diabetes mellitus complication status: without complication Qualified Code(s): E11.9 - Type 2 diabetes mellitus without complications (7) Hyperglycemia due to type 2 diabetes mellitus SNOMED Code(s): 304486618438973, 926565320847416 Code(s): E11.65 - TYPE 2 DIABETES MELLITUS WITH HYPERGLYCEMIA Status: Acute Current Visit: Yes Qualifiers: Diabetes mellitus superintendent container terminal insulin use: without superintendent container terminal use Qualified Code(s): E11.65 - Type 2 diabetes mellitus with hyperglycemia (8) Hyponatremia SNOMED Code(s): 24705967 Code(s): E87.1 - HYPO-OSMOLALITY AND HYPONATREMIA Status: Acute Current Visit: Yes (9) Hyperlipidemia SNOMED Code(s): 63247723 Code(s): E78.5 - HYPERLIPIDEMIA, UNSPECIFIED Status: Chronic Current Visit: Yes Qualifiers: Hyperlipidemia type: unspecified Qualified Code(s): E78.5 - Hyperlipidemia, unspecified (10) Hypertension SNOMED Code(s): 14724610 Code(s): I10 - ESSENTIAL (PRIMARY) HYPERTENSION Status: Chronic Current Visit: Yes Qualifiers: Hypertension type: primary hypertension Qualified Code(s): I10 - Essential (primary) hypertension - Problem List Review Problem List Initiated/Reviewed/Updated: Yes - My Orders Last 24 Hours: My Active Orders 05/16/21 09:34 Ondansetron [Zofran ODT] 4 mg PO Q8H PRN 05/16/21 20:00 Insulin Glarg,Human.Rec.Analog [LantUS] 10 unit SUBCUT BEDTIME 05/17/21 05:11 BASIC METABOLIC PANEL,BMP [CHEM] Routine CBC WITH AUTO DIFF [HEME] Routine - Assessment Assessment:: 65 yo female hospital day #4 admitted with sepsis secondary to pyelonephritis, severe dehydration with TOMASA, and pancreatitis. Continues to improve from a symptom and lab standpoint. - Plan Plan:: #1 Sepsis, secondary to #2 #2 Pyelonephritis - Continues to improve. - Vitals stable. WBC remains normal. - Interestingly, her urine and blood cultures returned growing enterobacter not responsive to ceftriaxone. Patient has dramatically improved since admit, which is somewhat odd being she has not been on covering antibiotics. - Regardless, will d/c ceftriaxone today. Only oral options are bactrim and FQ. Given renal status, bactrim is not recommended. Therefore, will do levofloxacin renally dosed. - Given bacteremia and the fact that she has not been on correct antibiotics thus far, would cover her for another week with antibiotics. She will do 750 today and then do 2 more doses of 500 mg with doses every other day. - Will d/c IV fluids today. Can bolus PRN. #3 TOMASA #4 Severe dehydration - Creatinine severely elevated on admission, likely secondary to severe dehydration. - Continues to downtrend nicely. - Will d/c IV fluids today. - She is encouraged to drink lots of fluids today. - Recheck labs in the am. #5 Acute pancreatitis, clinically resolved - Cause is multifactorial. - Will need outpatient gall bladder u/s. - Continue low fat, low residue, ADA diet as tolerated. - No further rechecks on her lipase as it will not mold changer. #6 Hyperglycemia without DKA #7 Type 2 DM #8 Pseudohyponatremia, secondary to #6 - Glucoses better than admit but still above goal. - Will increase lantus to 10 units. - Continue SSI with meals. - Holding all oral medications. Likely will be discharged on insulin and maybe metformin (depending on renal function) until her pancreas has recovered. - Will need close follow-up in the outpatient setting for medication adjustment. #9 Hyperlipidemia #10 Hypertension - Home meds held except metoprolol given TOMASA as above. - Will add back as indicated by BP and as allowed by creatinine. Patient will remain on acute today - anticipate possible d/c tomorrow. Culture results available. Main d/c criteria now is that I would like to see her creatinine <2 before d/c. IV fluids will be d/c'd today and she will push PO fluids. Will recheck labs in the am. Heparin for VTE prophylaxis as lovenox is contraindicated with her renal function. Code status is full.
[2021-05-16] MEDS: Heparin Sodium 5,000 Units/ML Vial SUBCUT SCH ×2 (10:56→21:36)
[2021-05-16] MEDS ORDERED: Insulin Lispro 100 Units/ML 3 ML Vial SUBCUT ONE (18:27)
[2021-05-16] MEDS ORDERED: Insulin Glarg,Human.Rec.Analog 100 Unit/ML SUBCUT SCH (20:00)
[2021-05-16] MEDS: Ondansetron 4 MG Tab.DIS PO PRN (20:47)
[2021-05-17] MEDS: Aspirin 81 MG Tab.Chew PO SCH (07:20)
[2021-05-17] MEDS: Calcium Carbonate/Vitamin D3 1250 MG-5 MCG Tab PO SCH ×2 (07:23→17:32)
[2021-05-17] MEDS: Metoprolol Succinate 50 MG Tab.ER PO SCH (07:23)
[2021-05-17] MEDS: Insulin Lispro 100 Units/ML 3 ML Vial SUBCUT SCH ×3 (07:26→17:32)
[2021-05-17 08:11] LABS: ANION GAP 11.9 mmol/L (5-15)
[2021-05-17] MEDS ORDERED: cefTRIAXone 1 GM Vial ONE (08:21)
[2021-05-17] MEDS ORDERED: Sodium Chloride 0.9% with KCl 1,000 ML IV SCH (09:30)
--- NOTE | 2021-05-17 09:34 | PCM.PN ---
- General Info Date of Service: 05/17/21 Subjective Update: 65 yo female hospital day #5 admitted with sepsis secondary to pyelonephritis, severe dehydration with TOMASA, and pancreatitis. Feeling somewhat better today. Still not eating/drinking great but is seeing some improvements. Appetite is better each day. Still has some nausea at times requiring zofran. No vomiting. Stools are regular. She is voiding well without concerns. - Review of Systems General: Reports: No Symptoms HEENT: Reports: No Symptoms Pulmonary: Reports: No Symptoms Cardiovascular: Reports: No Symptoms Gastrointestinal: Reports: Decreased Appetite, Nausea. Denies: Abdominal Pain, Constipation, Diarrhea, Vomiting Genitourinary: Reports: No Symptoms Musculoskeletal: Reports: No Symptoms Skin: Reports: No Symptoms Neurological: Reports: No Symptoms - Patient Data Vitals - Most Recent: Last Vital Signs Temp 35.8 C L 05/17/21 06:00 Pulse 95 05/17/21 07:23 Resp 16 05/17/21 06:00 BP 159/74 H 05/17/21 07:23 Pulse Ox 97 05/17/21 06:00 Weight - Most Recent: 64.864 kg I&O - Last 24 Hours: Intake & Output 05/16/21 05/17/21 05/17/21 22:59 06:59 14:59 Intake Total 100 240 Balance 100 240 Lab Results Last 24 Hours: Laboratory Results - last 24 hr 05/16/21 05/16/21 05/16/21 Range/Units 10:55 17:38 20:51 WBC (4.0-10.0) x10^3/uL RBC (4.00-5.50) x10^6/uL Hgb (12.0-16.0) g/dL Hct (33.0-47.0) % MCV (78.0-93.0) fL MCH (26.0-32.0) pg MCHC (32.0-36.0) g/dL RDW Coeff of Kris (10.0-15.0) % Plt Count (130-400) x10^3/uL Immature Gran % (Auto) (0.00-0.43) % Neut % (Auto) (50.0-80.0) % Lymph % (Auto) (25.0-50.0) % Mcdonald % (Auto) (2.0-11.0) % Eos % (Auto) (0.0-4.0) % Baso % (Auto) (0.2-1.2) % Neut # (Auto) (1.8-7.7) x10^3/uL Lymph # (Auto) (1.0-4.8) x10^3/uL Mcdonald # (Auto) (0.0-0.8) x10^3/uL Eos # (Auto) (0.0-0.5) x10^3/uL Baso # (Auto) (0.0-0.2) x10^3/uL Immature Gran # (Auto) (0.00-0.07) x10^3/uL Sodium (136-145) mmol/L Potassium (3.5-5.1) mmol/L Chloride (98-107) mmol/L Carbon Dioxide (21-32) mmol/L Anion Gap (5-15) mmol/L BUN (7-18) mg/dL Creatinine (0.55-1.02) mg/dL Est Cr Clr Drug Dosing mL/min Estimated GFR (MDRD) Glucose (70-99) mg/dL POC Glucose 337 H 423 H* 319 H (70-99) mg/dL Calcium (8.5-10.1) mg/dL 05/17/21 05/17/21 05/17/21 Range/Units 07:22 07:33 07:33 WBC 8.9 (4.0-10.0) x10^3/uL RBC 4.05 (4.00-5.50) x10^6/uL Hgb 12.1 (12.0-16.0) g/dL Hct 34.5 (33.0-47.0) % MCV 85.2 (78.0-93.0) fL MCH 29.9 (26.0-32.0) pg MCHC 35.1 (32.0-36.0) g/dL RDW Coeff of Kris 12.3 (10.0-15.0) % Plt Count 418 H (130-400) x10^3/uL Immature Gran % (Auto) 1.20 H (0.00-0.43) % Neut % (Auto) 81.3 H (50.0-80.0) % Lymph % (Auto) 10.6 L (25.0-50.0) % Mcdonald % (Auto) 6.3 (2.0-11.0) % Eos % (Auto) 0.5 (0.0-4.0) % Baso % (Auto) 0.1 L (0.2-1.2) % Neut # (Auto) 7.2 (1.8-7.7) x10^3/uL Lymph # (Auto) 0.9 L (1.0-4.8) x10^3/uL Mcdonald # (Auto) 0.6 (0.0-0.8) x10^3/uL Eos # (Auto) 0.0 (0.0-0.5) x10^3/uL Baso # (Auto) 0.0 (0.0-0.2) x10^3/uL Immature Gran # (Auto) 0.11 H (0.00-0.07) x10^3/uL Sodium 143 (136-145) mmol/L Potassium 2.9 L* (3.5-5.1) mmol/L Chloride 103 (98-107) mmol/L Carbon Dioxide 31 (21-32) mmol/L Anion Gap 11.9 (5-15) mmol/L BUN 29 H (7-18) mg/dL Creatinine 2.3 H (0.55-1.02) mg/dL Est Cr Clr Drug Dosing 22.52 mL/min Estimated GFR (MDRD) 21 Glucose 279 H (70-99) mg/dL POC Glucose 281 H (70-99) mg/dL Calcium 8.4 L (8.5-10.1) mg/dL Stalin Results Last 24 Hours: Microbiology 05/13/21 22:15 Aerobic Blood Culture - Preliminary Blood - Venous - Lab Draw NO GROWTH AFTER 3 DAYS Anaerobic Blood Culture - Preliminary NO GROWTH AFTER 3 DAYS 05/13/21 22:08 Aerobic Blood Culture - Preliminary Blood - Venous NO GROWTH AFTER 3 DAYS Anaerobic Blood Culture - Final Enterobacter Aerogenes Med Orders - Current: Current Medications Acetaminophen (Acetaminophen 325 Mg Tab) 650 mg PO Q4H PRN PRN Reason: Pain (Mild 1-3)/fever Aspirin (Aspirin 81 Mg Tab.Chew) 81 mg PO DAILY JO Last Admin: 05/17/21 07:20 Dose: 81 mg Documented by: Calcium Carbonate (Calcium Carbonate/Vitamin D3 1250 Mg-5 Mcg Tab) 1 tab PO BIDMEALS [facility] Last Admin: 05/17/21 07:23 Dose: 1 tab Documented by: Dextrose/Water (50% Dextrose In Water 50 Ml Syringe) 50 ml IVPUSH ASDIRECTED PRN PRN Reason: Hypoglycemia Glucagon (Glucagon,Human Recombinant 1 Mg Vial) 1 mg IM ASDIRECTED PRN PRN Reason: Hypoglycemia Heparin Sodium (Porcine) (Heparin Sodium 5,000 Units/Ml Vial) 5,000 units SUBCUT Q12H [facility] Last Admin: 05/16/21 21:36 Dose: 5,000 units Documented by: Potassium Chloride/Sodium Chloride (Normal Saline With 40 Meq Kcl) 1,000 mls @ 100 mls/hr IV ASDIRECTED [facility] Stop: 05/17/21 21:30 Insulin Glargine (Insulin Glarg,Human.Rec.Analog 100 Unit/Ml) 10 unit SUBCUT BEDTIME [facility] Last Admin: 05/16/21 20:57 Dose: 10 unit Documented by: Insulin Human Lispro (Insulin Lispro 100 Units/Ml 3 Ml Vial) 0 unit SUBCUT TIDMEALS [facility]; Protocol Last Admin: 05/17/21 07:26 Dose: 3 unit Documented by: Metoprolol Succinate (Metoprolol Succinate 50 Mg Tab.Er) 100 mg PO DAILY [facility] Last Admin: 05/17/21 07:23 Dose: 100 mg Documented by: Ondansetron HCl (Ondansetron 4 Mg Tab.Dis) 4 mg PO Q8H PRN PRN Reason: Nausea/Vomiting Last Admin: 05/16/21 20:47 Dose: 4 mg Documented by: Sodium Chloride (Sodium Chloride 0.9% 10 Ml Syringe) 10 ml FLUSH ASDIRECTED PRN PRN Reason: Keep Vein Open Discontinued Medications Ceftriaxone Sodium (Ceftriaxone 2 Gm Vial) 2 gm IVPUSH STAT ONE Stop: 05/13/21 22:29 Last Admin: 05/13/21 22:38 Dose: 2 gm Documented by: Ceftriaxone Sodium (Ceftriaxone 2 Gm Vial) 2 gm IVPUSH DAILY [facility] Last Admin: 05/16/21 08:36 Dose: 2 gm Documented by: Enoxaparin Sodium (Enoxaparin 30 Mg/0.3 Ml Syringe) 30 mg SUBCUT DAILY@1999 [facility] Hydrochlorothiazide (Hydrochlorothiazide 25 Mg Tab) 25 mg PO DAILY [facility] Lactated Ringer's (Ringers, Lactated) 1,000 mls @ 999 mls/hr IV ONETIME ONE Stop: 05/13/21 23:06 Last Admin: 05/13/21 22:20 Dose: 999 mls/hr Documented by: Lactated Ringer's (Ringers, Lactated) 1,000 mls @ 999 mls/hr IV ONETIME ONE Stop: 05/13/21 23:50 Last Admin: 05/13/21 23:10 Dose: 999 mls/hr Documented by: Sodium Chloride (Normal Saline) 1,000 mls @ 500 mls/hr IV ASDIRECTED [facility] Sodium Chloride (Normal Saline) 1,000 mls @ 150 mls/hr IV ASDIRECTED [facility] Last Admin: 05/14/21 10:47 Dose: 200 mls/hr Documented by: Sodium Chloride (Normal Saline) 1,000 mls @ 500 mls/hr IV ASDIRECTED [facility] Last Admin: 05/14/21 00:35 Dose: 500 mls/hr Documented by: Sodium Chloride (Normal Saline) 1,000 mls @ 125 mls/hr IV ASDIRECTED [facility] Last Admin: 05/14/21 22:05 Dose: 150 mls/hr Documented by: Insulin Glargine (Insulin Glarg,Human.Rec.Analog 100 Unit/Ml) 8 unit SUBCUT BEDTIME [facility] Last Admin: 05/15/21 21:10 Dose: 8 unit Documented by: Insulin Human Lispro (Insulin Lispro 100 Units/Ml 3 Ml Vial) 7 unit SUBCUT ONETIME ONE Stop: 05/16/21 18:28 Last Admin: 05/16/21 18:53 Dose: 7 unit Documented by: Insulin Human Regular (Insulin Regular, Human 100 Units/Ml 3 Ml Vial) 5 unit SUBCUT NOW STA Stop: 05/13/21 23:13 Last Admin: 05/13/21 23:21 Dose: 5 units Documented by: Levofloxacin (Levofloxacin 500 Mg Tab) 750 mg PO ONETIME ONE Stop: 05/16/21 09:33 Last Admin: 05/16/21 10:56 Dose: 750 mg Documented by: Ondansetron HCl (Ondansetron 4 Mg/2 Ml Sdv) 4 mg IV ONETIME ONE Stop: 05/13/21 22:07 Last Admin: 05/13/21 22:25 Dose: 4 mg Documented by: Ondansetron HCl (Ondansetron 4 Mg/2 Ml Sdv) 4 mg IV Q6H PRN PRN Reason: Nausea/Vomiting Last Admin: 05/15/21 17:48 Dose: 4 mg Documented by: - Exam General: Alert, Oriented, Cooperative, No Acute Distress HEENT: Mucous Membr. Moist/[place] Neck: Supple, Trachea Midline, No Thyromegaly. No: Lymphadenopathy Lungs: Clear to Auscultation, Normal Respiratory Effort Cardiovascular: Regular Rate, Regular Rhythm, No Murmurs GI/Abdominal Exam: Normal Bowel Sounds, Soft, Non-Tender, No Organomegaly, No Distention, No Mass Extremities: Normal Inspection, Non-Tender, No Pedal Edema, Normal Capillary Refill Peripheral Pulses: 2+: Radial (L), Radial (R) Skin: Warm, Dry, Intact Neurological: No New Focal Deficit - Patient Data Lab Results Last 24 hrs: Laboratory Results - last 24 hr 05/16/21 05/16/21 05/16/21 Range/Units 10:55 17:38 20:51 WBC (4.0-10.0) x10^3/uL RBC (4.00-5.50) x10^6/uL Hgb (12.0-16.0) g/dL Hct (33.0-47.0) % MCV (78.0-93.0) fL MCH (26.0-32.0) pg MCHC (32.0-36.0) g/dL RDW Coeff of Kris (10.0-15.0) % Plt Count (130-400) x10^3/uL Immature Gran % (Auto) (0.00-0.43) % Neut % (Auto) (50.0-80.0) % Lymph % (Auto) (25.0-50.0) % Mcdonald % (Auto) (2.0-11.0) % Eos % (Auto) (0.0-4.0) % Baso % (Auto) (0.2-1.2) % Neut # (Auto) (1.8-7.7) x10^3/uL Lymph # (Auto) (1.0-4.8) x10^3/uL Mcdonald # (Auto) (0.0-0.8) x10^3/uL Eos # (Auto) (0.0-0.5) x10^3/uL Baso # (Auto) (0.0-0.2) x10^3/uL Immature Gran # (Auto) (0.00-0.07) x10^3/uL Sodium (136-145) mmol/L Potassium (3.5-5.1) mmol/L Chloride (98-107) mmol/L Carbon Dioxide (21-32) mmol/L Anion Gap (5-15) mmol/L BUN (7-18) mg/dL Creatinine (0.55-1.02) mg/dL Est Cr Clr Drug Dosing mL/min Estimated GFR (MDRD) Glucose (70-99) mg/dL POC Glucose 337 H 423 H* 319 H (70-99) mg/dL Calcium (8.5-10.1) mg/dL 05/17/21 05/17/21 05/17/21 Range/Units 07:22 07:33 07:33 WBC 8.9 (4.0-10.0) x10^3/uL RBC 4.05 (4.00-5.50) x10^6/uL Hgb 12.1 (12.0-16.0) g/dL Hct 34.5 (33.0-47.0) % MCV 85.2 (78.0-93.0) fL MCH 29.9 (26.0-32.0) pg MCHC 35.1 (32.0-36.0) g/dL RDW Coeff of Kris 12.3 (10.0-15.0) % Plt Count 418 H (130-400) x10^3/uL Immature Gran % (Auto) 1.20 H (0.00-0.43) % Neut % (Auto) 81.3 H (50.0-80.0) % Lymph % (Auto) 10.6 L (25.0-50.0) % Mcdonald % (Auto) 6.3 (2.0-11.0) % Eos % (Auto) 0.5 (0.0-4.0) % Baso % (Auto) 0.1 L (0.2-1.2) % Neut # (Auto) 7.2 (1.8-7.7) x10^3/uL Lymph # (Auto) 0.9 L (1.0-4.8) x10^3/uL Mcdonald # (Auto) 0.6 (0.0-0.8) x10^3/uL Eos # (Auto) 0.0 (0.0-0.5) x10^3/uL Baso # (Auto) 0.0 (0.0-0.2) x10^3/uL Immature Gran # (Auto) 0.11 H (0.00-0.07) x10^3/uL Sodium 143 (136-145) mmol/L Potassium 2.9 L* (3.5-5.1) mmol/L Chloride 103 (98-107) mmol/L Carbon Dioxide 31 (21-32) mmol/L Anion Gap 11.9 (5-15) mmol/L BUN 29 H (7-18) mg/dL Creatinine 2.3 H (0.55-1.02) mg/dL Est Cr Clr Drug Dosing 22.52 mL/min Estimated GFR (MDRD) 21 Glucose 279 H (70-99) mg/dL POC Glucose 281 H (70-99) mg/dL Calcium 8.4 L (8.5-10.1) mg/dL Result Diagrams: 05/17/21 07:33 05/17/21 07:33 Stalin Results Last 24 hrs: Microbiology 05/13/21 22:15 Aerobic Blood Culture - Preliminary Blood - Venous - Lab Draw NO GROWTH AFTER 3 DAYS Anaerobic Blood Culture - Preliminary NO GROWTH AFTER 3 DAYS 05/13/21 22:08 Aerobic Blood Culture - Preliminary Blood - Venous NO GROWTH AFTER 3 DAYS Anaerobic Blood Culture - Final Enterobacter Aerogenes Sepsis Event Note - Evaluation Sepsis Screening Result: Possible Sepsis Risk - Focused Exam Vital Signs: Vital Signs Temp Pulse Pulse Resp BP BP BP 05/17/21 07:23 95 159/74 H 05/17/21 06:00 35.8 C L 95 16 159/74 H 05/16/21 21:44 36.2 C 92 20 143/54 H Pulse Ox 05/17/21 07:23 05/17/21 06:00 97 05/16/21 21:44 100 - Problem List & Annotations (1) Sepsis SNOMED Code(s): 14233029 Code(s): A41.9 - SEPSIS, UNSPECIFIED ORGANISM Status: Acute Current Vi sit: Yes Qualifiers: Sepsis type: sepsis due to unspecified organism Sepsis acute organ dysfunction status: with acute organ dysfunction Severe sepsis acute organ dysfunction type: acute renal failure Acute renal failure type: unspecified Severe sepsis shock status: without septic shock Qualified Code(s): A41.9 - Sepsis, unspecified organism; R65.20 - Severe sepsis without septic shock; N17.9 - Acute kidney failure, unspecified (2) Pyelonephritis SNOMED Code(s): 58206880 Code(s): N12 - TUBULO-INTERSTITIAL NEPHRITIS, NOT SPCF ACUTE OR CHRONIC Status: Acute Current Visit: No (3) TOMASA (acute kidney injury) SNOMED Code(s): 04437672, 62470703 Code(s): N17.9 - ACUTE KIDNEY FAILURE, UNSPECIFIED Status: Acute Current Visit: Yes (4) Dehydration, severe SNOMED Code(s): 602028211 Code(s): E86.0 - DEHYDRATION Status: Acute Current Visit: Yes (5) Hypokalemia SNOMED Code(s): 81898323 Code(s): E87.6 - HYPOKALEMIA Status: Acute Current Visit: Yes (6) Pancreatitis SNOMED Code(s): 60739079 Code(s): K85.90 - ACUTE PANCREATITIS WITHOUT NECROSIS OR INFECTION, UNSP Status: Acute Current Visit: Yes Qualifiers: Chronicity: acute Pancreatitis type: unspecified pancreatitis type (7) Diabetes SNOMED Code(s): 09441644 Code(s): E11.9 - TYPE 2 DIABETES MELLITUS WITHOUT COMPLICATIONS Status: Chronic Current Visit: No Qualifiers: Diabetes mellitus type: type 2 Diabetes mellitus snf insulin use: unspecified long term care phlebotomist insulin use status Diabetes mellitus complication status: without complication Qualified Code(s): E11.9 - Type 2 diabetes mellitus without complications (8) Hyperglycemia due to type 2 diabetes mellitus SNOMED Code(s): 280473373480101, 189494373552032 Code(s): E11.65 - TYPE 2 DIABETES MELLITUS WITH HYPERGLYCEMIA Status: Acute Current Visit: Yes Qualifiers: Diabetes mellitus long term care phlebotomist insulin use: without long term care phlebotomist use Qualified Code(s): E11.65 - Type 2 diabetes mellitus with hyperglycemia (9) Hyponatremia SNOMED Code(s): 43743569 Code(s): E87.1 - HYPO-OSMOLALITY AND HYPONATREMIA Status: Acute Current Visit: Yes (10) Hyperlipidemia SNOMED Code(s): 25366142 Code(s): E78.5 - HYPERLIPIDEMIA, UNSPECIFIED Status: Chronic Current Visit: Yes Qualifiers: Hyperlipidemia type: unspecified Qualified Code(s): E78.5 - Hyperlipidemia, unspecified (11) Hypertension SNOMED Code(s): 79144644 Code(s): I10 - ESSENTIAL (PRIMARY) HYPERTENSION Status: Chronic Current Visit: Yes Qualifiers: Hypertension type: primary hypertension Qualified Code(s): I10 - Essential (primary) hypertension - Problem List Review Problem List Initiated/Reviewed/Updated: Yes - My Orders Last 24 Hours: My Active Orders 05/16/21 09:34 Ondansetron [Zofran ODT] 4 mg PO Q8H PRN 05/16/21 20:00 Insulin Glarg,Human.Rec.Analog [LantUS] 10 unit SUBCUT BEDTIME 05/17/21 09:30 Sodium Chloride 0.9% with KCl [Normal Saline with 40 mEq KCl] 1,000 ml IV ASDIRECTED 05/18/21 05:11 BASIC METABOLIC PANEL,BMP [CHEM] Routine CBC WITH AUTO DIFF [HEME] Routine - Assessment Assessment:: 65 yo female hospital day #5 admitted with sepsis secondary to pyelonephritis, severe dehydration with TOMASA, and pancreatitis. Continues with steady improvement from a symptom and lab standpoint. - Plan Plan:: #1 Sepsis, secondary to #2, resolved #2 Pyelonephritis - Vitals stable. WBC remains normal. - Continue levofloxacin per urine and blood culture results. Will need 500 mg tomorrow and 500 mg on Tuesday to complete her antibiotic course. #3 TOMASA #4 Severe dehydration #5 Hypokalemia - Creatinine severely elevated on admission, likely secondary to severe dehydration. - Continues to downtrend nicely. - Does have a K of 2.9 today, down from 3.4 yesterday. - Also not drinking well enough to really flush through enough to get her creatinine <2. - Therefore, will do another liter of normal saline today with 40 mEq potassium. - Recheck labs in the am. #6 Acute pancreatitis, clinically resolved - Cause is multifactorial. - Will need gall bladder u/s. Can be done tomorrow inpatient or deferred to outpatient if u/s not available timely. - Continue low fat, low residue, ADA diet as tolerated. - No further rechecks on her lipase as it will not roving changer. #7 Hyperglycemia without DKA #8 Type 2 DM #9 Pseudohyponatremia, secondary to #6 - Glucoses increased now that she is eating better. - Will increase lantus to 15 units. - Continue SSI with meals. - Holding all oral medications. Likely will be discharged on insulin only until her pancreas and renal function have recovered. - Will need close follow-up in the outpatient setting for medication adjustment. #9 Hyperlipidemia #10 Hypertension - Home meds held except metoprolol given TOMASA as above. - Will add back as indicated by BP and as allowed by creatinine. Patient will remain on acute today due to IV fluids and potassium to be given today and the fact that she was only started on correct antibiotics yesterday - very likely will be discharged tomorrow. Will pass 96 hours of admission today but she does not require transfer to a higher level of care since she is improving and she is also not prepared for d/c home. Heparin for VTE prophylaxis as lovenox is contraindicated with her renal function - will increase heparin to TID today given improvement in renal function. Code status is full.
[2021-05-17] MEDS: Heparin Sodium 5,000 Units/ML Vial SUBCUT SCH ×2 (11:24→20:40)
[2021-05-17] MEDS: Ondansetron 4 MG Tab.DIS PO PRN (15:35)
[2021-05-17] MEDS ORDERED: Insulin Glarg,Human.Rec.Analog 100 Unit/ML SUBCUT SCH (20:00)
[2021-05-18 06:39] LABS: ANION GAP 9.7 mmol/L (5-15)
[2021-05-18] MEDS: Insulin Lispro 100 Units/ML 3 ML Vial SUBCUT SCH ×2 (07:44→11:24)
[2021-05-18] MEDS: Aspirin 81 MG Tab.Chew PO SCH (07:45)
[2021-05-18] MEDS: Metoprolol Succinate 50 MG Tab.ER PO SCH (07:45)
[2021-05-18] MEDS: Calcium Carbonate/Vitamin D3 1250 MG-5 MCG Tab PO SCH (07:45)
[2021-05-18] MEDS: Heparin Sodium 5,000 Units/ML Vial SUBCUT SCH ×2 (07:45→11:24)
[2021-05-18] MEDS: Ondansetron 4 MG Tab.DIS PO PRN (07:46)
[2021-05-18] MEDS ORDERED: Levofloxacin 500 MG Tab PO SCH (08:00)
--- NOTE | 2021-05-18 09:09 | PCM.DCSUM1 ---
Discharge Summary - Hospital Course Brief History: Mrs. Boyer is a 65 yo female who was admitted with sepsis secondary to pyelonephritis, TOMASA from severe dehydration, and pancreatitis after presenting to the ER for evaluation of nausea, vomiting, and generalized weakness. - Discharge Data Discharge Date: 05/18/21 Discharge Disposition: Home, Self-Care 01 Condition: Good - Referral to Home Health Primary Care Physician: Samreen Carson MD - Discharge Diagnosis/Problem(s) (1) Sepsis SNOMED Code(s): 83399431 ICD Code: A41.9 - SEPSIS, UNSPECIFIED ORGANISM Status: Acute Current Visit: Yes Qualifiers: Sepsis type: sepsis due to unspecified organism Sepsis acute organ dysfunction status: with acute organ dysfunction Severe sepsis acute organ dysfunction type: acute renal failure Acute renal failure type: unspecified Severe sepsis shock status: without septic shock Qualified Code(s): A41.9 - Sepsis, unspecified organism; R65.20 - Severe sepsis without septic shock; N17.9 - Acute kidney failure, unspecified (2) Pyelonephritis SNOMED Code(s): 87141899 ICD Code: N12 - TUBULO-INTERSTITIAL NEPHRITIS, NOT SPCF ACUTE OR CHRONIC Status: Acute Current Visit: No (3) TOMASA (acute kidney injury) SNOMED Code(s): 83897966, 77637565 ICD Code: N17.9 - ACUTE KIDNEY FAILURE, UNSPECIFIED Status: Acute Current Visit: Yes (4) Dehydration, severe SNOMED Code(s): 854465423 ICD Code: E86.0 - DEHYDRATION Status: Acute Current Visit: Yes (5) Hypokalemia SNOMED Code(s): 27986419 ICD Code: E87.6 - HYPOKALEMIA Status: Acute Current Visit: Yes (6) Pancreatitis SNOMED Code(s): 36273913 ICD Code: K85.90 - ACUTE PANCREATITIS WITHOUT NECROSIS OR INFECTION, UNSP Status: Acute Current Visit: Yes Qualifiers: Chronicity: acute Pancreatitis type: unspecified pancreatitis type (7) Diabetes SNOMED Code(s): 73545596 ICD Code: E11.9 - TYPE 2 DIABETES MELLITUS WITHOUT COMPLICATIONS Status: Chronic Current Visit: No Qualifiers: Diabetes mellitus type: type 2 Diabetes mellitus intermediate insulin use: unspecified intermediate accountant insulin use status Diabetes mellitus complication status: without complication Qualified Code(s): E11.9 - Type 2 diabetes mellitus without complications (8) Hyperglycemia due to type 2 diabetes mellitus SNOMED Code(s): 477156837320804, 471317630937408 ICD Code: E11.65 - TYPE 2 DIABETES MELLITUS WITH HYPERGLYCEMIA Status: Acute Current Visit: Yes Qualifiers: Diabetes mellitus intermediate accountant insulin use: without intermediate use Qualified Code(s): E11.65 - Type 2 diabetes mellitus with hyperglycemia (9) Hyponatremia SNOMED Code(s): 71264036 ICD Code: E87.1 - HYPO-OSMOLALITY AND HYPONATREMIA Status: Acute Current Visit: Yes (10) Hyperlipidemia SNOMED Code(s): 53987084 ICD Code: E78.5 - HYPERLIPIDEMIA, UNSPECIFIED Status: Chronic Current Visit: Yes Qualifiers: Hyperlipidemia type: unspecified Qualified Code(s): E78.5 - Hyperlipidemia, unspecified (11) Hypertension SNOMED Code(s): 60828663 ICD Code: I10 - ESSENTIAL (PRIMARY) HYPERTENSION Status: Chronic Current Visit: Yes Qualifiers: Hypertension type: primary hypertension Qualified Code(s): I10 - Essential (primary) hypertension - Patient Summary/Data Operative Procedure(s) Performed: none Complications: none Consults: none Labs Pending at D/C: none Recommended Follow-up Testing/Procedures: BMP, RUQ u/s Planned Operative Procedure(s) after DC: none Hospital Course: She was admitted and given IV fluids and IV antibiotics. She required significant fluid resuscitation, which she tolerated well. Symptoms were controlled with zofran. She was allowed to eat a low residue ADA diet as tolerated. Her home oral diabetes medications were held and she was given insulin instead. Her home anti-hypertensives have also been held due to TOMASA. Her blood pressures have been elevated but not to the point that she required any treatment urgently. She progressively improved with these interventions. However, on 05/16, her urine culture returned showing that this was actually resistant to the ceftriaxone she was on. Therefore, she was switched to oral levofloxacin. Her IV fluids were discontinued that day as well. She has been eating and drinking well. She did get another liter of fluids with potassium yesterday to supplement her oral intake. Her labs have progressively improved as well. Everything is back to baseline except her creatinine, which does continue to improve. She is feeling well enough today that it is felt she will be able to maintain adequate fluid intake at home. She will receive teaching on home insulin administration (her will do this). She will follow-up in clinic in 1 week. We will repeat her BMP and also get her gall bladder u/s set up at that time. Both she and her are comfortable with this plan. - Patient Instructions Diet: Diabetic Diet Driving: May Drive Today Showering/Bathing: May Shower Notify Provider of: Fever, Increased Pain, Nausea and/or Vomiting - Discharge Plan *PRESCRIPTION DRUG MONITORING PROGRAM REVIEWED*: No *COPY OF PRESCRIPTION DRUG MONITORING REPORT IN PATIENT DAMIÁN: No Home Medications: Home Meds Aspirin 81 mg PO DAILY 01/31/21 [History] Calcium Carbonate/Vitamin D3 [Caltrate 600 + D Soft Chew Tab] 1 each PO BIDMEALS 01/31/21 [History] Metoprolol Succinate [Toprol XL 100mg] 100 mg PO DAILY 01/31/21 [History] Multivitamin with Minerals [Multiple Vitamin] 1 tab PO DAILY 01/31/21 [History] Insulin Glarg,Human.Rec.Analog [Lantus] 15 unit SUBCUT BEDTIME #0 ml 05/18/21 [Rx] Ondansetron [Zofran ODT] 4 mg PO Q8H PRN tab.dis 05/18/21 [Rx] levoFLOXacin [Levaquin] 500 mg PO Q48H tablet 05/18/21 [Rx] Forms: ED Department Discharge Referrals: Samreen Carson MD [Primary Care Provider] - - Discharge Summary/Plan Comment DC Time >30 min.: No Total # of Minutes for Discharge Time: 25 - General Info Date of Service: 05/18/21 Subjective Update: Patient is feeling well this morning. Ate more for breakfast than she did all day yesterday. No nausea, vomiting, or diarrhea. Is feeling well enough to go home today. ROS completely negative. - Review of Systems General: Reports: No Symptoms HEENT: Reports: No Symptoms Pulmonary: Reports: No Symptoms Cardiovascular: Reports: No Symptoms Gastrointestinal: Reports: No Symptoms Genitourinary: Reports: No Symptoms Musculoskeletal: Reports: No Symptoms Skin: Reports: No Symptoms Neurological: Reports: No Symptoms - Patient Data Vitals - Most Recent: Last Vital Signs Temp 36.6 C 05/18/21 06:00 Pulse 83 05/18/21 07:45 Resp 18 05/17/21 22:00 BP 175/75 H 05/18/21 07:45 Pulse Ox 99 05/18/21 06:00 Weight - Most Recent: 65.771 kg I&O - Last 24 hours: Intake & Output 05/17/21 05/18/21 05/18/21 22:59 06:59 14:59 Intake Total 240 240 Balance 240 240 Lab Results - Last 24 hrs: Laboratory Results - last 24 hr 05/17/21 05/17/21 05/17/21 Range/Units 11:30 17:31 20:49 WBC (4.0-10.0) x10^3/uL RBC (4.00-5.50) x10^6/uL Hgb (12.0-16.0) g/dL Hct (33.0-47.0) % MCV (78.0-93.0) fL MCH (26.0-32.0) pg MCHC (32.0-36.0) g/dL RDW Coeff of Kris (10.0-15.0) % Plt Count (130-400) x10^3/uL Immature Gran % (Auto) (0.00-0.43) % Neut % (Auto) (50.0-80.0) % Lymph % (Auto) (25.0-50.0) % [place] % (Auto) (2.0-11.0) % Eos % (Auto) (0.0-4.0) % Baso % (Auto) (0.2-1.2) % Neut # (Auto) (1.8-7.7) x10^3/uL Lymph # (Auto) (1.0-4.8) x10^3/uL [place] # (Auto) (0.0-0.8) x10^3/uL Eos # (Auto) (0.0-0.5) x10^3/uL Baso # (Auto) (0.0-0.2) x10^3/uL Immature Gran # (Auto) (0.00-0.07) x10^3/uL Sodium (136-145) mmol/L Potassium (3.5-5.1) mmol/L Chloride (98-107) mmol/L Carbon Dioxide (21-32) mmol/L Anion Gap (5-15) mmol/L BUN (7-18) mg/dL Creatinine (0.55-1.02) mg/dL Est Cr Clr Drug Dosing mL/min Estimated GFR (MDRD) Glucose (70-99) mg/dL POC Glucose 280 H 391 H 356 H (70-99) mg/dL Calcium (8.5-10.1) mg/dL 05/18/21 05/18/21 Range/Units 06:05 06:05 WBC 8.1 (4.0-10.0) x10^3/uL RBC 3.57 L (4.00-5.50) x10^6/uL Hgb 10.6 L D (12.0-16.0) g/dL Hct 30.3 L (33.0-47.0) % MCV 84.9 (78.0-93.0) fL MCH 29.7 (26.0-32.0) pg MCHC 35.0 (32.0-36.0) g/dL RDW Coeff of Kris 12.2 (10.0-15.0) % Plt Count 347 (130-400) x10^3/uL Immature Gran % (Auto) 1.10 H (0.00-0.43) % Neut % (Auto) 75.9 (50.0-80.0) % Lymph % (Auto) 13.1 L (25.0-50.0) % [place] % (Auto) 7.8 (2.0-11.0) % Eos % (Auto) 1.7 (0.0-4.0) % Baso % (Auto) 0.4 (0.2-1.2) % Neut # (Auto) 6.1 (1.8-7.7) x10^3/uL Lymph # (Auto) 1.1 (1.0-4.8) x10^3/uL [place] # (Auto) 0.6 (0.0-0.8) x10^3/uL Eos # (Auto) 0.1 (0.0-0.5) x10^3/uL Baso # (Auto) 0.0 (0.0-0.2) x10^3/uL Immature Gran # (Auto) 0.09 H (0.00-0.07) x10^3/uL Sodium 140 (136-145) mmol/L Potassium 3.7 (3.5-5.1) mmol/L Chloride 104 (98-107) mmol/L Carbon Dioxide 30 (21-32) mmol/L Anion Gap 9.7 (5-15) mmol/L BUN 20 H (7-18) mg/dL Creatinine 2.0 H (0.55-1.02) mg/dL Est Cr Clr Drug Dosing 25.90 mL/min Estimated GFR (MDRD) 25 Glucose 341 H (70-99) mg/dL POC Glucose (70-99) mg/dL Calcium 7.8 L (8.5-10.1) mg/dL [facility] Results - Last 24 hrs: Microbiology 05/13/21 22:15 Aerobic Blood Culture - Preliminary Blood - Venous - Lab Draw NO GROWTH AFTER 4 DAYS Anaerobic Blood Culture - Preliminary NO GROWTH AFTER 4 DAYS 05/13/21 22:08 Aerobic Blood Culture - Preliminary Blood - Venous NO GROWTH AFTER 4 DAYS Anaerobic Blood Culture - Final Enterobacter Aerogenes Med Orders - Current: Current Medications Acetaminophen (Acetaminophen 325 Mg Tab) 650 mg PO Q4H PRN PRN Reason: Pain (Mild 1-3)/fever Aspirin (Aspirin 81 Mg Tab.Chew) 81 mg PO DAILY [facility] Last Admin: 05/18/21 07:45 Dose: 81 mg Documented by: Calcium Carbonate (Calcium Carbonate/Vitamin D3 1250 Mg-5 Mcg Tab) 1 tab PO BIDMEALS [facility] Last Admin: 05/18/21 07:45 Dose: 1 tab Documented by: Dextrose/Water (50% Dextrose In Water 50 Ml Syringe) 50 ml IVPUSH ASDIRECTED PRN PRN Reason: Hypoglycemia Glucagon (Glucagon,Human Recombinant 1 Mg Vial) 1 mg IM ASDIRECTED PRN PRN Reason: Hypoglycemia Heparin Sodium (Porcine) (Heparin Sodium 5,000 Units/Ml Vial) 5,000 units SUBCUT TID [facility] Last Admin: 05/18/21 07:45 Dose: 5,000 units Documented by: Insulin Glargine (Insulin Glarg,Human.Rec.Analog 100 Unit/Ml) 15 unit SUBCUT BEDTIME [facility] Last Admin: 05/17/21 20:50 Dose: 15 units Documented by: Insulin Human Lispro (Insulin Lispro 100 Units/Ml 3 Ml Vial) 0 unit SUBCUT TIDMEALS [facility]; Protocol Last Admin: 05/18/21 07:44 Dose: 4 unit Documented by: Levofloxacin (Levofloxacin 500 Mg Tab) 500 mg PO Q48H [facility] Last Admin: 05/18/21 07:46 Dose: 500 mg Documented by: Metoprolol Succinate (Metoprolol Succinate 50 Mg Tab.Er) 100 mg PO DAILY [facility] Last Admin: 05/18/21 07:45 Dose: 100 mg Documented by: Ondansetron HCl (Ondansetron 4 Mg Tab.Dis) 4 mg PO Q8H PRN PRN Reason: Nausea/Vomiting Last Admin: 05/18/21 07:46 Dose: 4 mg Documented by: Sodium Chloride (Sodium Chloride 0.9% 10 Ml Syringe) 10 ml FLUSH ASDIRECTED PRN PRN Reason: Keep Vein Open Discontinued Medications Ceftriaxone Sodium (Ceftriaxone 2 Gm Vial) 2 gm IVPUSH STAT ONE Stop: 05/13/21 22:29 Last Admin: 05/13/21 22:38 Dose: 2 gm Documented by: Ceftriaxone Sodium (Ceftriaxone 2 Gm Vial) 2 gm IVPUSH DAILY [facility] Last Admin: 05/16/21 08:36 Dose: 2 gm Documented by: Ceftriaxone Sodium (Ceftriaxone 1 Gm Vial) Confirm Administered Dose 1 gm .ROUTE .STK-MED ONE Stop: 05/17/21 08:22 Last Admin: 05/18/21 08:53 Dose: Not Given Documented by: Enoxaparin Sodium (Enoxaparin 30 Mg/0.3 Ml Syringe) 30 mg SUBCUT DAILY@2000 [facility] Heparin Sodium (Porcine) (Heparin Sodium 5,000 Units/Ml Vial) 5,000 units SUBCUT Q12H [facility] Last Admin: 05/16/21 21:36 Dose: 5,000 units Documented by: Hydrochlorothiazide (Hydrochlorothiazide 25 Mg Tab) 25 mg PO DAILY [facility] Lactated Ringer's (Ringers, Lactated) 1,000 mls @ 999 mls/hr IV ONETIME ONE Stop: 05/13/21 23:06 Last Admin: 05/13/21 22:20 Dose: 999 mls/hr Documented by: Lactated Ringer's (Ringers, Lactated) 1,000 mls @ 999 mls/hr IV ONETIME ONE Stop: 05/13/21 23:50 Last Admin: 05/13/21 23:10 Dose: 999 mls/hr Documented by: Sodium Chloride (Normal Saline) 1,000 mls @ 500 mls/hr IV ASDIRECTED JO Sodium Chloride (Normal Saline) 1,000 mls @ 150 mls/hr IV ASDIRECTED [facility] Last Admin: 05/14/21 10:47 Dose: 200 mls/hr Documented by: Sodium Chloride (Normal Saline) 1,000 mls @ 500 mls/hr IV ASDIRECTED [facility] Last Admin: 05/14/21 00:35 Dose: 500 mls/hr Documented by: Sodium Chloride (Normal Saline) 1,000 mls @ 125 mls/hr IV ASDIRECTED [facility] Last Admin: 05/14/21 22:05 Dose: 150 mls/hr Documented by: Potassium Chloride/Sodium Chloride (Normal Saline With 40 Meq Kcl) 1,000 mls @ 100 mls/hr IV ASDIRECTED [facility] Stop: 05/17/21 21:30 Last Admin: 05/17/21 12:21 Dose: 100 mls/hr Documented by: Insulin Glargine (Insulin Glarg,Human.Rec.Analog 100 Unit/Ml) 8 unit SUBCUT BEDTIME [facility] Last Admin: 05/15/21 21:10 Dose: 8 unit Documented by: Insulin Glargine (Insulin Glarg,Human.Rec.Analog 100 Unit/Ml) 10 unit SUBCUT BEDTIME [facility] Last Admin: 05/16/21 20:57 Dose: 10 unit Documented by: Insulin Human Lispro (Insulin Lispro 100 Units/Ml 3 Ml Vial) 7 unit SUBCUT ONETIME ONE Stop: 05/16/21 18:28 Last Admin: 05/16/21 18:53 Dose: 7 unit Documented by: Insulin Human Regular (Insulin Regular, Human 100 Units/Ml 3 Ml Vial) 5 unit SUBCUT NOW STA Stop: 05/13/21 23:13 Last Admin: 05/13/21 23:21 Dose: 5 units Documented by: Levofloxacin (Levofloxacin 500 Mg Tab) 750 mg PO ONETIME ONE Stop: 05/16/21 09:33 Last Admin: 05/16/21 10:56 Dose: 750 mg Documented by: Ondansetron HCl (Ondansetron 4 Mg/2 Ml Sdv) 4 mg IV ONETIME ONE Stop: 05/13/21 22:07 Last Admin: 05/13/21 22:25 Dose: 4 mg Documented by: Ondansetron HCl (Ondansetron 4 Mg/2 Ml Sdv) 4 mg IV Q6H PRN PRN Reason: Nausea/Vomiting Last Admin: 05/15/21 17:48 Dose: 4 mg Documented by: - Exam General: Reports: Alert, Oriented, No Acute Distress HEENT: Reports: Mucous Membr. Moist/[place] Neck: Reports: Supple, Trachea Midline, No Thyromegaly. Denies: Lymphadenopathy Lungs: Reports: Clear to Auscultation, Normal Respiratory Effort Cardiovascular: Reports: Regular Rate, Regular Rhythm, No Murmurs GI/Abdominal Exam: Normal Bowel Sounds, Soft, Non-Tender, No Organomegaly, No Distention, No Mass Extremities: Normal Inspection, Non-Tender, No Pedal Edema, Normal Capillary Refill Skin: Reports: Warm, Dry, Intact Neurological: Reports: No New Focal Deficit
== END 2021-05-18 12:20 | disposition home or self-care (01) | DRG 871 ==
LOC: VM.ED 21:35 → VM.MS 22:55 → UNDODISIN 05-18 12:20
PROVIDERS: ADMIT Nurse Practitioner Family; ATTEND Family Medicine
DX: N12 Tubulo-interstitial nephritis, not specified as acute or chronic (principal); A41.9 Sepsis, unspecified organism; K85.90 Acute pancreatitis without necrosis or infection, unspecified; N17.9 Acute kidney failure, unspecified; E87.1 Hypo-osmolality and hyponatremia; N10 Acute pyelonephritis; R65.20 Severe sepsis without septic shock; E86.0 Dehydration; E87.6 Hypokalemia; Z20.822 Contact with and (suspected) exposure to COVID-19; E11.65 Type 2 diabetes mellitus with hyperglycemia; E78.5 Hyperlipidemia, unspecified; Z79.82 Long term (current) use of aspirin; E78.00 Pure hypercholesterolemia, unspecified; I12.9 Hypertensive chronic kidney disease with stage 1 through stage 4 chronic kidney disease, or unspecified chronic kidney disease; E11.22 Type 2 diabetes mellitus with diabetic chronic kidney disease; T50.995A Adverse effect of other drugs, medicaments and biological substances, initial encounter; N18.30 Chronic kidney disease, stage 3 unspecified; Z79.899 Other long term (current) drug therapy; Z79.84 Long term (current) use of oral hypoglycemic drugs
CPT/HCPCS: 36415; 74176; 80048; 80053; 81001; 82010; 82803; 82947; 83036; 83605; 83615; 83690; 83735; 84145; 85025; 86140; 87040; 87077; 87086; 87088; 87186; 96374; 96375; 99223; 99285-25; A9270-GY; J0696; J1644; J1815-GY; J2405; J3480; J7030; J7120; U0002

== ENCOUNTER 2024-08-10 14:52 | Emergency (ER) | payer BC, MEDICARE | END 2024-08-10 15:15 | disposition left against medical advice (07) | LOC: VM.ED 14:52 | DX: Z53.21 Procedure and treatment not carried out due to patient leaving prior to being seen by health care provider (principal) ==

== ENCOUNTER 2024-11-12 07:02 | Emergency (ER) | payer MEDICARE ==
[2024-11-12 07:52] LABS: APPEARANCE,URINE CLOUDY (CLEAR); BILIRUBIN,URINE NEGATIVE (NEGATIVE); COLOR,URINE LIGHT YELLOW (YELLOW); GLUCOSE,URINE 500 mg/dL (NEGATIVE); KETONES,URINE NEGATIVE (NEGATIVE); LEUKOCYTE ESTERASE,URINE LARGE (NEGATIVE); NITRITE,URINE NEGATIVE (NEGATIVE); OCCULT BLOOD,URINE MODERATE (NEGATIVE); PROTEIN,URINE >=300 mg/dL (NEGATIVE); UROBILINOGEN,URINE 0.2 EU/dL (0.2)
[2024-11-12 08:01] LABS: RBC,URINE 20-30 /HPF (NOT SEEN); SQUAMOUS EPITHELIAL CELLS,UR OCCASIONAL /HPF (NOT SEEN); WBC,URINE PACKED /HPF (NOT SEEN)
[2024-11-12 08:02] LABS: BACTERIA,URINE FEW /HPF (NOT SEEN); MUCUS,URINE FEW /LPF (NOT SEEN)
== END 2024-11-12 08:04 | disposition home or self-care (01) ==
LOC: VM.ED 07:02
DX: N39.0 Urinary tract infection, site not specified (principal); I12.9 Hypertensive chronic kidney disease with stage 1 through stage 4 chronic kidney disease, or unspecified chronic kidney disease; N18.9 Chronic kidney disease, unspecified; E11.22 Type 2 diabetes mellitus with diabetic chronic kidney disease; E78.00 Pure hypercholesterolemia, unspecified; Z79.84 Long term (current) use of oral hypoglycemic drugs; Z79.4 Long term (current) use of insulin; Z79.899 Other long term (current) drug therapy; Z79.82 Long term (current) use of aspirin
CPT/HCPCS: 81001; 87086; 87088; 99283